=== PATIENT | female | born 1975 | race Caucasian/White ===

== ENCOUNTER 2022-11-17 09:45 | Outpatient (REF) | payer MEDICAID, SELFPAY ==
[2022-11-17 14:12] LABS: MANUAL DIFF FLAG NO
[2022-11-17 14:15] LABS: Basophils Percent Auto 0.2 % (0-2); Eosinophils Absolute Auto 0.2 X10*3/uL (0.0-0.4); Eosinophils Percent Auto 2.1 % (0-4); Hematocrit 38.8 % (37.0-47.0); Hemoglobin 12.7 g/dl (12.0-16.0); Imm Gran Abs Auto 0.03 X10*3/uL (0.00-0.03); Imm Gran Pct Auto 0.3 % (0.0-0.4); Lymphocytes Absolute Auto 2.1 X10*3/uL (1.2-4.9); Lymphocytes Percent Auto 20.6 % (20-40); Mean Corpuscular HGB Conc 32.7 g/dl (31.0-35.0); Mean Corpuscular Hemoglobin 27.9 pg (27.0-33.0); Mean Corpuscular Volume 85.3 fL (80.0-98.0); Mean Platelet Volume 12.6 fL (9.4-12.3); Monocytes Absolute Auto 0.7 X10*3/uL (0.1-1.2); Neutrophils Absolute Auto 7.1 x10*3/uL (2.0-8.3); Neutrophils Percent Auto 69.8 % (45-73); Platelet Count 171 X10*3/uL (160-400); Red Blood Count 4.55 X10*6/uL (4.20-5.50); Red Cell Distribution Width 13.4 % (11.0-16.0); White Blood Count 10.2 X10*3/uL (4.8-10.8)
[2022-11-17 14:24] LABS: Estimated Average Glucose 100 mg/dL; Hemoglobin A1c % 5.1 % (<6.0)
[2022-11-17 14:36] LABS: Alanine Aminotransferase 13 U/L (0-31); Albumin Level 3.9 g/dL (3.5-5.0); Alkaline Phosphatase 99 U/L (39-117); Anion Gap 13 (12-20); Aspartate Amino Transferase 13 U/L (5-31); Bilirubin Total 0.5 mg/dL (0.0-1.0); Blood Urea Nitrogen 11 mg/dL (9-16); Calcium 8.8 mg/dL (8.4-10.2); Carbon Dioxide 22 mmol/L (22-29); Chloride 107 mmol/L (96-108); Cholesterol 149 mg/dL (<200); Estimated Glomerular Filt Rate > 60; Glucose Fasting 84 mg/dL (60-99); HDL Cholesterol 64 mg/dL (>40); LDL Cholesterol Calculated 63 mg/dL (<100); Sodium 138 mmol/L (135-145); Total Protein 6.4 g/dL (6.5-8.0); Triglycerides 113 mg/dL (<150)
[2022-11-17 14:55] LABS: TSH reflex Free T4 1.29 uIU/mL (0.32-4.0)
== END 2022-11-17 09:46 | disposition home or self-care (01) ==
LOC: HO.CHCLDS 09:45
PROVIDERS: Visit Provider Internal Medicine
DX: I10 Essential (primary) hypertension (principal)
CPT/HCPCS: 36415; 80053; 80061; 83036; 84443; 85025

== ENCOUNTER 2022-12-16 13:24 | Outpatient (REF) | payer MEDICAID, SELFPAY ==
[2022-12-18 21:19] LABS: TS Negative Control Passed; TS Panel A 0; TS Panel B 0; TS Positive Control Passed; TSpotTB Negative (Negative)
== END 2022-12-16 13:25 | disposition home or self-care (01) ==
LOC: HO.CHCLDS 13:24
PROVIDERS: Visit Provider Internal Medicine
DX: Z11.1 Encounter for screening for respiratory tuberculosis (principal)
CPT/HCPCS: 36415; 86481

== ENCOUNTER 2024-12-19 11:12 | Outpatient (REF) | payer MEDICAID, SELFPAY ==
--- OUTSIDE RECORDS SUMMARY | 2024-12-19 10:15 | XMS_ITS | Encounter Summary ---
Author Organization [employer] Address [address] [place] [address] Care Team Providers Care Rubber Goods Cutter Finisher Name Role Phone Tutu Moore MD Primary Care Provider [phone] Reason for Referral * Consultation (Routine) - Pending Review Specialty Diagnoses / Procedures Referred By Jalen coffman Referred To Contact Gastroenterology Diagnoses Epigastric pain Tutu Moore MD [address] [place] [address] Phone: tel: fax: Referral ID Status Reason Start Date Expiration Date Visits Requested Visits Authorized [id number] Pending Review Specialty Services Required 12/19/2025 1 1 Reason for Visit * Reason Comments ER Follow-up Encounter Details Date Type Department Care Team ([facility] Contact Info) Description 12/19/2024 10:15 AM EDT Office Visit [facility] CHC MED & PEDS [address] [place] [address] Tutu Moore MD [address] [place] [address] Hyponatremia (Primary Dx); Epigastric pain; Essential hypertension [...] 12/19/2024 11:09 AM Beata Shaffer MA * Thoughts that you would be [...] agent for esophageal protection. Hold off on Wegovy for now. The letter for work was provided. This note was drafted using [employer] (AI) technology. The patient/patient's guardian has been [...] Upcoming Encounters Date Type Department Care Team ([facility] st Contact Info) Description 12/26/2024 9:00 AM EST Office Visit [facility] MED & PEDS [address] [place] [address] Tutu Moore MD [address] [place] [address] Scheduled Orders Name Type Priority Associated Diagnoses Orde r Schedule Basic Metabolic Panel Lab Routine Hyponatremia Expected: 12/19/2024 (Approximate), Expires: 12/19/2025 Scheduled Referrals Name Type Priority Associated Diagnoses Order Schedule Referral to Gastroenterology Outpatient Referral Routine Epigastric pain Expected: 12/19/2024 (Approximate), Expires: 12/19/2025 documented as of this encounter Visit Diagnoses Diagnosis Hyponatremia- Primary Hyposmolality and/or hyponatremia Epigastric pain Abdominal pain, epigastric Essential hypertension Unspecified essential hypertension documented in this encounter Additional Health Concerns Assessment Noted Time PHQ-9 Depression Total Score: 14 025 11:09 AM EDT documented as of this encounter Care Teams Rubber Goods Cutter Finisher Relationship Specialty Start Date End Date Tutu Moore MD [address] [place] [address] PCP - General Internal Medicine 02/23/18 documented as of this encounter
--- OUTSIDE RECORDS SUMMARY | 2024-12-19 14:18 | XMS_ITS | Encounter Summary ---
Author Organization [employer] Address [address] [place] [address] Care Team Providers Care Content Designer Name Role Phone Tutu Moore MD Primary Care Provider [phone] Reason for Visit * Reason Comments Med Refill Encounter Details Date Type Department Care Team (Late Contact Info) Description 11/01/2022 Refill [facility] MEDICINE [address] [place], [place] [phone] Quin Rapp MD [address] [place] [address] Hypertension, unspecified type Social History Tobacco Use Types Packs/Day Years Used Date Smoking Tobacco: Never Smokeless Tobacco: Never Alcohol Use Standard Drinks/Week Comments Never 0 (1 standard drink = 0.6 oz pur e alcohol) Depression Answer Date Recorded Patient Health Questionnaire-9 Score 0 06/06/2022 Depression Answer Date Recorded Patient Health Questionnaire-2 Score 0 06/06/2022 Comments Unknown Sex and Gender Information Value Date Recorded Sex Assigned at Female 12/23/2021 10:14 AM EDT Legal Sex Female 10:14 AM EDT Gender Identity Female 12/23/2021 10:14 AM EDT Sexual Orientation Straight 12/23/2021 10 :14 AM EDT documented as of this encounter Plan of Treatment Upcoming Encounters Date Type Department Care Team (Late Contact Info) Description 12/26/2024 9:00 AM EST Office Visit [facility] CHC MED & PEDS [address] [place], [place] [phone] Tutu Moore MD [address] [place], [place] [phone] documented as of this encounter Visit Diagnoses Diagnosis Hypertension, unspecified type documented in this encounter Additional Health Concerns Assessment Noted Time PHQ-9 Depression Total Score: 0 06/07/19 23 1:57 PM EDT documented as of this encounter Care Teams Content Designer Relationship Specialty Start Date End Date Tutu Moore MD [address] [place] [address] PCP - General Internal Medicine 02/23/18 documented as of this encounter
--- OUTSIDE RECORDS SUMMARY | 2024-12-19 14:18 | XMS_ITS | Encounter Summary ---
Author Organization [employer] Address [address] [facility] 7 [place] [address] Care Team Providers Care Aluminizer Name Role Phone Tutu Moore MD Primary Care Provider [phone] Reason for Visit * Reason Comments Med Change Request Encounter Details Date Type Department Care Team ([facility] st Contact Info) Description 04/08/2023 Refill [facility] MEDICINE [address] [place] [address] Tutu Moore MD [address] [place] [address] Stress incontinence (Primary Dx); Hypertension, unspecified type Social History Tobacco Use Types Packs/Day Years Used Date Smoking Tobacco: Never Smokeless Tobacco: Never Alcohol Use Standard Drinks/Week Comments Never 0 (1 standard drink = 0.6 oz pur e alcohol) Depression Answer Date Recorded Patient Health Questionnaire-9 Score 0 06/06/2022 Housing Stability Answer Date Recorded What is [...] Description 12/26/2024 9:00 AM EST Office Visit [facility] MED & PEDS [address] [place] [address] Tutu Moore MD [address] [place] [address] documented as of this encounter Visit Diagnoses Diagnosis Stress incontinence- Primary Female stress incontinence Hypertension, unspecified type documented in this encounter Additional Health Concerns Assessment Noted Time PHQ-9 Depression Total Score: 0 06/07/19 23 1:57 PM EDT documented as of this encounter Care Teams Aluminizer Relationship Specialty Start Date End Date Tutu Moore MD [address] [place] [address] PCP - General Internal Medicine 02/23/18 documented as of this encounter
--- OUTSIDE RECORDS SUMMARY | 2024-12-19 14:18 | XMS_ITS | Encounter Summary ---
Author Organization [employer] Address [address] [facility] [address]t [place] [address] Care Team Providers Care Malt House Loader Name Role Phone Tutu Moore MD Primary Care Provider [phone] Encounter Details Date Type Department Care Team ([facility] st Contact Info) Description 04/09/2023 Orders Only [facility] CHC MED & PEDS [address] [place], [place] [phone] Tutu Moore MD [address] [place] [address] Social History Tobacco Use Types Packs/Day Years [...] Description 12/26/2024 9:00 AM EST Office Visit [facility] MED & PEDS [address] [place] [address] Tutu Moore MD [address] [place] [address] documented as of this encounter Visit Diagnoses Not on filedocumented in this encounter Additional Health Concerns Assessment Noted Time PHQ-9 Depression Total Score: 0 06/07/19 23 1:57 PM EDT documented as of this encounter Care Teams Malt House Loader Relationship Specialty Start Date End Date Tutu Moore MD [address] [place] [address] PCP - General Internal Medicine 02/23/18 documented as of this encounter
--- OUTSIDE RECORDS SUMMARY | 2024-12-19 14:18 | XMS_ITS | Encounter Summary ---
Author Organization [employer] Address [address] [facility] 7 [place] [address] Care Team Providers Care Epic Ambulatory Analyst Name Role Phone Tutu Moore MD Primary Care Provider [phone] Reason for Visit * Reason Onset Date Comments OTHER 12/05/2022 Encounter Details Date Type Department Care Team ([facility] st Contact Info) Description 12/05/2022 Telephone [facility] MEDICINE [address] [place] [address] Tutu Moore MD [address] [place] [address] OTHER Social History Tobacco Use Types Packs/Day Years [...] AM EDT documented as of this encounter Miscellaneous Notes * Telephone Encounter - Geovanna Mann RN - 12/05/2022 4:14 PM EDT Pt requesting lab order for Tb test. Please review and advise. Thank you. * Telephone Encounter - Geovanna Mann RN - 12/05/2022 4:13 PM EDT Call to pt to schedule RN visit for tdap vaccine. No answer. Left v/m requesting return call. Please schedule RN visit (15 min) for Tdap vaccine when call is returned by pt. Thank you. * Telephone Encounter - Mikala Leigh - 12/05/2022 10:11 AM EDT Tc from patient requesting appt for TB and Tetanus shot for work. documented in this encounter Plan of Treatment Upcoming Encounters Date Type Department Care Team (Late st Contact Info) Description 12/26/2024 9:00 AM EST Office Visit [facility] MED & PEDS [address] [place] [address] Tutu Moore MD [address] [place] [address] documented as of this encounter Visit Diagnoses Not on filedocumented in this encounter Additional Health Concerns Assessment Noted Time PHQ-9 Depression Total Score: 0 06/07/19 23 1:57 PM EDT documented as of this encounter Care Teams Epic Ambulatory Analyst Relationship Specialty Start Date End Date Tutu Moore MD [address] [place] [address] PCP - General Internal Medicine 02/23/18 documented as of this encounter
--- OUTSIDE RECORDS SUMMARY | 2024-12-19 14:18 | XMS_ITS | Encounter Summary ---
Author Organization [employer] Address [address] [place] [address] Care Team Providers Care Asbestos Worker Helper Name Role Phone Tutu Moore MD Primary Care Provider [phone] Encounter Details Date Type Department Care Team (Latest Contact Info) Description 12/19/2024 Travel Social History Tobacco Use Types Packs/Day Years [...] AM EDT documented as of this encounter Functional Status * Over the [...] Author Nearly every day 12/19/2024 11:09 AM EDT Beata Parra MA * Moving or speaking so slowly [...] Ac [place] documented as of this encounter Plan of Treatment Upcoming Encounters Date Type Department Care Team (Late st Contact Info) Description 12/26/2024 9:00 AM EST Office Visit [facility] MED & PEDS [address] [place] [address] Tutu Moore MD 505 [place] [address] documented as of this encounter Visit Diagnoses Not on filedocumented in this encounter Additional Health Concerns Assessment Noted Time PHQ-9 Depression Total Score: 14 025 11:09 AM EDT documented as of this encounter Care Teams Asbestos Worker Helper Relationship Specialty Start Date End Date Tutu Moore MD [address] [place] [address] PCP - General Internal Medicine 02/23/18 documented as of this encounter
--- OUTSIDE RECORDS SUMMARY | 2024-12-19 14:18 | XMS_ITS | Encounter Summary ---
Author Organization [employer] Address [address] [place] [address] Care Team Providers Care Apricot Washer Name Role Phone Tutu Moore MD Primary Care Provider [phone] Reason for Visit * Reason Comments Med Change Request Encounter Details Date Type Department Care Team (Late Contact Info) Description 05/14/2022 Refill [facility] MED & PEDS [address] [place] [address] Quin Rapp MD [address] [place] [address] Atopic dermatitis, unspecified type Social History Tobacco Use Types Packs/Day Years Used Date Smoking Tobacco: Never Assessed Comments Unknown Sex and Gender Information Value Date Recorded Sex Assigned at Female 12/23/2021 10:14 AM EDT Legal Sex Female 10:14 AM EDT Gender Identity Female 12/23/2021 10:14 AM EDT Sexual Orientation Straight 12/23/2021 10 :14 AM EDT COVID-19 Exposure Response Date Recorded In the last 10 days, have yo u been in contact with someone who was confirmed or suspected to have Coronavirus/COVID-19? No / Unsure 05/14/2022 3:44 PM EDT documented as of this encounter Plan of Treatment Upcoming Encounters Date Type Department Care Team (Late Contact Info) Description 12/26/2024 9:00 AM EST Office Visit [facility] MED & PEDS [address] [place] [address] Tutu Moore MD 505 [place] [address] documented as of this encounter Visit Diagnoses Diagnosis Atopic dermatitis, unspecified type documented in this encounter Care Teams Apricot Washer Relationship Specialty Start Date End Date Tutu Moore MD [address] [place] [address] PCP - General Internal Medicine 02/23/18 documented as of this encounter
--- OUTSIDE RECORDS SUMMARY | 2024-12-19 14:18 | XMS_ITS | Encounter Summary ---
Author Organization [employer] [facility] [employer] Address [address] [place] [address] Care Team Providers Care Clerk General Name Role Phone Tutu Moore MD Primary Care Provider [phone] Reason for Visit * Reason Comments Med Refill Encounter Details Date Type Department Care Team (Late Contact Info) Description 11/01/2022 Refill [facility] MED & PEDS [address] [place] [address] Tutu Moore MD [address] [place] [address] Social History Tobacco Use Types Packs/Day Years [...] Description 12/26/2024 9:00 AM EST Office Visit [facility] MED & PEDS [address] [place] [address] Tutu Moore MD [address] [place] [address] documented as of this encounter Visit Diagnoses Not on filedocumented in this encounter Additional Health Concerns Assessment Noted Time PHQ-9 Depression Total Score: 0 06/07/19 23 1:57 PM EDT documented as of this encounter Care Teams Clerk General Relationship Specialty Start Date End Date Tutu Moore MD [address] [place] [address] PCP - General Internal Medicine 02/23/18 documented as of this encounter
--- OUTSIDE RECORDS SUMMARY | 2024-12-19 14:18 | XMS_ITS | Encounter Summary ---
Author Organization [employer] Address [address] [facility] 7[address] [place] [address] Care Team Providers Care Learning Support Services Director Name Role Phone Tutu Moore MD Primary Care Provider [phone] Encounter Details Date Type Department Care Team ([facility] st Contact Info) Description 12/08/2022 Orders Only [facility] MED & PEDS [address] [place], [place] [phone] Tutu Moore MD [address] [place] [address] Screening for tuberculosis (Primary Dx) Social History Tobacco Use Types Packs/Day Years [...] Description 12/26/2024 9:00 AM EST Office Visit [facility] MED & PEDS [address] [place], [place] [phone] Tutu Moore MD 505 [place] [address] documented as of this encounter Procedures Procedure Name Priority Date/Time Associated Diagnosis Comments T-SPOT(R).TB Routine 12/16/2022 1:28 PM EDT Screening for tuberculosis documented in this encounter Results * T-SPOT??.TB (12/16/2022 1:28 PM EDT) [facility] T Spot TB Negative Negative [facility] Comment:A negative test resu lt does not exclude the possibilityof exposure to or infection with Mycobacteriumtuberculosis (M. tuberculosis). Patients with recentexposure to TB infected individuals exhibiting anegative T-SPOT.TB result should be considered forretesting within 6 weeks or if other relevant clinicalsymptoms indicate. Results from T-SPOT.TB testing mustbe used in conjunction with each individual'sepidemiological history, current medical status,and results of other diagnostic evaluations.The T-SPOT.TB test is qualitative and results arereported as positive, borderline, or negative, giventhat the test controls perform as expected. In linewith the Centers for Disease Control and Prevention's2010 recommendation to report quantitative measurementsalongside the qualitative result, the laboratoryprovides spot counts for informational purposes only.The T-SPOT.TB test should not be interpreted as aquantitative test. TS PANEL A 0 [facility] TS PANEL B 0 [facility] Negative Control Passed [facility] Positive Control Passed [facility] Comment:For additional infor diana, please refer tohttp://education.Connectivity/faq/UYB025(This link is being provided for informational/educational purposes only.)THIS TEST WAS PERFORMED AT:[employer] [id number] [place] [id number] Piper ZENG MD,PHD 12/16/2022 1:28 PM EDT 12/16/2022 2:25 PM EDT us Tutu Moore MD LAB BLOOD ORDERABLES Final Result [facility] [address] [place] [address] [phone] documented in this encounter Visit Diagnoses Diagnosis Screening for tuberculosis- Primary Screening examination for pulmonary tuberculosis documented in this encounter Additional Health Concerns Assessment Noted Time PHQ-9 Depression Total Score: 0 06/07/19 23 1:57 PM EDT documented as of this encounter Care Teams Learning Support Services Director Relationship Specialty Start Date End Date Tutu Moore MD [address] [place] [address] PCP - General Internal Medicine 02/23/18 documented as of this encounter
--- OUTSIDE RECORDS SUMMARY | 2024-12-19 14:18 | XMS_ITS | Encounter Summary ---
Author Organization [employer] Address [address] [place] [address] [place], [place] [address] Care Team Providers Care Senior Manager Mmcoe Name Role Phone Tutu Moore MD Primary Care Provider [phone] Encounter Details Date Type Department Care Team ([facility] Contact Info) Description 11/21/2022 Orders Only [facility] MED & PEDS [address] [place], [place] [phone] Tutu Moore MD [address] [place] [address] Obesity (BMI 30-39.9) (Primary Dx) Social History Tobacco Use Types [...] Upcoming Encounters Date Type Department Care Team ([facility] Contact Info) Description 12/26/2024 9:00 AM EST Office Visit [facility] MED & PEDS [address] [place], [place] [phone] Tutu Moore MD [address] [place], [place] [phone] documented as of this encounter Visit Diagnoses Diagnosis Obesity (BMI 30-39.9)- Primary documented in this encounter Additional Health Concerns Assessment Noted Time PHQ-9 Depression Total Score: 0 06/07/19 23 1:57 PM EDT documented as of this encounter Care Teams Senior Manager Mmcoe Relationship Specialty Start Date End Date Tutu Moore MD [address] [place] [address] PCP - General Internal Medicine 02/23/18 documented as of this encounter
--- OUTSIDE RECORDS SUMMARY | 2024-12-19 14:19 | XMS_ITS | Encounter Summary ---
Author Organization [employer] Address [address] [facility] 7 [place] [address] Care Team Providers Care Certified Ophthalmic Technician Name Role Phone Tutu Moore MD Primary Care Provider [phone] Reason for Visit * Reason Onset Date Comments Nurse Triage 11/02/2024 Encounter Details Date Type Department Care Team ([facility] st Contact Info) Description 11/02/2024 Telephone [facility] MEDICINE [address] [place] [address] Tutu Moore MD [address] [place] [address] Nurse Triage Social History Tobacco Use Types Packs/Day Years [...] Answer Date Recorded Patient Health Questionnaire-9 Score 15 04/15/2024 Patient Health Questionnaire-9 Score 15 04/15/2024 Last PHQ-9: Questionnaire Data Not on file 0 04/15/2024 Housing Stability Answer Date Recorded What is [...] the past 12 months, has t he [employer], gas, oil or water company threatened to shut off services in your home? No 12/08/2022 Depression Answer Date Recorded Patient Health Questionnaire-2 Score 2 04/15/2024 Internet Access Answer Date Recorded Internet Access [...] Sign Reading Time Taken Comments Blood Pressure 110/63 11/02/2024 12:19 PM EDT Pulse 82 11/02/2024 12:19 PM EDT Temperature - - Respiratory Rate 18 11/02/2024 12:19 PM EDT Oxygen Saturation 99% 11/02/2024 12:19 PM EDT Inhaled Oxygen Concentration - - Weight - - Height - - Body Mass Index - - documented in this encounter Miscellaneous Notes * Telephone Encounter - Gracie Funk RN - 11/02/2024 10:52 AM EDT Triage call Pt reports dizziness for last 3 days. Symptoms occur with standing up and driving, Pt describes light headedness with a sense of unbalance and feeling drunk . Pt denies a sensation of room spinning. Pt is at work at this time and will call to pick Pt up due to concern about driving safely. Pt has not eaten today yet and has nausea at times no vomiting. Pt reports , I just want to go home, lay down and close my eyes . Pt reprots drinking adequate amount of liquids. Pt is advised no available apts in [facility] today or the next few days. [employer] can forward this information to [facility] team nurses for possible apt next week. Pt is advised may be seen by provider in [facility] today open till 8pm. Pt is given [facility] address [address] [facility] [address]. Pt will have transport thereafter work. Pt is needing an excuse to stay home from work. Pt agrees with disposition. Insurance is verified as active. Protocol Used: Dizziness (Adult) Protocol-Based Disposition: See in Office or Video Visit Today Video visit not offered Positive Triage Questions: * Moderate dizziness (e.g., interferes with normal activities) (Exception: Dizziness caused by heatexposure, sudden standing, or poor fluid intake.) * Patient wants to be seen * All higher-acuity triage questions were negative Care Advice Discussed: * Reasons To Call Back - After 2 hours of rest and fluids and you are still feeling dizzy - You pass out (faint) or are too weak to stand - You become worse * Telephone Encounter - Darren Hernandez - 11/02/2024 10:17 AM EDT Symptom: Dizziness Outcome: Schedule an urgent appointment (within 4 hours) or talk to a nurse or provider soon Reason: Started within the past 3 days The caller accepted this outcome. In additional patient describes it as pressure and feel disoriented documented in this encounter Plan of Treatment Upcoming Encounters Date Type Department Care Team (Late st Contact Info) Description 12/26/2024 9:00 AM EST Office Visit [facility] MED & PEDS [address] [place] [address] Tutu Moore MD [address] [place] [address] documented as of this encounter Visit Diagnoses Not on filedocumented in this encounter Additional Health Concerns Assessment Noted Time PHQ-9 Depression Total Score: 15 04/15/2 025 3:00 PM EST documented as of this encounter Care Teams Certified Ophthalmic Technician Relationship Specialty Start Date End Date Tutu Moore MD [address] [place] [address] PCP - General Internal Medicine 02/23/18 documented as of this encounter
--- OUTSIDE RECORDS SUMMARY | 2024-12-19 14:19 | XMS_ITS | Encounter Summary ---
Author Organization [employer] Address [address] [place] [address] Care Team Providers Care Ambulance Driver Paramedic Name Role Phone Tutu Moore MD Primary Care Provider [phone] Encounter Details Date Type Department Care Team ([facility] st Contact Info) Description 12/31/2023 Orders Only [facility] MED & PEDS [address] [place], [place] [phone] Provider, MD [place] Social History Tobacco Use Types Packs/Day Years [...] Description 12/26/2024 9:00 AM EST Office Visit [facility] MED & PEDS [address] [place] [address] Tutu Moore MD [address] [place] [address] documented as of this encounter Procedures Procedure Name Priority Date/Time Associated Diagnosis Comments MAMMOGRAPHY Routine 12/29/2023 11:01 AM EST documented in this encounter Results * Hm Mammography (12/29/2023 11:01 AM EST) Anatomical Region Laterality Modality Other Historical Provider HEALTH MAINTENANCE Final Result documented in this encounter Visit Diagnoses Not on filedocumented in this encounter Additional Health Concerns Assessment Noted Time PHQ-9 Depression Total Score: 0 06/07/19 23 1:57 PM EDT documented as of this encounter Care Teams Ambulance Driver Paramedic Relationship Specialty Start Date End Date Tutu Moore MD [address] [place] [address] PCP - General Internal Medicine 02/23/18 documented as of this encounter
--- OUTSIDE RECORDS SUMMARY | 2024-12-19 14:19 | XMS_ITS | Encounter Summary ---
Author Organization [employer] Address [address] [facility] 7[address] [place] [address] Care Team Providers Care Spray Crew Name Role Phone Tutu Moore MD Primary Care Provider [phone] Encounter Details Date Type Department Care Team ([facility] st Contact Info) Description 09/01/2023 Orders Only [facility] MED & PEDS [address] [place], [place] [phone] Tutu Moore MD [address] [place] [address] Social History Tobacco Use Types Packs/Day Years [...] 9:00 AM EST Office Visit [facility] MED & PEDS [address] [place] [address] Tutu Moore MD [address] [place] [address] documented as of this encounter Visit Diagnoses Not on filedocumented in this encounter Additional Health Concerns Assessment Noted Time PHQ-9 Depression Total Score: 0 06/07/19 23 1:57 PM EDT documented as of this encounter Care Teams Spray Crew Relationship Specialty Start Date End Date Tutu Moore MD [address] [place] [address] PCP - General Internal Medicine 02/23/18 documented as of this encounter
--- OUTSIDE RECORDS SUMMARY | 2024-12-19 14:19 | XMS_ITS | Clinical Summary ---
Author Organization [employer] Address [address] [facility] 7t [place] [address] Care Team Providers Care Encapsulator Name Role Phone Tutu Moore MD Primary Care Provider [phone] Allergies No known active allergies Medications buPROPion XL (Wellbutrin XL) 150 MG 24 hr tablet Take 150 mg by mouth in the morning. 04/03/19 23 Active clonazePAM (KlonoPIN) 1 MG tablet TAKE ONE (1) TABLET BY MOUTH TWICE A DAY FOR ANXIETY 04/28/19 23 Active cloNIDine (Catapres) 0.1 MG tablet Take 0.1 mg by mouth if needed in the morning and at bedtime. 04/28/19 23 Active Cyanocobalamin (B-12) [address] 1 tablet under the tongue in the morning. 04/22/19 23 Active OXcarbazepine (Trileptal) 600 MG tablet Take 600 mg by mouth 2 times daily. 03/13/19 23 Active QUEtiapine (SEROquel) 100 MG tablet Take 100 mg by mouth at bedtime. 04/03/19 23 Active temazepam (Restoril) 30 MG capsule TAKE ONE CAPSULE BY MOUTH AT BEDTIME NEEDED FOR SLEEP 05/11/19 23 Active clobetasol (Temovate) 0.05 % ointmentIndicat ions:Atopic dermatitis, unspecified type Apply topically 2 times daily. 90 g 05/15/19 23 Active Diclofenac Sodium 1 % gelIndications: Chronic pain of right knee APPLY 2 GRAMS TO AFFECTED AREA TWICE A DAY 100 g 2 03/02/19 24 Active diphenhydrAMINE (BENADryl) 25 MG tablet Take 1 tablet (25 mg) by mouth if needed at bedtime (cough) for up to 15 days. 15 tablet 04/21/19 24 Active albuterol 108 (90 Base) MCG/ACT inhaler USE 1-2 PUFFS EVERY 6 HOURS NEEDED FOR COUGH 18 g 11 05/14/19 24 Active solifenacin (VESIcare) 10 MG tabletIndicatio ns:Stress incontinence TAKE 1 TABLET BY MOUTH EVERY DAY IN THE MORNING 90 tablet 3 02/25/19 25 Active NIFEdipine CC (Adalat CC) 30 MG 24 hr tabletIndicatio ns:Hypertension , unspecified type TAKE 1 TABLET (30 MG) BY MOUTH BEFORE BREAKFAST. 90 tablet 3 03/30/19 25 Active propranolol (Inderal) 40 MG tablet TAKE 1 TABLET BY MOUTH TWICE DAILY. 180 tablet 1 08/23/19 25 Active omeprazole (PriLOSEC) [address] capsuleIndicati ons:Gastroesoph ageal reflux disease without esophagitis TAKE 1 CAPSULE BY MOUTH TWICE A DAY 180 capsule 1 08/23/19 25 Active meclizine (Antivert) 25 MG tablet Take 1 tablet (25 mg) by mouth if needed in the morning, at noon, in the evening, and at bedtime for dizziness or nausea. 30 tablet 1 11/03/19 25 026 Active ondansetron (Zofran) 4 MG tablet Take 1 tablet (4 mg) by mouth every 8 (eight) hours if needed for nausea or vomiting for up to 20 doses. 10 tablet 1 12/02/19 25 Active Wegovy 2.4 MG/0.75ML solution auto-injector Inject 2.4 mg under the skin every 7 (seven) days. 11/03/19 25 026 Active ibuprofen 800 MG tablet Take 1 tablet (800 mg) by mouth every 8 (eight) hours if needed for mild pain, fever, moderate pain or headaches. 45 tablet 1 12/13/19 25 Active sucralfate (Carafate) 1 g tabletIndicatio ns:Epigastric pain Take 1 tablet (1 g) by mouth before breakfast, before lunch, before evening meal, and at bedtime. 120 tablet 11 12/20/19 25 026 Active cholecalciferol (Vitamin D-3) 1.25 MG (02453 UT) capsule TAKE 1 CAPSULE BY MOUTH ONE TIME PER WEEK 04/22/19 025 Discontinued( erapy completed) ferrous sulfate 324 (65 Fe) MG EC tablet Take 324 mg by mouth 2 times daily. 04/22/19 025 Discontinued(Me d list cleanup (will not trigger notification to Pharmacy)) QUEtiapine (SEROquel) 50 MG tablet Take 50 mg by mouth if needed in the morning and at bedtime. 04/03/19 025 Discontinued(Me d list cleanup (will not trigger notification to Pharmacy)) thiamine (Vitamin B-1) 100 MG tablet Take 100 mg by mouth in the morning. 04/22/19 025 Discontinued( erapy completed) Atogepant (Qulipta) 10 MG tabletIndicatio ns:Chronic migraine with aura without status migrainosus, not intractable Take 10 mg by mouth Once per day. 30 tablet 11 06/17/19 025 Discontinued( erapy completed) Liraglutide -Weight Management (Saxenda) 18 MG/3ML solution pen-injectorInd ications:Obesit y (BMI 30-39.9) Inject 0.6 mg under the skin Once daily. 0.6 mg once daily for 1 week; increase by 0.6 mg daily at weekly intervals to a target dose of 3 mg once daily. 3 mL 11 06/25/19 025 Discontinued(Me d list cleanup (will not trigger notification to Pharmacy)) azithromycin (Zithromax) 250 MG tabletIndicatio ns:Sore throat,Other cough TAKE 2 TABLETS BY MOUTH TODAY, THEN TAKE 1 TABLET DAILY FOR 4 DAYS DIRECTED 6 tablet 09/22/19 025 Discontinued( erapy completed) insulin pen needle (B-D ULTRAFINE III SHORT PEN) 31G X 8 mm miscIndications :Obesity (BMI 30-39.9) Use daily with Saxenda 100 each 12 10/23/19 025 Discontinued(En tered in error) Ivabradine HCl 5 MG tablet TAKE 1/2 TABLET TWICE A DAY BY MOUTH 30 tablet 4 03/07/19 025 Discontinued(Me d list cleanup (will not trigger notification to Pharmacy)) ondansetron (Zofran) 4 MG tablet Take 1 tablet (4 mg) by mouth every 8 (eight) hours if needed for nausea or vomiting for up to 20 doses. 10 tablet 1 11/03/19 25 025 Discontinued(Re order (will not trigger notification to Pharmacy)) methocarbamol (Robaxin) 750 MG tabletIndicatio ns:Muscle strain TAKE 1 TABLET (750 MG) BY MOUTH 4 TIMES DAILY FOR 10 DAYS. 40 tablet 11/04/19 25 025 Discontinued(Th erapy completed) meclizine (Antivert) 25 MG tabletIndicatio ns:Vertigo Take 1 tablet (25 mg) by mouth if needed in the morning, at noon, and at bedtime for dizziness for up to 10 days. 30 tablet 12/06/19 25 025 ondansetron (Zofran) 4 MG tabletIndicatio ns:Vertigo Take 1 tablet (4 mg) by mouth every 8 (eight) hours if needed for nausea or vomiting for up to 7 days. 20 tablet 12/06/19 25 025 Active Problems Problem Noted Date Diagnosed Date Paroxysmal supraventricular tachycardia 01/19/20 24 Essential hypertension 12/21/2017 Headache 12/30/2012 Cobalamin deficiency 12/30/2012 Insomnia 12/30/2012 Stress incontinence 12/30/2012 Vitamin D deficiency 12/30/2012 Depressive disorder 10/18/2012 Anxiety 10/18/2012 Encounters Date Type Department Care Team Description 12/19/2024 10:15 AM EDT Office Visit [facility] [address], [place] [phone] Tutu Moore MD Hyponatremia (Primary Dx); Epigastric pain; Essential hypertension 12/19/2024 Travel 12/16/2024 Telephone [facility] [address], [place] [phone] Tutu Moore MD CHART PREP 12/15/2024 Telephone [facility] [address], [place] [phone] Tutu Moore MD Call Back Request 12/13/[address] [address] Tutu Moore MD triage 12/12/2024 11:30 AM EDT Office Visit [facility] [address] [place] [address] Catalina Nava MD Viral illness (Primary Dx); Chronic cluster headache, not intractable; Essential hypertension 12/12/2024 Travel 12/12/2024 Telephone [facility] [address] [place] [address] Tutu Moore MD Nurse Triage 12/05/2024 3:45 PM EDT Office Visit [facility] [address] [place] [address] Tutu Moore MD Vertigo (Primary Dx) 12/05/2024 Travel 12/01/2024 Telephone [facility] [address] [place] [address] Tutu Moore MD Care Coordination 12/01/2024 Refill [facility] [address] [place] [address] Tutu Moore MD 11/02/2024 3:40 PM EDT Office Visit [facility] [address] [place] [address] Eduard Simeon MD Vertigo (Primary Dx) 11/02/2024 Refill [facility] [address] [place] [address] Tutu Moore MD Muscle strain 11/02/2024 Travel 11/02/2024 Telephone [facility] [address] [place] [address] Tutu Moore MD Nurse Triage from Last 3 Months Immunizations Immunization Administration Dates Next Due Hep B, adult 06/04/2012,12/19/2011,11/10/2011 Influenza injectable quadriv alent IIV4 with preservative 12/18/2015,11/28/2014 Influenza injectable quadriv alent preservative free 12/16/2022 Influenza, IIV3, injectable 12/08/2007 Influenza, Split (incl. hanna fied surface antigen) 11/07/2011 MMR 12/19/2011,11/21/2011 Tdap 12/16/2022,11/10/2011,06/22/2008 Family History Medical History Relation Name Comments Brain cancer Mother's Sister Lung cancer Mother's Sister Relation Name Status Comments Mother's Sister Social History Tobacco Use Types Packs/Day Years Used Date Smoking Tobacco: Never Smokeless Tobacco: Never Tobacco Cessation:Counseling Given: No Alcohol Use Standard Drinks/Week Comments Never 0 [...] Orientation Straight 12/23/2021 10 :14 AM EDT Last Filed Vital Signs Vital Sign Reading Time Taken Comments Blood Pressure 111/63 12/19/2024 10:33 AM EDT Pulse 99 12/19/2024 10:33 AM EDT Temperature 36 C (96.8 F) 12/12/2024 11:33 AM EDT Respiratory Rate 20 12/19/2024 10:33 AM EDT Oxygen Saturation 99% 12/19/2024 10:33 AM EDT Inhaled Oxygen Concentration - - Weight 86.6 kg (191 lb) 12/19/2024 10:33 AM EDT Height 163.8 cm (5' 4.5 ) 12/19/2024 10:33 AM ED T Body Mass Index 32.28 12/19/2024 10:33 AM EDT Plan of Treatment Upcoming Encounters Date Type Department Care Team ([facility] st Contact Info) Description 12/26/2024 9:00 AM EST Office Visit [facility] [address] [place] [address] Tutu Moore MD [address] [place] [address] Health Maintenance Due Date Last Done Comments CT Colonography 1977 Colonoscopy 1977 FIT DNA/Cologuard 1977 FIT 1977 HIV Screening 1977 Sigmoidoscopy 1977 Family Planning (PISQ) 1992 Hepatitis C Screening 10/12/1995 Colorectal Cancer Screening 06/04/2024 FOBT 06/04/2024 06/05/2023 COVID-19 Vaccine ( season) 2024 12/24/2020, 04/16/2020, 03/25/2020 Influenza Vaccine (#1) 2024 , 12/18/2015, 11/28/2014, Additional history exists Alcohol/Substance Use Screening 04/15/2025 04/15/2024 SDOH Screening 04/15/2025 04/15/2024 Depression Monitoring 06/19/2025 12/19/2024, 025 Tobacco Screening 11/02/2025 11/02/2024 Disability Screening 12/19/2025 12/19/2024 Mammogram 12/28/2025 12/29/2023, 11/0 06/2023, 12/29/2023 Zoster Vaccines (1 of 2) 10/12/2027 Lipid Panel 11/18/2027 11/17/2022, 05/17/2021 Cervical Cancer Screening 06/11/2028 HPV/Cotest 06/11/2028 Pap Smear 06/11/2028 06/12/2023 DTaP/Tdap/Td Vaccines (4 - Td or Tdap) 12/16/2032 12/16/2022, 11/10/2011, 06/22/2008 RSV Patients and Patients Aged 60 years or older (1 - 1-dose 75+ series) 2052 Hepatitis B Vaccines Completed 06/04/2012, 12/19/2011, 11/10/2011 HIB Vaccines Aged Out No longer eligi ble based on patient's age to complete this topic HPV Vaccines Aged Out No longer eligi ble based on patient's age to complete this topic Hepatitis A Vaccines Aged Out No long er eligible based on patient's age to complete this topic IPV Vaccines Aged Out No longer eligi ble based on patient's age to complete this topic Meningococcal B Vaccine Aged Out No l onger eligible based on patient's age to complete this topic Meningococcal Vaccine Aged Out No sydnie veronica eligible based on patient's age to complete this topic Pneumococcal Vaccine: Pediatrics (0 to 5 Years) and At-Risk Patients (6 to 49) Years Aged Out No longer eligible based on patient's age to complete this topic RSV under 20 months Aged Out No longe r eligible based on patient's age to complete this topic Rotavirus Vaccines Aged Out No longer eligible based on patient's age to complete this topic Procedures Procedure Name Priority Date/Time Associated Diagnosis Comments POCT INFLUENZA B (ID NOW RAPID MOLECULAR) Routine 12/12/2024 2:23 PM EDT Chronic cluster headache, not intractable POCT INFLUENZA A (ID NOW RAPID MOLECULAR) Routine 12/12/2024 2:23 PM EDT Chronic cluster headache, not intractable POCT RAPID COVID ANTIGEN Routine 12/12/2024 12:22 PM EDT Chronic cluster headache, not intractable HM MAMMOGRAPHY Routine 12/29/2023 11:01 AM EST PAP SMEAR Routine 06/12/2023 IFOBT Routine 06/05/2023 9:49 AM EDT LIPID PANEL, STANDARD Routine 11/17/2022 9:54 AM EDT Essential hypertension from Last 3 Months or Most Recently Relevant to Health Maintenance Results * POCT Rapid Influenza B SOOD ID NOW (12/12/2024 2:23 PM EDT) Influenza B Negative Negative, Indeterminate [facility] QC Media Lot # [id number] [facility] Lot# Expiration Date [facility] Swab 12/12/2024 2:23 PM EDT Catalina Nava MD POINT OF CARE TEST ENTER/EDIT OR DERABLES Final Result Performing Organization Address City/[facility]/ZIP Co de Phone Number [facility] [address] [place] [phone] * POCT Rapid Influenza A SOOD ID NOW (12/12/2024 2:23 PM EDT) Influenza A Negative Negative, Indeterminate [facility] QC Media Lot # [id number] [facility] Lot# Expiration Date [facility] Swab 12/12/2024 2:23 PM EDT Catalina Nava MD POINT OF CARE TEST ENTER/EDIT OR DERABLES Final Result Performing Organization Address City/[facility]/ZIP Co de Phone Number [facility] [address] [place] [phone] * POCT Rapid Covid-19 BinaxNOW (12/12/2024 12:22 PM EDT) Rapid COVID Ag Negative QC Media Lot # [id number] Lot# Expiration Date [id number] Swab 12/12/2024 12:2 2 PM EDT Catalina Nava MD POINT OF CARE TEST ENTER/EDIT OR DERABLES Final Result * Hm Mammography (12/29/2023 11:01 AM EST) Anatomical Region Laterality Modality Other Historical Provider HEALTH MAINTENANCE Final Result * Pap Smear (06/12/2023) Pathologist [facility] Pap Smear 1. NILM 1. NILM Swab 06/12/2023 Historical Provider LAB CYTOLOGY ORDERABLES F inal Result * gFOBT (06/05/2023 9:49 AM EDT) Historical Provider POINT OF CARE TEST ENTER/ EDIT ORDERABLES Final Result * Lipid Panel, Standard (11/17/2022 9:54 AM EDT) Triglycerides 113 <150 mg/dL [facility] Comment:Desirable Triglyceri de: less than 150 mg/dLBorderline High Triglyceride 150-199 mg/dLHigh Triglyceride: 200-499 mg/dLVery High Triglyceride: greater than or equal to 5OO mg/dL Cholesterol 149 <200 mg/dL [facility] Comment:Desirable Cholestero l: less than 200 mg/dLBorderline High Cholesterol: 200-239 mg/dLHigh Cholesterol: greater than 239 mg/dL LDL Cholesterol Calculated 63 <100 mg/dL [facility] Comment:Desirable LDL: less than 100 mg/dLNear Optimal/Above Optimal LDL: 110- 129 mg/dLBorderline High LDL: 130-159 mg/dLHigh LDL: 160-189 mg/dLVery High LDL: greater than or equal to 190 mg/dL HDL Cholesterol 64 >40 mg/dL [facility] Comment:Desirable HDL: great er than 40 mg/dL Note: This HDL assay may give artificially low results in patients with liver disease. Blood Venous blood specimen / Unknown 11/17/2022 9:54 AM EDT 11/17/2022 2:06 PM EDT us Tutu Moore MD LAB BLOOD ORDERABLES Final Result [facility] [address] [place] [phone] [phone] from Last 3 Months or Most Recently Relevant to Health Maintenance Insurance [place] [address] , [address] [place] [address] [place] [id number] ARBELLA Care Teams Encapsulator Relationship Specialty Start Date End Date Tutu Moore MD [address] [place] [address] [place] [address] PCP - General Internal Medicine 02/23/18
--- OUTSIDE RECORDS SUMMARY | 2024-12-19 14:19 | XMS_ITS | Encounter Summary ---
Author Organization [email or web address] Address [address] [facility] 7 [place] [address] Care Team Providers Care Oil And Gas Drafter Name Role Phone Tutu Moore MD Primary Care Provider [phone] Encounter Details Date Type Department Care Team ([facility] st Contact Info) Description 10/21/2023 Orders Only [facility] [address] [place], [place] [phone] Tutu Moore MD [address] [place] [address] Obesity (BMI 30-39.9) Social History Tobacco Use Types Packs/Day Years [...] Description 12/26/2024 9:00 AM EST Office Visit [facility] [address] [place] [address] Tutu Moore MD [address] [place] [address] documented as of this encounter Visit Diagnoses Diagnosis Obesity (BMI 30-39.9) documented in this encounter Additional Health Concerns Assessment Noted Time PHQ-9 Depression Total Score: 0 06/07/19 23 1:57 PM EDT documented as of this encounter Care Teams Oil And Gas Drafter Relationship Specialty Start Date End Date Tutu Moore MD [address] [place] [address] PCP - General Internal Medicine 02/23/18 documented as of this encounter
--- OUTSIDE RECORDS SUMMARY | 2024-12-19 14:19 | XMS_ITS | Encounter Summary ---
Author Organization [email or web address] Address [address] [facility] [address]t [place] [address] Care Team Providers Care Licensed Master Social Worker Name Role Phone Tutu Moore MD Primary Care Provider [phone] Encounter Details Date Type Department Care Team ([facility] st Contact Info) Description 11/03/2023 Orders Only [facility] [address] [place] [address] Provider, MD Dakotah Social History Tobacco Use [...] Description 12/26/2024 9:00 AM EST Office Visit [facility] [address] [place] [address] Tutu Moore MD [address] [place] [address] documented as of this encounter Procedures Procedure Name Priority Date/Time Associated Diagnosis Comments HM IFOBT Routine 06/05/2023 9:49 AM EDT documented in this encounter Results * HM gFOBT (06/05/2023 9:49 AM EDT) Historical Provider POINT OF CARE TEST ENTER/ EDIT ORDERABLES Final Result documented in this encounter Visit Diagnoses Not on filedocumented in this encounter Additional Health Concerns Assessment Noted Time PHQ-9 Depression Total Score: 0 06/07/19 23 1:57 PM EDT documented as of this encounter Care Teams Licensed Master Social Worker Relationship Specialty Start Date End Date Tutu Moore MD [address] [place] [address] PCP - General Internal Medicine 02/23/18 documented as of this encounter
--- OUTSIDE RECORDS SUMMARY | 2024-12-19 14:19 | XMS_ITS | Encounter Summary ---
Author Organization [employer] Address [address] [place] [address] Care Team Providers Care Death Clearance Coordinator Name Role Phone Tutu Moore MD Primary Care Provider [phone] Reason for Visit * Reason Comments Med Refill Encounter Details Date Type Department Care Team ([facility] Contact Info) Description 04/27/2022 Refill [facility] [address] [place], [place] [phone] Tutu Moore MD [address] [place] [address] Chronic pain of right knee (Primary Dx); Chronic dermatitis Social History Tobacco Use Types Packs/Day Years [...] Upcoming Encounters Date Type Department Care Team ([facility] Contact Info) Description 12/26/2024 9:00 AM EST Office Visit [facility] [address] [place] [address] Tutu Moore MD [address] [place] [address] documented as of this encounter Visit Diagnoses Diagnosis Chronic pain of right knee- Primary Chronic dermatitis Contact dermatitis and other eczema, due to unspecified cause documented in this encounter Care Teams Death Clearance Coordinator Relationship Specialty Start Date End Date Tutu Moore MD [address] [place] [phone] PCP - General Internal Medicine 02/23/18 documented as of this encounter
--- OUTSIDE RECORDS SUMMARY | 2024-12-19 14:19 | XMS_ITS | Encounter Summary ---
Author Organization [employer] Address [address] [facility] 7t [place] [address] Care Team Providers Care Control Engineer Name Role Phone Tutu Moore MD Primary Care Provider [phone] Encounter Details Date Type Department Care Team ([facility] st Contact Info) Description 07/16/2023 Telephone [facility] [address] [place] [address] Tutu Moore MD [address] [place] [address] Social History Tobacco Use Types Packs/Day Years [...] Description 12/26/2024 9:00 AM EST Office Visit [facility] [address] [place] [address] Tutu Moore MD [address] [place] [address] documented as of this encounter Visit Diagnoses Not on filedocumented in this encounter Additional Health Concerns Assessment Noted Time PHQ-9 Depression Total Score: 0 06/07/19 23 1:57 PM EDT documented as of this encounter Care Teams Control Engineer Relationship Specialty Start Date End Date Tutu Moore MD [address] [place] [address] PCP - General Internal Medicine 02/23/18 documented as of this encounter
--- OUTSIDE RECORDS SUMMARY | 2024-12-19 14:19 | XMS_ITS | Clinical Summary ---
Author Organization [facility] Address [address] [place] [address] Care Team Providers Care Property Administrator Name Role Phone Unavailable Primary Care Provider Unavailabl e Source Comments PLEASE NOTE, if this patient is a minor, it may be UNLAWFUL to discuss sensitive information that is contained in these records (such as FAMILY PLANNING, MENTAL HEALTH or SUBSTANCE ABUSE) with the minor patient's parent or other person without the patient's specific authorization.[facility] Medications buPROPion XL (WELLBUTRIN XL) 150 mg 24 hr tablet Take 150 mg by mouth every morning Active Active Problems No known active problems Encounters Date Type Department Care Team Description 11/18/2024 3:00 PM EDT Office Visit [id number] [place] [phone] Mary Ferrari DDS from Last 3 Months Social History Tobacco Use Types Packs/Day Years Used Date Smoking Tobacco: Never Assessed Social Connections Answer Date Recorded Connectedness 0 11/17/2023 Financial Resource Strain Answer Date R ecorded Financial Resource Strain 0 2023 Stress Answer Date Recorded Stress 0 11/17/2023 Physical Activity Answer Date Recorded Physical Activity 0 11/17/2023 Food Insecurity Answer Date Recorded Food 0 11/20/2023 Transportation Needs Answer Date Record ed Transportation 0 11/17/2023 Housing Stability Answer Date Recorded Housing 0 11/17/2023 Safety and Environment Answer Date Amanuel rded Safety 0 11/17/2023 Utilities Answer Date Recorded Utilities 0 11/17/2023 Employment Answer Date Recorded Stress 0 11/17/2023 Comments Unknown Sex and Gender Information Value Date Recorded Sex Assigned at Not on file Legal Sex Female 11:46 AM PDT Gender Identity Not on file Sexual Orientation Not on file Last Filed Vital Signs Vital Sign Reading Time Taken Comments Blood Pressure 128/74 11/18/2024 3:09 PM EDT Pulse 87 11/18/2024 3:09 PM EDT Temperature - - Respiratory Rate - - Oxygen Saturation - - Inhaled Oxygen Concentration - - Weight - - Height - - Body Mass Index - - Plan of Treatment Upcoming Encounters Date Type Department Care Team (Late st Contact Info) Description 12/26/2024 4:20 PM EST Office Visit [facility] [address] [place] [phone] Vega johan, DDS [address] [place] [address] Health Maintenance Due Date Last Done Comments Anxiety Screening 1977 HPV Screening (self-collect) 1977 HPV Screening 1977 Hepatitis C Screening 1977 Pap + HPV 1977 Tobacco Screening 1977 HIV Screening 1992 Relationship Safety Screening/Counseling 1992 Cervical Cancer Screening [address] Colonography 2022 Colonoscopy 2022 Colorectal Cancer Screening 2022 FIT/gFOBT 2022 Fecal DNA 2022 Flexible Sigmoidoscopy 2022 Alcohol and Drug Screen 02/24/2024 Depression Annual Screen 02/24/2024 [id number] ( season) 2024 021 Imm-Influenza (#1) 2024 12/16/2022, 1 , 11/28/2014, Additional history exists Dental Perio Charting 04/07/2025 04/05/2024 Dental Prophy 04/07/2025 04/05/2024 Diabetes Screening 11/17/2025 11/17/2022, 05/17/2021 Hypertension Screening (#1) 11/18/2025 Dental BW 11/20/2025 11/18/2024, 04/05/2024 Dental Examination 11/20/2025 11/18/2024, 04/05/2024 Breast Cancer Screening (Mammogram) 12/28/2025 12/29/2023 Lipid Screening 11/18/2027 11/17/2022, 02/08/2001 Dental FMX/Pano 04/07/2029 04/05/2024 Imm-DTaP/Tdap/Td (4 - Td or Tdap) 12/16/2032 12/16/2022, 11/10/2011, 06/22/2008 Imm-Hepatitis B Completed 06/04/2012, 11/24, 11/10/2011 Cervical Ablation/Cold-Knife Conization Discontinued Cervical Cryotherapy Discontinued Colposcopy Discontinued Excision/Leep Discontinued HPV Genotyping Discontinued Vaginal Pap Discontinued Vulvoscopy Discontinued Procedures Procedure Name Priority Date/Time Associated Diagnosis Comments CASE PRESENTATION SUBS DTL & EXTENSIVE TX PLN Routine 11/18/2024 3:00 PM EDT [facility] CARIES RISK ASSESSMENT & DOC FINDING HIGH RISK Routine 11/18/2024 3:00 PM EDT [facility] NUTRITIONAL COUNSELING CONTROL OF DENTAL DISEASE Routine 11/18/2024 3:00 PM EDT [facility] ORAL HYGIENE INSTRUCTIONS Routine 11/18/2024 3:00 PM EDT [facility] BITEWINGS - FOUR RADIOGRAPHIC IMAGES Routine 11/18/2024 3:00 PM EDT Defective dental roman catholic Caries Full PERIODIC ORAL EVALUATION ESTABLISHED PATIENT Routine 11/18/2024 3:00 PM EDT [facility] INTRAORAL - COMP SERIES OF RADIOGRAPHIC IMAGES Routine 04/05/2024 3:00 PM EST Caries of enamel (incipient) Defective dental roman catholic Caries PROPHYLAXIS - ADULT Routine 04/05/2024 3 :00 PM EST Caries Defective dental roman catholic Caries of enamel (incipient) from Last 3 Months or Most Recently Relevant to Health Maintenance Insurance [place] MEDICAID DENTAL
--- OUTSIDE RECORDS SUMMARY | 2024-12-19 14:19 | XMS_ITS | Encounter Summary ---
Author Organization [employer] Address [address] [address] Care Team Providers Care Doorkeeper Name Role Phone Tutu Moore MD Primary Care Provider [phone] Reason for Visit * Reason Onset Date Comments CHART PREP 12/16/2024 Encounter Details Date Type Department Care Team ([facility] st Contact Info) Description 12/16/2024 Telephone [facility] MED & PEDS [address] [place] [address] Tutu Moore MD [address] [place] [address] CHART PREP Social History Tobacco Use Types Packs/Day Years [...] encounter Miscellaneous Notes * Telephone Encounter - Florence Snyder MA - 12/16/2024 11:06 AM EDT Chart Prep Labs: done Images: not done Referrals: appointment pending Vaccines due: Covid and Flu Screenings: colonoscopy Overdue care gaps: PHQ-9 and Disability screen documented in this encounter Plan of Treatment Upcoming Encounters Date Type Department Care Team ([facility] st Contact Info) Description 12/26/2024 9:00 AM EST Office Visit [facility] MED & PEDS [address] [place] [address] Tutu Moore MD [address] [place] [address] documented as of this encounter Visit Diagnoses Not on filedocumented in this encounter Additional Health Concerns Assessment Noted Time PHQ-9 Depression Total Score: 15 025 3:00 PM EST documented as of this encounter Care Teams Doorkeeper Relationship Specialty Start Date End Date Tutu Moore MD [address] [place] [address] PCP - General Internal Medicine 02/23/18 documented as of this encounter
--- OUTSIDE RECORDS SUMMARY | 2024-12-19 14:19 | XMS_ITS | Encounter Summary ---
Author Organization [employer] Address [address] [address] Care Team Providers Care Surgical Corsetier Name Role Phone Tutu Moore MD Primary Care Provider [phone] Reason for Visit * Reason Onset Date Comments Call Back Request 12/15/2024 Encounter Details Date Type Department Care Team ([facility] Contact Info) Description 12/15/2024 Telephone [facility] CHC MED & PEDS [address] [place] [address] Tutu Moore MD [address] [place] [address] Call Back Request Social History Tobacco Use Types Packs/Day Years [...] encounter Miscellaneous Notes * Telephone Encounter - Dulce Maria Grant RN - 12/15/2024 9:54 AM EDT TC to patient. Patient not available at this time. Will return call PRN. * Telephone Encounter - Abraham Ken - 12/15/2024 8:42 AM EDT Tc from pt reporting she was advised to call back. Contact pt at [phone] documented in this encounter Plan of Treatment Upcoming Encounters Date Type Department Care Team ([facility] st Contact Info) Description 12/26/2024 9:00 AM EST Office Visit [facility] MED [facility] PEDS [address] [place], [place] [phone] Tutu Moore MD [address] [place], [place] [phone] documented as of this encounter Visit Diagnoses Not on filedocumented in this encounter Additional Health Concerns Assessment Noted Time PHQ-9 Depression Total Score: 15 025 3:00 PM EST documented as of this encounter Care Teams Surgical Corsetier Relationship Specialty Start Date End Date Tutu Moore MD [address] [place] [id number] PCP - General Internal Medicine 02/23/18 documented as of this encounter
--- OUTSIDE RECORDS SUMMARY | 2024-12-19 14:19 | XMS_ITS | Encounter Summary ---
Author Organization [employer] Address [address] [address] [place] [address] Care Team Providers Care Sales Agent Pest Control Service Name Role Phone Tutu Moore MD Primary Care Provider [phone] Encounter Details Date Type Department Care Team (Late st Contact Info) Description 11/02/2023 Abstract [facility] MED & PEDS [address] [place], [place] [phone] Lenin [place], [place] Social History Tobacco Use Types Packs/Day Years [...] Description 12/26/2024 9:00 AM EST Office Visit [facility] CHC MED & PEDS [address] [place] [address] Tutu Moore MD [address] [place] [address] documented as of this encounter Procedures Procedure Name Priority Date/Time Associated Diagnosis Comments PAP SMEAR Routine 06/12/2023 documented in this encounter Results * Pap Smear (06/12/2023) Pap Smear 1. NILM 1. NILM Swab 06/12/2023 us Historical Provider LAB CYTOLOGY ORDERABLES F inal Result documented in this encounter Visit Diagnoses Not on filedocumented in this encounter Additional Health Concerns Assessment Noted Time PHQ-9 Depression Total Score: 0 06/07/19 23 1:57 PM EDT documented as of this encounter Care Teams Sales Agent Pest Control Service Relationship Specialty Start Date End Date Tutu Moore MD [address] [place] [address] PCP - General Internal Medicine 02/23/18 documented as of this encounter
--- OUTSIDE RECORDS SUMMARY | 2024-12-19 14:19 | XMS_ITS | Clinical Summary ---
Author Organization [address] [facility] Address [address] [place] [address] Phone Care Team Providers Care Principal Technologist Name Role Phone Tutu Moore MD Primary Care Provider [phone] Allergies No known active allergies Medications POTASSIUM CITRATE ORAL Take by mouth. 2 in the am and 2 pm Active BUPROPION HBR ORAL Take by mouth. Active LORazepam (ATIVAN) 1 mg tablet Take 1 mg by mouth every 6 hours as needed. Active oxcarbazepine (TRILEPTAL ORAL) Take by mouth. Active amLODIPine-atorv astatin (CADUET) 5-10 mg per tablet Take 1 tablet by mouth daily. Active omeprazole (PRILOSEC) 20 mg tablet,delayed release (DR/EC) Take by mouth. Active propranolol HCl (PROPRANOLOL ORAL) Take 1 Tab by mouth daily. Active cholecalciferol (VITAMIN D-3) 1,250 mcg (50,000 unit) capsule TAKE 1 CAPSULE BY MOUTH ONE TIME PER WEEK *NC BY INS* 12 capsule 1 03/25/2024 Active thiamine 100 mg tabletIndication s:Thiamine deficiency, unspecified TAKE 1 TABLET BY MOUTH EVERY DAY. 90 tablet 3 03/28/2024 Active topiramate (TOPAMAX) 50 mg tablet TAKE 1 TABLET BY MOUTH TWICE A DAY 180 tablet 1 05/04/2024 Active semaglutide (Wegovy) 2.4 mg/0.75 mL injection pen Inject 2.4 mg under the skin every 7 (seven) days. 3 mL 3 11/02/2024 05/02/19 26 Active cyanocobalamin, vitamin B-12, 1,000 mcg tablet, sublingualIndica tions:Deficiency of other specified B group vitamins PLACE 1 TABLET UNDER THE TONGUE DAILY FOR 90 DAYS. 90 tablet 2 11/16/2024 Active Active Problems Problem Noted Date Diagnosed Date Sleep apnea in adult 01/25/2024 Tachycardia 01/25/2024 Class 2 obesity due to exces s calories with body mass index (BMI) of 39.0 to 39.9 in adult 01/25/2024 Other complications of gastric band procedure Breakthrough bleeding associ ated with intrauterine device (IUD) 09/06/2018 Overview (01/25/2024): Last Assessment & Plan: Recommended we obtain an US given this bleeding pattern is new and prolonged. She would like to wait and see if it improves in the next couple weeks given her stress has now started to improve. If not, she will call and we will place an order for an US. Iron deficiency anemia 03/15/2018 Vitamin D deficiency 12/30/2012 Anxiety 10/18/2012 Vitamin B12 deficiency 09/12/2008 Depression 06/22/2008 Encounters Date Type Department Care Team Description 11/01/2024 Telephone Bariatric Surgery - [address] [place] [address] Diamond Li MD from Last 3 Months Immunizations Immunization Administration Dates Next Due Hepatitis B (Ixklghe-N-Fjaes , Recombivax HB-Adult) 19yo and older 06/04/2012,12/19/2011,11/10/2011 Influenza Quadrivalent, 0.5m l, preservative free (Fluarix; FluLaval; Fluzone) ages 6mo and older (Afluria) 3yo and older 12/16/2022 Influenza Quadrivalent, with preservative (Fluzone; Afluria) 6mo and older 12/18/2015,11/28/2014 Influenza Split 11/07/2011 Influenza trivalent, with pr eservative (Fluzone; Afluria) 6mo and older 12/08/2007 MMR, measles mumps and rubel la Live (Priorix; M-M-R II) 12mo and older 12/19/2011,11/21/2011 Tdap Tetanus diptheria acell ular pertussis (Boostrix; Adacel) 7yo and older 12/16/2022,11/10/2011,06/22/2008 Surgical History Surgery Date Site/Laterality Comments GASTRIC BYPASS 09/2004 PROCEDURE: UT GASTRIC RSTCV W/BYP W/SM INT RCNSTJ LIMIT ABSRPJ OTHER SURGICAL HISTORY 2013 PROCEDURE: UT LAPS GASTRIC RESTRICTIVE PROCEDURE PLACE DEVICE; COMMENT: lap banding over existing; lysis of adhesions SECTION PROCEDURE: HISTORICAL ; COMMENT: x2 HAND SURGERY Left PROCEDURE: HISTORICAL HAND SURGERY; COMMENT: skin graft - finger tip of #5 digit cut off TUBAL LIGATION 08/07/2021 Bilateral PROCEDURE: HISTORICAL TUBAL LIGATION Medical History Medical History Date Comments Tachycardia DX:Tachycardia LAURA (obstructive sleep apnea) DX :LAURA (obstructive sleep apnea) History of bariatric surgery 08/16/2007 DX: History of bariatric surgery; COMMENT: 07/2013Gastric banding over existing bypass Depression 06/22/2008 DX:Depression Vitamin B12 deficiency 09/12/2008 DX:Vitami n B12 deficiency Anxiety 10/13/2017 DX:Anxiety Severe obesity (BMI 35.0-39.9) 08/31/2017 D X:Severe obesity (BMI 35.0-39.9) Iron deficiency anemia 03/15/2018 DX:Iron d eficiency anemia Family History Medical History Relation Name Comments No Known Problems Daughter Diabetes Father hypertension No Known Problems Maternal Grandfather Coronary artery disease Maternal Grandmother Diabetes Mother hypertension, c olon polyps (more than 10 at age 45) Prostate cancer Mother's side uncle No Known Problems Other No Known Problems Paternal Grandfather No Known Problems Paternal Grandmother No Known Problems Sister Breast cancer Neg Hx Colon cancer Neg Hx Ovarian cancer Neg Hx Uterine cancer Neg Hx Relation Name Status Comments Daughter Father Maternal Grandfather Maternal Grandmother Mother Mother's side Other Paternal Grandfather Paternal Grandmother Sister Social History Tobacco Use Types Packs/Day Years Used Date Smoking Tobacco: Former Cigarettes Q uit: 06/07/2007 Smokeless Tobacco: Never Alcohol Use Standard Drinks/Week Comments No 0 (1 standard drink = 0.6 oz pur e alcohol) Comments Unknown Sex and Gender Information Value Date Recorded Sex Assigned at Not on file Legal Sex Female 2:16 AM EST Gender Identity Not on file Sexual Orientation Not on file Obstetrics History Para Term AB IAB SAB Ectopic Multiple Livin g Live Births 2 2 2 2 Date Outcome GA Total Labor Labor/2nd/3rd Weight Sex Type Anes PTL Katherine A1 A5 Name Clin Term Term Last Filed Vital Signs Vital Sign Reading Time Taken Comments Blood Pressure 121/75 08/02/2024 10:06 AM EDT Pulse 80 08/02/2024 10:06 AM EDT Temperature 36.6 C (97.8 F) 08/02/2024 10:06 AM EDT Respiratory Rate - - Oxygen Saturation - - Inhaled Oxygen Concentration - - Weight 90.3 kg (199 lb) 08/02/2024 10:06 AM EDT Height 165.1 cm (5' 5 ) 08/02/2024 10:06 AM EDT Body Mass Index 33.12 08/02/2024 10:06 AM EDT Plan of Treatment Upcoming Encounters Date Type Department Care Team (Late st Contact Info) Description 12/19/2024 3:30 PM EDT Appointment [facility] MRI [address] [place] [phone] 02/07/2025 9:15 AM EST Office Visit Bariatric Surgery - [place] [address] [facility] [address] [place] [phone] Diamond Li MD [address] [place] [phone] Health Maintenance Due Date Last Done Comments Colorectal Cancer Screening: Colonoscopy 1977 Hepatitis C Screening 01/26/2022 Medicare Annual Wellness Visit 01/26/2022 Social Influencers of Health Screening 01/26/2022 Depression Screening 02/24/2024 COVID-19 Vaccine ( season) 2024 12/24/2020, 04/16/2020, 03/25/2020 Influenza Vaccine (#1) 2024 , 12/18/2015, 11/28/2014, Additional history exists Hypertension/CHF/CAD Annual BMP Blood Test 12/06/2024 12/07/2023, 12/07/2023 Breast Cancer Screening 12/28/2025 12/29/19, 12/24/2022, 09/07/2019, Additional history exists Cholesterol Screening (Lipid Panel) 11/18/2027 11/17/2022, 02/08/2001 Cervical Cancer Screening: HPV 06/04/2028 06/05/2023 DTaP,Tdap,and Td Vaccines (4 - Td or Tdap) 12/16/2032 12/16/2022, 11/10/2011, 06/22/2008 RSV Immunization Adult Patients (1 - 1-dose 75+ series) 2052 HIV Screening Completed 06/09/2007 MMR Vaccines Aged Out 12/19/2011, 11/21/2011 No lo nger eligible based on patient's age to complete this topic Hepatitis B Vaccines Completed 06/04/2012, 12/19/2011, 11/10/2011 [...] patient's age to complete this topic Meningococcal ACWY Vaccine Aged Out N o longer eligible based on patient's age to complete this topic Meningococcal B Vaccine Aged Out No l onger eligible based on patient's age to complete this topic Pneumococcal Vaccine: Pediatrics (0 to 5 Years) and At-Risk Patients (6 to 49 Years) Aged Out No longer eligible based on patient's age to complete this topic RSV Immunization Patients Under 20 months Aged Out No longer eligible based on patient's age to complete this topic Varicella Vaccines Aged Out No longer eligible based on patient's age to complete this topic Procedures Procedure Name Priority Date/Time Associated Diagnosis Comments MG MAMMO DIGITAL SCREENING W ADRIÁN BILAT Routine 12/29/2023 3:43 PM EST Encounter for screening mammogram for breast cancer ANNUAL BMP BLOOD TEST Routine 12/07/2023 HPV Routine 06/05/2023 HIV SCREENING Routine 06/09/2007 LIPID PANEL Routine 02/08/2001 from Last 3 Months or Most Recently Relevant to Health Maintenance Results * MG Mammo Digital Screening w Adrián bilat (12/29/2023 3:43 PM EST) Anatomical Region Laterality Modality Breast Bilateral Mammography 12/30/2023 4:02 PM EST Impressions 12/30/2023 6:34 PM EST BILATERAL BREASTS: Negative, no evidence of malignancy. Normal interval follow- up is recommended in 12 months. BREAST DENSITY: B - There are scattered areas of fibroglandular density. BI-RADS CATEGORY: 1 - NEGATIVE RECOMMENDATION: Screening bilateral mammogram is recommended in 1 year. Mammo Location: [facility], [address] [place] [address], [address], . -------- FINAL REPORT -------- Dictated By: Jason Vizcaino Dictated Date: 12/30/2023 16:02 ET Assigned Physician: Jason Vizcaino Reviewed and Electronically Signed By: Jason Vizcaino Signed Date: 12/30/2023 18:34 ET Workstation ID: [id number] Transcribed By: Self Edit Transcribed Date: 12/30/2023 16:16 ET Narrative 12/30/2023 6:34 PM EST STUDY: Bilateral screening mammography with tomosynthesis and CAD TECHNIQUE: Bilateral full-field digital screening mammography is obtained and read in conjunction with computer-aided detection. Tomosynthesis as well as 2-D C view imaging were obtained. COMPARISON: Comparison made to multiple prior, most recent December 24, 2022, and most remote May 18, 2018. BILATERAL BREASTS: No significant masses, suspicious calcifications or other abnormalities are seen. Procedure Note Jason Vizcaino MD - 12/30/2023 STUDY: Bilateral screening mammography with tomosynthesis and CAD TECHNIQUE: Bilateral full-field digital screening mammography is obtainedand read in conjunction with computer-aided detection. Tomosynthesis aswell as 2-D C view imaging were obtained. COMPARISON: Comparison made to multiple prior, most recent November 1,2023, and most remote May 18, 2018. BILATERAL BREASTS: No significant masses, suspicious calcifications orother abnormalities are seen. IMPRESSION: BILATERAL BREASTS: Negative, no evidence of malignancy. Normal intervalfollow-up is recommended in 12 months. BREAST DENSITY: B - There are scattered areas of fibroglandular density. BI-RADS CATEGORY: 1 - NEGATIVE RECOMMENDATION: Screening bilateral mammogram is recommended in 1 year. Mammo Location: [facility], [address] [place] [address], [address], . -------- FINAL REPORT -------- Dictated By: Jason Vizcaino Dictated Date: 12/30/2023 16:02 ET Assigned Physician: Jason Vizcaino Reviewed and Electronically Signed By: Jason Vizcaino Signed Date: 12/30/2023 18:34 ET Workstation ID: [id number] Transcribed By: Self Edit Transcribed Date: 12/30/2023 16:16 ET Tutu Moore MD IMG BI PROCEDURES Final R esult * Annual BMP Blood Test (12/07/2023) [facility] Annual BMP Blood Test abstracted [facility] Provider HEALTH MAINTENANCE Final Result * Cervical Cancer Screening: HPV (06/05/2023) [facility] Cervical Cancer Screening: HPV abstracted, negative Result [facility] Provider HEALTH MAINTENANCE Final Result * HIV Screening (06/09/2007) [facility] HIV Screening abstracted Result [facility] Provider HEALTH MAINTENANCE Final Result * Lipid panel (02/08/2001) [facility] LDL/HDL Ratio 2 1 - 4 Triglycerides 131 10 - 140 mg/dL Cholesterol 165 10 - 200 mg/dL HDL 76 32 - 96 mg/dL LDL Cholesterol 63 62 - 185 mg/dL Blood Venous blood specimen / Unknown us Historical Provider LAB BLOOD ORDERABLES Dee l Result from Last 3 Months or Most Recently Relevant to Health Maintenance Insurance [facility] MEDICARE Care Teams Principal Technologist Relationship Specialty Start Date End Date Tutu Moore MD [address] [place] [address] PCP - General 09/17/10
--- OUTSIDE RECORDS SUMMARY | 2024-12-19 14:19 | XMS_ITS | Encounter Summary ---
Author Organization [employer] Address [address] [facility] 7[address] [place] [address] Care Team Providers Care Cotton Candy Maker Name Role Phone Tutu Moore MD Primary Care Provider [phone] Encounter Details Date Type Department Care Team ([facility] st Contact Info) Description 10/15/[address] [facility] [address] [place] [address] Tutu Moore MD [address] [place] [address] Obesity (BMI 30-39.9) Social History Tobacco Use [...] Description 12/26/2024 9:00 AM EST Office Visit [facility] MED & PEDS [address] [place] [address] Tutu Moore MD [address] [place] [address] documented as of this encounter Visit Diagnoses Diagnosis Obesity (BMI 30-39.9) documented in this encounter Additional Health Concerns Assessment Noted Time PHQ-9 Depression Total Score: 0 06/07/19 23 1:57 PM EDT documented as of this encounter Care Teams Cotton Candy Maker Relationship Specialty Start Date End Date Tutu Moore MD [address] [place] [address] PCP - General Internal Medicine 02/23/18 documented as of this encounter
--- OUTSIDE RECORDS SUMMARY | 2024-12-19 14:20 | XMS_ITS | Encounter Summary ---
Author Organization [employer] Address 75 [facility] 7 [place] [address] Care Team Providers Care Municipal Services Manager Name Role Phone Tutu Moore MD Primary Care Provider [phone] Reason for Visit * Reason Onset Date Comments Call Back Request 07/06/2023 Encounter Details Date Type Department Care Team ([facility] st Contact Info) Description 07/06/2023 Telephone [facility] [address] [place] [address] Tutu Moore MD [address] [place] [address] Call Back Request Social History Tobacco Use [...] encounter Miscellaneous Notes * Telephone Encounter - Bhavya Serra RN - 07/06/2023 3:58 PM EDT Returned call to pt regarding message below. Pt informed that Nifedipine is to replace amlodipine and the Vesicare is to replace the oxybutynin. Pt verbalized understanding and agrees with plan. * Telephone Encounter - Venice Lima - 07/06/2023 11:01 AM EDT Tc from pt requesting a call back stated pharmacy told her one of this 2 medications are the replacement for amlodipine but she is not sure which one... NIFEdipine CC (Adalat CC) 30 MG 24 hr tablet solifenacin (VESIcare) 10 MG table documented in this encounter Plan of Treatment Upcoming Encounters Date Type Department Care Team (Late st Contact Info) Description 12/26/2024 9:00 AM EST Office Visit [facility] [address] [place] [address] Tutu Moore MD [address] [place] [address] documented as of this encounter Visit Diagnoses Not on filedocumented in this encounter Additional Health Concerns Assessment Noted Time PHQ-9 Depression Total Score: 0 06/07/19 23 1:57 PM EDT documented as of this encounter Care Teams Municipal Services Manager Relationship Specialty Start Date End Date Tutu Moore MD [address] [place] [address] PCP - General Internal Medicine 02/23/18 documented as of this encounter
[2024-12-19 15:12] LABS: Anion Gap 11 (12-20); Blood Urea Nitrogen 11 mg/dL (9-16); Calcium 8.7 mg/dL (8.4-10.2); Carbon Dioxide 23 mmol/L (22-29); Chloride 99 mmol/L (96-108); Estimated Glomerular Filt Rate > 60; Potassium 4.3 mmol/L (3.3-5.1); Sodium 129 mmol/L (135-145)
== END 2024-12-19 11:13 | disposition home or self-care (01) ==
LOC: HO.CHCLDS 11:12
PROVIDERS: Visit Provider Internal Medicine
DX: E87.1 Hypo-osmolality and hyponatremia (principal)
CPT/HCPCS: 36415; 80048

== ENCOUNTER 2024-12-23 08:57 | Outpatient (REF) | payer MEDICAID, SELFPAY ==
--- OUTSIDE RECORDS SUMMARY | 2024-12-19 10:15 | XMS_ITS | Encounter Summary ---
Author Organization [employer] Address [address] [facility] 7t [place] [address] Care Team Providers Care Plate Fitter Name Role Phone Tutu Moore MD Primary Care Provider [phone] Reason for Referral * Consultation (Routine) - Closed Specialty Diagnoses / Procedures Referred By Contgertrudis t Referred To Contact Gastroenterology Diagnoses Epigastric pain Tutu Moore MD [address] [place] [address] Phone: tel: fax: [facility] [address] [place], [place] Phone: tel: fax: Referral ID Status Reason Start Date Expiration Date V isits Requested Visits Authorized [id number] Closed Specialty Services Required 12/19/2024 12/19/2025 1 1 Reason for Visit * Reason Comments ER Follow-up Encounter Details Date Type Department Care Team (Late st Contact Info) Description 12/19/2024 10:15 AM EDT Office Visit [facility] MED & PEDS [address] [place], [place] [phone] Tutu Moore MD [address] [place] [address] Hyponatremia (Primary Dx); Epigastric pain; Essential hypertension Social History Tobacco Use Types Packs/Day Years Used Date Smoking Tobacco: Never Smokeless Tobacco: Never Alcohol Use Standard Drinks/Week Comments Never 0 (1 standard drink = 0.6 oz pur e alcohol) Alcohol Answer Date Recorded How often do you have a drink containing alcohol ? 1 04/15/2024 How many drinks containing a lcohol do you have on a typical day when you are drinking? 0 04/15/2024 How often do you have six or more drinks on one occasion? 0 04/15/2024 Depression Answer Date Recorded Patient Health Questionnaire-9 Score 14 12/19/2024 Patient Health Questionnaire-9 Score 14 12/19/2024 Last PHQ-9: Questionnaire Data Not on file 1 Housing Stability Answer Date Recorded What is your housing situation today? I have lucy torres 12/08/[address] you li ve. Do you have problems with any of the following? None of the above 12/08/2022 Food Insecurity Answer Date Recorded Within the past 12 months, y ou worried that your food would run out before you got money to buy more: Never True 12/08/2022 Within the past 12 months,th e food you bought just didn't last and you didn't have enough money to get more: Never True Transportation Answer Date Recorded In the past 12 months, has l ack of transportation kept you from medical appts, meetings, work or from getting things needed for daily living? No 12/08/2022 Utilities Answer Date Recorded In the past 12 months, has t he electric, gas, oil or water company threatened to shut off services in your home? No 12/08/2022 Depression Answer Date Recorded Patient Health Questionnaire-2 Score 2 12/19/2024 Internet Access Answer Date Recorded Internet Access Q1 Yes 04/15/2024 Internet Access Q2 Not on file 04/15/2024 Comments Unknown Sex and Gender Information Value Date Recorded Sex Assigned at Female 12/23/2021 10:14 AM EDT Legal Sex Female 10:14 AM EDT Gender Identity Female 12/23/2021 10:14 AM EDT Sexual Orientation Straight 12/23/2021 10 :14 AM EDT documented as of this encounter Last Filed Vital Signs Vital Sign Reading Time Taken Comments Blood Pressure 111/63 12/19/2024 10:33 AM EDT Pulse 99 12/19/2024 10:33 AM EDT Temperature - - Respiratory Rate 20 12/19/2024 10:33 AM EDT Oxygen Saturation 99% 12/19/2024 10:33 AM EDT Inhaled Oxygen Concentration - - Weight 86.6 kg (191 lb) 12/19/2024 10:33 AM EDT Height 163.8 cm (5' 4.5 ) 12/19/2024 10:33 AM ED T Body Mass Index 32.28 12/19/2024 10:33 AM EDT documented in this encounter Functional Status * Over the past 2 weeks, how often have you been bothered by any of the following problems? Question Answer Date of Assessment Author Patient Health Questionnaire -2 Score 2 12/19/2024 11:09 AM EDT Edith Haynes MA * Little interest or pleasure in doing things Answer Date of Assessment Author Several days 12/19/2024 11:09 AM Beata Shaffer MA * Feeling down, depressed, or hopeless Answer Date of Assessment Author Several days 12/19/2024 11:09 AM Beata Shaffer MA * Trouble falling or staying asleep, or sleeping too much Answer Date of Assessment Author Nearly every day 12/19/2024 11:09 AM Beata Núñez MA * Feeling tired or having little energy Answer Date of Assessment Author Nearly every day 12/19/2024 11:09 AM Beata Núñez MA * Poor appetite or overeating Answer Date of Assessment Author Nearly every day 12/19/2024 11:09 AM Beata Núñez MA * Feeling bad about yourself - or that you are a failure or have let yourself or your family down Answer Date of Assessment Author Not at all 12/19/2024 11:09 AM Beata Shaffer MA * Trouble concentrating on things, such as reading the newspaper or watching television Answer Date of Assessment Author Nearly every day 12/19/2024 11:09 AM Beata Núñez MA * Moving or speaking so slowly that other people could have noticed? Or the opposite - being so fidgety or restless that you have been moving around a lot more than usual. Answer Date of Assessment Author Not at all 12/19/2024 11:09 AM EDT Beata Ac MA * Thoughts that you would be better off or hurting yourself in some way Answer Date of Assessment Author Not at all 12/19/2024 11:09 AM EDT Beata Ac MA * Patient Health Questionnaire-9 Score Answer Date of Assessment Author 14 12/19/2024 11:09 AM EDT Beata Ac MA documented as of this encounter Progress Notes * Tutu Moore MD - 12/19/2024 10:15 AM EDT SUBJECTIVE Ajit Pena is a 49 y.o. female who presents for ER Follow-up. Ajit Pena, 49-year-old female - Onset of severe headache and inability to eat prior to December 12, 2024 - ER visit on December 13, 2024 for headache and inability to eat; found to have low sodium (hyponatremia), received IV fluids, steroids, and Benadryl, with transient improvement in symptoms - Persistent headache and difficulty swallowing since ER visit; describes pain on swallowing, sensation of food or pills getting stuck, and prolonged time to eat or drink - Reports feeling very thirsty for several weeks prior to encounter, drinking excessive water - No bowel movements due to poor oral intake - Denies allergy symptoms or sensation in the back of throat - No weight loss despite poor oral intake - History of taking ibuprofen, omeprazole, bupropion, clonazepam, clonidine, Tylenol, meclizine (not currently), nifedipine, ondansetron (as needed), Wegovy (not used when sick), Lipitor, Effexor (dose increased recently, Wellbutrin dose lowered), temazepam for sleep - Family history of aunt diagnosed with lung and brain cancer ER Follow-up Associated symptoms include fatigue and nausea. Pertinent negatives include no chills, coughing, diaphoresis or fever. Problem List[1] Allergies[2] Medications Ordered Prior to Encounter[3] Review of Systems Constitutional: Positive for fatigue. Negative for appetite change, chills, diaphoresis and fever. HENT: Negative for ear pain, facial swelling and hearing loss. Eyes: Negative for photophobia, pain and redness. Respiratory: Negative for cough, choking and shortness of breath. Cardiovascular: Negative for leg swelling. Gastrointestinal: Positive for nausea. Negative for anal bleeding, blood in stool and constipation. Odynophagia Musculoskeletal: Negative for gait problem. OBJECTIVE Vitals: 12/19/24 1033 BP: 111/63 BP Location: Left arm Patient Position: Sitting BP Cuff Size: Adult Pulse: 99 Resp: 20 SpO2: 99% Weight: 191 lb (86.6 kg) Height: 5' 4.5 (1.638 m) Physical Exam Constitutional: General: She is not in acute distress. Appearance: She is ill-appearing. She is not toxic-appearing or diaphoretic. Pulmonary: Effort: Pulmonary effort is normal. Breath sounds: No stridor. Abdominal: Palpations: Abdomen is soft. Musculoskeletal: Cervical back: Normal range of motion. Neurological: General: No focal deficit present. Mental Status: She is alert. Psychiatric: Mood and Affect: Mood normal. Assessment/Plan Assessment/Plan Diagnoses and all orders for this visit: Hyponatremia - Basic Metabolic Panel; Future Epigastric pain - Referral to Gastroenterology; Future - sucralfate (Carafate) 1 g tablet; Take 1 tablet (1 g) by mouth before breakfast, before lunch, before evening meal, and at bedtime. Essential hypertension Comments: BP is at target no change Hyponatremia: - Hyponatremia identified as cause of symptoms, including headache and weakness. Possible viral syndrome considered as contributing factor. - Ordered blood test to check sodium and potassium levels before leaving. Recommended limiting fluid intake to no more than 2 liters per day. Advised to consume a spoon of sugar to add to her fluids if unable to eat. Excuse from work provided from December 19, 2024 to December 27, 2024. Follow-up appointment scheduled for next Thursday to reassess recovery. Epigastric pain and dysphagia: - Epigastric pain and dysphagia possibly due to pill-induced esophagitis or medication side effect.Inflammation of lower esophagus suspected. No evidence of mass on imaging. - Referred to gastroenterology for upper endoscopy. Advised to discontinue ibuprofen. Recommended avoiding irritants such as coffee, citrus, and carbonated beverages. Advised to swallow pills with sufficient water and avoid lying down when taking medication. Prescribed coating agent for esophageal protection. Hold off on [employer] for now. The letter for work was provided. This note was drafted using [employer] (AI) technology. The patient/patient's guardian has been informed and has consented to the use of this technology: Yes [1] Patient Active Problem List Diagnosis Essential hypertension Depressive disorder Headache Cobalamin deficiency Insomnia Stress incontinence Vitamin D deficiency Anxiety Paroxysmal supraventricular tachycardia (CMS/HCC) [2] No Known Allergies [3] Current Outpatient Medications on File Prior to Visit Medication Sig Dispense Refill albuterol 108 (90 Base) MCG/ACT inhaler USE 1-2 PUFFS EVERY 6 HOURS NEEDED FOR COUGH 18 g 11 buPROPion XL (Wellbutrin XL) 150 MG 24 hr tablet Take 150 mg by mouth in the morning. clobetasol (Temovate) 0.05 % ointment Apply topically 2 times daily. 90 g 0 clonazePAM (KlonoPIN) 1 MG tablet TAKE ONE (1) TABLET BY MOUTH TWICE A DAY FOR ANXIETY cloNIDine (Catapres) 0.1 MG tablet Take 0.1 mg by mouth if needed in the morning and at bedtime. Cyanocobalamin (B-12) [address] 1 tablet under the tongue in the morning. Diclofenac Sodium 1 % gel APPLY 2 GRAMS TO AFFECTED AREA TWICE A DAY 100 g 2 diphenhydrAMINE (BENADryl) 25 MG tablet Take 1 tablet (25 mg) by mouth if needed at bedtime (cough)for up to 15 days. 15 tablet 0 ibuprofen 800 MG tablet Take 1 tablet (800 mg) by mouth every 8 (eight) hours if needed for mild pain, fever, moderate pain or headaches. 45 tablet 1 meclizine (Antivert) 25 MG tablet Take 1 tablet (25 mg) by mouth if needed in the morning, at noon,in the evening, and at bedtime for dizziness or nausea. 30 tablet 1 [] meclizine (Antivert) 25 MG tablet Take 1 tablet (25 mg) by mouth if needed in the morning, at noon, and at bedtime for dizziness for up to 10 days. 30 tablet 0 NIFEdipine CC (Adalat CC) 30 MG 24 hr tablet TAKE 1 TABLET (30 MG) BY MOUTH BEFORE BREAKFAST. 90 tablet 3 omeprazole (PriLOSEC) [address] capsule TAKE 1 CAPSULE BY MOUTH TWICE A DAY 180 capsule 1 ondansetron (Zofran) 4 MG tablet Take 1 tablet (4 mg) by mouth every 8 (eight) hours if needed for nausea or vomiting for up to 20 doses. 10 tablet 1 [] ondansetron (Zofran) 4 MG tablet Take 1 tablet (4 mg) by mouth every 8 (eight) hours if needed for nausea or vomiting for up to 7 days. 20 tablet 0 OXcarbazepine (Trileptal) 600 MG tablet Take 600 mg by mouth 2 times daily. propranolol (Inderal) 40 MG tablet TAKE 1 TABLET BY MOUTH TWICE DAILY. 180 tablet 1 QUEtiapine (SEROquel) 100 MG tablet Take 100 mg by mouth at bedtime. solifenacin (VESIcare) 10 MG tablet TAKE 1 TABLET BY MOUTH EVERY DAY IN THE MORNING 90 tablet 3 temazepam (Restoril) 30 MG capsule TAKE ONE CAPSULE BY MOUTH AT BEDTIME NEEDED FOR SLEEP Wegovy 2.4 MG/0.75ML solution auto-injector Inject 2.4 mg under the skin every 7 (seven) days. No current facility-administered medications on file prior to visit. documented in this encounter Plan of Treatment Upcoming Encounters Date Type Department Care Team (Late st Contact Info) Description 12/26/2024 9:00 AM EST Office Visit [facility] MED & PEDS [address], [place] [phone] Tutu Moore MD [address] [place] [address] Scheduled Referrals Name Type Priority Associated Diagnoses Order Schedule Referral to Gastroenterology Outpatient Referral Routine Epigastric pain Expected: 12/19/2024 (Approximate), Expires: 12/19/2025 documented as of this encounter Procedures Procedure Name Priority Date/Time Associated Diagnosis Comments BASIC METABOLIC PANEL Routine 12/19/2024 11:15 AM EDT Hyponatremia documented in this encounter Results * (ABNORMAL) Basic Metabolic Panel (12/19/2024 11:15 AM EDT) Sodium 129(L) 135 - 145 mmol/L [facility] Potassium 4.3 3.3 - 5.1 mmol/L [facility] Chloride 99 96 - 108 mmol/L [facility] Carbon Dioxide 23 22 - 29 mmol/L [facility] Anion Gap 11(L) 12 - 20 [facility] Urea Nitrogen (BUN) 11 9 - 16 mg/dL [facility] Creatinine, Serum 0.57 0.5 - 1.4 mg/dL [facility] Estimated Glomerular Filt Rate >60 [facility] Comment:Chronic Kidney Disea se: Estimated GFR < 60 mL/min/1.51v6Tatfnw Kidney Disease: Estimated GFR < 15 mL/min/1.73m2 Glucose 87 60 - 115 mg/dL [facility] Calcium 8.7 8.4 - 10.2 mg/dL [facility] Blood Venous blood specimen / Unknown 12/19/2024 11:15 AM EDT 12/19/2024 2:00 PM EDT Tutu Moore MD LAB BLOOD ORDERABLES Final Result Performing Organization Address City/State/[facility] Co de Phone Number [facility] [address] [place] [address] [phone] documented in this encounter Visit Diagnoses Diagnosis Hyponatremia- Primary Hyposmolality and/or hyponatremia Epigastric pain Abdominal pain, epigastric Essential hypertension Unspecified essential hypertension documented in this encounter Additional Health Concerns Assessment Noted Time PHQ-9 Depression Total Score: 14 025 11:09 AM EDT documented as of this encounter Care Teams Plate Fitter Relationship Specialty Start Date End Date Tutu Moore MD [address] [place] [address] PCP - General Internal Medicine 02/23/18 documented as of this encounter
--- OUTSIDE RECORDS SUMMARY | 2024-12-23 09:33 | XMS_ITS | Encounter Summary ---
Author Organization [employer] Address 75 [facility] 7 [place] [address] Care Team Providers Care Pm Technician Name Role Phone Tutu Moore MD Primary Care Provider [phone] Encounter Details Date Type Department Care Team ([facility] st Contact Info) Description 10/21/2023 Orders Only [facility] [address] [place], [place] [phone] Tutu Moore MD [address] [place] [address] Obesity (BMI 30-39.9) Social History Tobacco Use [...] Description 12/26/2024 9:00 AM EST Office Visit [facility] [address] [place] [address] Tutu Moore MD [address] [place] [address] documented as of this encounter Visit Diagnoses Diagnosis Obesity (BMI 30-39.9) documented in this encounter Additional Health Concerns Assessment Noted Time PHQ-9 Depression Total Score: 0 06/07/19 23 1:57 PM EDT documented as of this encounter Care Teams Pm Technician Relationship Specialty Start Date End Date Tutu Moore MD [address] [place] [address] PCP - General Internal Medicine 02/23/18 documented as of this encounter
--- OUTSIDE RECORDS SUMMARY | 2024-12-23 09:33 | XMS_ITS | Encounter Summary ---
Author Organization [employer] Address 75 [facility] 7 [place] [address] Care Team Providers Care Geospatial Intelligence Analyst Name Role Phone Tutu Moore MD Primary Care Provider [phone] Encounter Details Date Type Department Care Team ([facility] st Contact Info) Description 12/19/2024 Orders Only [facility] MED & PEDS [address] [place], [place] [phone] Tutu Moore MD [address] [place] [address] Hyponatremia (Primary Dx) Social History Tobacco Use Types [...] Assessment Author Several days 12/19/2024 11:09 AM EDT Beata Ac [place] * Feeling down, depressed, or hopeless Answer Date of Assessment Author Several days 12/19/2024 11:09 AM JOHNNYT Beata Ac [place] * Trouble falling or staying asleep, or sleeping too much Answer Date of Assessment Author Nearly every day 12/19/2024 11:09 AM JOHNNYT Beata Parra [place] * Feeling tired or having little energy Answer Date of Assessment Author Nearly every day 12/19/2024 11:09 AM EDT Beata Parra [place] * Poor appetite or overeating Answer Date of Assessment Author Nearly every day 12/19/2024 11:09 AM JOHNNYT Beata Parra [place] * Feeling bad about yourself - or that you are a failure or have let yourself or your family down Answer Date of Assessment Author Not at all 12/19/2024 11:09 AM EDT Beata Ac [place] * Trouble concentrating on things, such [...] 12/19/2024 11:09 AM Beata Shaffer [place] * Patient Health Questionnaire-9 Score Answer Date of Assessment Author 14 12/19/2024 11:09 AM Beata Shaffer [place] documented as of this encounter Plan of Treatment Upcoming Encounters Date Type Department Care Team (Late st Contact Info) Description 12/26/2024 9:00 AM EST Office Visit [facility] MED & PEDS [address] [place] [address] Tutu Moore MD [address] [place] [address] Scheduled Orders Name Type Priority Associated Diagnoses Orde r Schedule Sodium Without creatinine, Random Urine Lab Routine Hyponatremia Expected: 12/19/2024, Expires: 12/19/2025 Osmolality, Serum Lab Routine Hyponatremia Expected: 12/19/2024 (Approximate), Expires: 12/19/2025 Osmolality, Urine Lab Routine Hyponatremia Expected: 12/19/2024 (Approximate), Expires: 12/19/2025 TSH W/Reflex to FT4 Lab Routine Hyponatremia Expected: 12/19/2024 (Approximate), Expires: 12/19/2025 documented as of this encounter Visit Diagnoses Diagnosis Hyponatremia- Primary Hyposmolality and/or hyponatremia documented in this encounter Additional Health Concerns Assessment Noted Time PHQ-9 Depression Total Score: 14 025 11:09 AM EDT documented as of this encounter Care Teams Geospatial Intelligence Analyst Relationship Specialty Start Date End Date Tutu Moore MD [address] [place] [id number] PCP - General Internal Medicine 02/23/18 documented as of this encounter
--- OUTSIDE RECORDS SUMMARY | 2024-12-23 09:33 | XMS_ITS | Encounter Summary ---
Author Organization [employer] Address 75 [facility] 7t [place] [address] Care Team Providers Care University Archivist Name Role Phone Tutu Moore MD Primary Care Provider [phone] Encounter Details Date Type Department Care Team ([facility] st Contact Info) Description 12/08/2022 Orders Only [facility]EDS [address] [place], [place] [phone] Tutu Moore MD [address] [place] [address] Screening for tuberculosis (Primary Dx) Social History [...] [facility] [address] [place], [place] [phone] Tutu Moore MD [address] [place] [address] documented as of this encounter Procedures Procedure Name Priority Date/Time Associated Diagnosis Comments T-SPOT(R).TB Routine 12/16/2022 1:28 PM EDT Screening for tuberculosis documented in this encounter Results * T-SPOT??.TB (12/16/2022 1:28 PM EDT) [facility] T Spot TB Negative Negative [facility] Comment:A negative test resu lt does [...] as aquantitative test. TS PANEL A 0 [facility] TS PANEL B 0 [facility] Negative Control Passed [facility] Positive Control Passed [facility] Comment:For additional infor diana, please refer tohttp://education.Treato/faq/LEU929(This link is being provided for informational/educational purposes only.)THIS TEST WAS PERFORMED AT:[employer] [id number] [place] [id number] Piper ZENG MD,PHD 12/16/2022 1:28 PM EDT 12/16/2022 2:25 PM EDT us Tutu Moore MD LAB BLOOD ORDERABLES Final Result [facility] [address] [place] [address] [phone] documented in this encounter Visit Diagnoses Diagnosis Screening for tuberculosis- Primary Screening examination for pulmonary tuberculosis documented in this encounter Additional Health Concerns Assessment Noted Time PHQ-9 Depression Total Score: 0 06/07/19 23 1:57 PM EDT documented as of this encounter Care Teams University Archivist Relationship Specialty Start Date End Date Tutu Moore MD [address] [place] [address] PCP - General Internal Medicine 02/23/18 documented as of this encounter
--- OUTSIDE RECORDS SUMMARY | 2024-12-23 09:33 | XMS_ITS | Encounter Summary ---
Author Organization [employer] Address [address] [place] [address] Care Team Providers Care Developmental Training Counselor Name Role Phone Tutu Moore MD Primary Care Provider [phone] Reason for Visit * Reason Comments Med Change Request Encounter Details Date Type Department Care Team (Late Contact Info) Description 05/14/2022 Refill [facility]EDS [address] [place] [address] Quin Rapp MD [address] [place] [address] Atopic dermatitis, unspecified type Social History Tobacco [...] Description 12/26/2024 9:00 AM EST Office Visit [facility]ED[facility] [address] [place] [address] Tutu Moore MD [address] [place] [address] documented as of this encounter Visit Diagnoses Diagnosis Atopic dermatitis, unspecified type documented in this encounter Care Teams Developmental Training Counselor Relationship Specialty Start Date End Date Tutu Moore MD [address] [place] [address] PCP - General Internal Medicine 02/23/18 documented as of this encounter
--- OUTSIDE RECORDS SUMMARY | 2024-12-23 09:33 | XMS_ITS | Encounter Summary ---
Author Organization [employer] Address [address] [place] [address] Care Team Providers Care Management Rep Name Role Phone Tutu Moore MD Primary Care Provider [phone] Reason for Visit * Reason Comments Med Refill Encounter Details Date Type Department Care Team (Late Contact Info) Description 11/01/2022 Refill [facility] [address] [place], [place] [phone] Quin Rapp MD [address] [place] [address] Hypertension, unspecified type Social History Tobacco Use [...] Description 12/26/2024 9:00 AM EST Office Visit [facility] MED [facility] PEDS [address] [place], [place] [phone] Tutu Moore MD [address] [place], [place] [phone] documented as of this encounter Visit Diagnoses Diagnosis Hypertension, unspecified type documented in this encounter Additional Health Concerns Assessment Noted Time PHQ-9 Depression Total Score: 0 06/07/19 23 1:57 PM EDT documented as of this encounter Care Teams Management Rep Relationship Specialty Start Date End Date Tutu Moore MD [address] [place] [address] PCP - General Internal Medicine 02/23/18 documented as of this encounter
--- OUTSIDE RECORDS SUMMARY | 2024-12-23 09:33 | XMS_ITS | Encounter Summary ---
Author Organization [employer] Address [address] [facility] [address] 7t [place] [address] Care Team Providers Care Sap Administrator Name Role Phone Tutu Moore MD Primary Care Provider [phone] Encounter Details Date Type Department Care Team [...] Description 12/26/2024 9:00 AM EST Office Visit [facility] MED & PEDS [address] [place] [address] Tutu Moore MD [address] [place] [address] documented as of this encounter Visit Diagnoses Not on filedocumented in this encounter Additional Health Concerns Assessment Noted Time PHQ-9 Depression Total Score: 14 025 11:09 AM EDT documented as of this encounter Care Teams Sap Administrator Relationship Specialty Start Date End Date Tutu Moore MD [address] [place] [address] PCP - General Internal Medicine 02/23/18 documented as of this encounter
--- OUTSIDE RECORDS SUMMARY | 2024-12-23 09:33 | XMS_ITS | Encounter Summary ---
Author Organization [employer] Address 75 [facility] 7t [place] [address] Care Team Providers Care Peoplesoft Analyst Name Role Phone Tutu Moore MD Primary Care Provider [phone] Encounter Details Date Type Department Care Team ([facility] st Contact Info) Description 10/15/2023 Orders Only [facility] [address] [place] [address] Tutu Moore MD [address] [place] [address] Obesity (BMI 30-39.9) Social History Tobacco Use [...] Description 12/26/2024 9:00 AM EST Office Visit [facility] MED [facility] PEDS [address] [place] [address] Ttuu Moore MD [address] [place] [address] documented as of this encounter Visit Diagnoses Diagnosis Obesity (BMI 30-39.9) documented in this encounter Additional Health Concerns Assessment Noted Time PHQ-9 Depression Total Score: 0 06/07/19 23 1:57 PM EDT documented as of this encounter Care Teams Peoplesoft Analyst Relationship Specialty Start Date End Date Tutu Moore MD [address] [place] [address] PCP - General Internal Medicine 02/23/18 documented as of this encounter
--- OUTSIDE RECORDS SUMMARY | 2024-12-23 09:33 | XMS_ITS | Encounter Summary ---
Author Organization [employer] Address 75 [facility] 7 [place] [address] Care Team Providers Care Marketing Strategy Manager Name Role Phone Tutu Moore MD Primary Care Provider [phone] Reason for Visit * Reason Comments Med Change Request Encounter Details Date Type Department Care Team ([facility] st Contact Info) Description 04/08/2023 Refill [facility] [address] [place] [address] Tutu Moore MD [address] [place] [address] Stress incontinence (Primary Dx); Hypertension, unspecified type [...] 12/26/2024 9:00 AM EST Office Visit [facility] [address] [place] [address] Tutu Moore MD [address] [place] [address] documented as of this encounter Visit Diagnoses Diagnosis Stress incontinence- Primary Female stress incontinence Hypertension, unspecified type documented in this encounter Additional Health Concerns Assessment Noted Time PHQ-9 Depression Total Score: 0 06/07/19 23 1:57 PM EDT documented as of this encounter Care Teams Marketing Strategy Manager Relationship Specialty Start Date End Date Tutu Moore MD [address] [place] [address] PCP - General Internal Medicine 02/23/18 documented as of this encounter
--- OUTSIDE RECORDS SUMMARY | 2024-12-23 09:33 | XMS_ITS | Encounter Summary ---
Author Organization [employer] Address 75 [facility] 7t [place] [address] Care Team Providers Care Outside Machinist Helper Name Role Phone Tutu Moore MD Primary Care Provider [phone] Encounter Details Date Type Department Care Team ([facility] st Contact Info) Description 11/03/2023 Orders Only [facility] [address] [place] [address] Provider, MD Dakotah Social History Tobacco Use [...] 12/26/2024 9:00 AM EST Office Visit [facility] [address] [place] [address] Tutu Moore MD [address] [place] [address] documented as of this encounter Procedures Procedure [...] documented as of this encounter Care Teams Outside Machinist Helper Relationship Specialty Start Date End Date Tutu Moore MD [address] [place] [address] PCP - General Internal Medicine 02/23/18 documented as of this encounter
--- OUTSIDE RECORDS SUMMARY | 2024-12-23 09:33 | XMS_ITS | Encounter Summary ---
Author Organization [employer] Address 75 [facility] 7t [place] [address] Care Team Providers Care Human Resources Director Name Role Phone Tutu Moore MD Primary Care Provider [phone] Reason for Visit * Reason Onset Date Comments Results 12/20/2024 Encounter Details Date Type Department Care Team ([facility] st Contact Info) Description 12/20/2024 Results Follow-Up [facility]EDS [address] [place] [address] Delores García RN Basic Metabolic Panel Social History Tobacco Use Types Packs/Day Years [...] encounter Miscellaneous Notes * Telephone Encounter - Delores García RN - 12/20/2024 11:06 AM EDT TC to pt to review results and recommendations. Pt states still has pain when swallowing. Author advised of small bites of well chewed food and to tuck chin to chest when swallowing. Advised to contact office if worsens before follow up 12/26/24. Pt verbalized understanding and agreement with plan. * Telephone Encounter - Delores García RN - 12/20/2024 11:05 AM EDT ----- Message from Tutu Moore MD sent at 12/19/2024 4:57 PM EDT ----- Please inform Ms Ajit Pena that she is still hyponatremic. She needs to continue w/ the fluid restriction: 1.5 liter of fluids w/ electrolytes. [place] salt intake. Further work up and repeat BMP Thursday recommended. (? Related to her thyroid, Adrenal insufficiency, ETC). ----- Message ----- From: Interface, Lab Results In Sent: 12/19/2024 3:12 PM EDT To: Tutu Moore MD documented in this encounter Plan of Treatment Upcoming Encounters Date Type Department Care Team ([facility] st Contact Info) Description 12/26/2024 9:00 AM EST Office Visit [facility] MED & PEDS [address] [place] [address] Tutu Moore MD [address] [place] [address] documented as of this encounter Visit Diagnoses Not on filedocumented in this encounter Additional Health Concerns Assessment Noted Time PHQ-9 Depression Total Score: 14 025 11:09 AM EDT documented as of this encounter Care Teams Human Resources Director Relationship Specialty Start Date End Date Tutu Moore MD [address] [place] [address] PCP - General Internal Medicine 02/23/18 documented as of this encounter
--- OUTSIDE RECORDS SUMMARY | 2024-12-23 09:33 | XMS_ITS | Encounter Summary ---
Author Organization [employer] Address [address] [place] [address] Care Team Providers Care Bacon De Rinder Name Role Phone Tutu Moore MD Primary Care Provider [phone] Reason for Visit * Reason Comments Med Refill Encounter Details Date Type Department Care Team (Late Contact Info) Description 11/01/2022 Refill [facility] PEDS [address] [place] [address] Tutu Moore MD [address] [place] [address] Social History Tobacco Use Types Packs/Day Years [...] Description 12/26/2024 9:00 AM EST Office Visit [facility] MED [facility] PEDS [address] [place] [address] Tutu Moore MD [address] [place] [address] documented as of this encounter Visit Diagnoses Not on filedocumented in this encounter Additional Health Concerns Assessment Noted Time PHQ-9 Depression Total Score: 0 06/07/19 23 1:57 PM EDT documented as of this encounter Care Teams Bacon De Rinder Relationship Specialty Start Date End Date Tutu Moore MD [address] [place] [address] PCP - General Internal Medicine 02/23/18 documented as of this encounter
--- OUTSIDE RECORDS SUMMARY | 2024-12-23 09:33 | XMS_ITS | Clinical Summary ---
Author Organization [employer] Address [address] [facility] 7t [place] [address] Care Team Providers Care Metal Burrer Name Role Phone Tutu Moore MD Primary Care Provider [phone] Allergies No known active allergies Medications buPROPion [...] 026 Active cholecalciferol (Vitamin D-3) 1.25 MG (69842 UT) capsule TAKE 1 CAPSULE BY MOUTH [...] Date Diagnosed Date Paroxysmal supraventricular tachycardia 01/19/20 Essential hypertension 12/21/2017 Headache 12/30/2012 Cobalamin deficiency 12/30/2012 Insomnia 12/30/2012 Stress incontinence 12/30/2012 Vitamin D deficiency 12/30/2012 Depressive disorder 10/18/2012 Anxiety 10/18/2012 Encounters Date Type Department Care Team Description 12/20/2024 Results Follow-Up [facility] [address] [place] [address] Delores García RN Basic Metabolic Panel 12/19/2024 10:15 AM EDT Office Visit [facility] [address] [place] [address] Tutu Moore MD Hyponatremia (Primary Dx); Epigastric pain; Essential hypertension 12/19/2024 Orders Only [facility] [address] [place] [address] Tutu Moore MD Hyponatremia (Primary Dx) 12/19/2024 Travel 12/16/2024 Telephone [facility] [address] [place] [address] Tutu Moore MD CHART PREP 12/15/2024 Telephone [facility] [address] [place] [address] Tutu Moore MD Call Back Request 12/13/[address] [address] Tutu Moore MD triage 12/12/2024 11:30 AM EDT Office Visit [address] [address] Catalina Nava MD Viral illness (Primary Dx); Chronic cluster headache, not intractable; Essential hypertension 12/12/2024 Travel 12/12/[address] [address] Tutu Moore MD Nurse Triage 12/05/2024 3:45 PM EDT Office Visit [facility] [address] [place] [address] Tutu Moore MD Vertigo (Primary Dx) 12/05/2024 Travel 12/01/2024 Telephone [facility] [address] [place] [address] Tutu Moore MD Care Coordination 12/01/2024 Refill [facility] [address] [place] [address] Tutu Moore MD 11/02/2024 3:40 PM EDT Office Visit [facility] [address] [place] [address] Eduard Simeon MD Vertigo (Primary Dx) 11/02/2024 Refill [facility] [address] [place] [address] Tutu Moore MD Muscle strain 11/02/2024 Travel 11/02/[address] [address] Tutu Moore MD Nurse Triage from Last [...] Upcoming Encounters Date Type Department Care Team ([facility] st Contact Info) Description 12/26/2024 9:00 AM EST Office Visit [facility] [address] [place] [address] Tutu Moore MD [address] [place] [address] Health Maintenance Due Date Last Done Comments CT Colonography 1977 Colonoscopy 1977 FIT DNA/Cologuard 1977 FIT 1977 HIV Screening 1977 Sigmoidoscopy 1977 Family Planning (PISQ) 1992 Hepatitis C Screening 10/12/1995 Colorectal Cancer Screening 06/04/2024 FOBT 06/04/2024 06/05/2023 COVID-19 Vaccine (4 - season) 2024 12/24/2020, 04/16/2020, 03/25/2020 Influenza Vaccine (#1) 2024 , 12/18/2015, 11/28/2014, Additional history exists Alcohol/Substance Use Screening 04/15/2025 04/15/2024 SDOH Screening 04/15/2025 04/15/2024 Depression Monitoring 06/19/2025 12/19/2024, 025 Tobacco Screening 11/02/2025 11/02/2024 Disability Screening 12/19/2025 12/19/2024 Mammogram 12/28/2025 12/29/2023, 1106/2023, 12/29/2023 Zoster Vaccines (1 of 2) 10/12/2027 [...] PANEL Routine 12/19/2024 11:15 AM EDT Hyponatremia MR BRAIN W AND WO CONTRAST Routine 12/19/2024 Vertigo POCT INFLUENZA B (ID NOW RAPID MOLECULAR) Routine 12/12/2024 2:23 PM EDT Chronic cluster headache, not intractable POCT INFLUENZA A (ID NOW RAPID MOLECULAR) Routine 12/12/2024 2:23 PM EDT Chronic cluster headache, not intractable POCT RAPID COVID ANTIGEN Routine 12/12/2024 12:22 PM EDT Chronic cluster headache, not intractable MAMMOGRAPHY Routine 12/29/2023 11:01 AM EST PAP SMEAR Routine 06/12/2023 IFOBT Routine 06/05/2023 9:49 AM EDT LIPID PANEL, STANDARD Routine 11/17/2022 9:54 AM EDT Essential hypertension from Last 3 Months or Most Recently Relevant to Health Maintenance Results * (ABNORMAL) Basic Metabolic Panel (12/19/2024 11:15 AM EDT) Sodium 129(L) 135 - 145 mmol/L [facility] Potassium 4.3 3.3 - 5.1 mmol/L [facility] Chloride 99 96 - 108 mmol/L [facility] Carbon Dioxide 23 22 - 29 mmol/L [facility] Anion Gap 11(L) 12 - 20 [facility] Urea Nitrogen (BUN) 11 9 - 16 mg/dL [facility] Creatinine, Serum 0.57 0.5 - 1.4 mg/dL [facility] Estimated Glomerular Filt Rate >60 [facility] Comment:Chronic Kidney Disea se: Estimated GFR < 60 mL/min/1.82k4Pzdljh Kidney Disease: Estimated GFR < 15 mL/min/1.73m2 Glucose 87 60 - 115 mg/dL [facility] Calcium 8.7 8.4 - 10.2 mg/dL [facility] Blood Venous blood specimen / Unknown 12/19/2024 11:15 AM EDT 12/19/2024 2:00 PM EDT Tutu Moore MD LAB BLOOD ORDERABLES Final Result Performing Organization Address [facility] Co de Phone Number [facility] [address] [place] [phone] * Mr Brain w/ and w/o Contrast (12/19/2024) Anatomical Region Laterality Modality Brain Magnetic Resonan ce Tutu Moore MD IMG MRI PROCEDURES Final Re sult * POCT Rapid Influenza B SOOD ID NOW (12/12/2024 2:23 PM EDT) Influenza B Negative Negative, Indeterminate [facility] QC Media Lot # [id number] [facility] Lot# Expiration Date [facility] Swab 12/12/2024 2:23 PM EDT Catalina Nava MD POINT OF CARE TEST ENTER/EDIT OR DERABLES Final Result Performing Organization Address [facility] Co de Phone Number [facility] [address] [place] [phone] * POCT Rapid Influenza A SOOD ID NOW (12/12/2024 2:23 PM EDT) Influenza A Negative Negative, Indeterminate [facility] QC Media Lot # [id number] [facility] Lot# Expiration Date [facility] Swab 12/12/2024 2:23 PM EDT Catalina Nava MD POINT OF CARE TEST ENTER/EDIT OR DERABLES Final Result [facility] [address] [place] [phone] [phone] * POCT Rapid Covid-19 BinaxNOW (12/12/2024 12:22 PM EDT) Rapid COVID Ag Negative QC Media Lot # [id number] Lot# Expiration Date [id number] Swab 12/12/2024 12:2 2 PM EDT Catalina Nava MD POINT OF CARE TEST ENTER/EDIT OR DERABLES Final Result * Mammography (12/29/2023 11:01 AM EST) Anatomical Region Laterality Modality Other Historical Provider HEALTH MAINTENANCE Final Result * Pap Smear (06/12/2023) Pap Smear 1. NILM 1. NILM Swab 06/12/2023 Historical Provider LAB CYTOLOGY ORDERABLES F inal Result * gFOBT (06/05/2023 9:49 AM EDT) Historical Provider POINT OF CARE TEST ENTER/ EDIT ORDERABLES Final Result * Lipid Panel, Standard (11/17/2022 9:54 AM EDT) Triglycerides 113 <150 mg/dL [facility] Comment:Desirable Triglyceri de: less than 150 mg/dLBorderline High Triglyceride 150-199 mg/dLHigh Triglyceride: 200-499 mg/dLVery High Triglyceride: greater than or equal to 5OO mg/dL Cholesterol 149 <200 mg/dL [facility] Comment:Desirable Cholestero l: less than 200 mg/dLBorderline High Cholesterol: 200-239 mg/dLHigh Cholesterol: greater than 239 mg/dL LDL Cholesterol Calculated 63 <100 mg/dL [facility] Comment:Desirable LDL: less than 100 mg/dLNear Optimal/Above Optimal LDL: 110- 129 mg/dLBorderline High LDL: 130-159 mg/dLHigh LDL: 160-189 mg/dLVery High LDL: greater than or equal to 190 mg/dL HDL Cholesterol 64 >40 mg/dL [facility] Comment:Desirable HDL: great er than 40 mg/dL Note: This HDL assay may give artificially low results in patients with liver disease. Blood Venous blood specimen / Unknown 11/17/2022 9:54 AM EDT 11/17/2022 2:06 PM EDT us Tutu Moore MD LAB BLOOD ORDERABLES Final Result [facility] [address] [place] [phone] [phone] from Last 3 Months or Most Recently Relevant to Health Maintenance [place] [address] [place] [address] , [address] [place] [address] [address] [place] [id number] MAR[employer]ELLELLA Care Teams Metal Burrer Relationship Specialty Start Date End Date Tutu Moore MD [address] [place] [phone] PCP - General Internal Medicine 02/23/18
--- OUTSIDE RECORDS SUMMARY | 2024-12-23 09:33 | XMS_ITS | Encounter Summary ---
Author Organization [employer] Address [address] [facility] 7 [place] [address] Care Team Providers Care Smoking Pipe Coater Name Role Phone Tutu Moore MD Primary Care Provider [phone] Reason for Visit * Reason Onset Date Comments OTHER 12/05/2022 Encounter Details Date Type Department Care Team ([facility] st Contact Info) Description 12/05/2022 Telephone [facility] [address] [place] [address] Tutu Moore MD [address] [place] [address] OTHER Social History Tobacco Use Types Packs/Day [...] 12/26/2024 9:00 AM EST Office Visit [facility] [address] [place] [address] Tutu Moore MD [address] [place] [address] documented as of this encounter Visit Diagnoses Not on filedocumented in this encounter Additional Health Concerns Assessment Noted Time PHQ-9 Depression Total Score: 0 06/07/19 23 1:57 PM EDT documented as of this encounter Care Teams Smoking Pipe Coater Relationship Specialty Start Date End Date Tutu Moore MD [address] [place] [phone] PCP - General Internal Medicine 02/23/18 documented as of this encounter
--- OUTSIDE RECORDS SUMMARY | 2024-12-23 09:33 | XMS_ITS | Encounter Summary ---
Author Organization [employer] Address [address] [place] [address] [address], [place] [address] Care Team Providers Care Steel Die Printer Name Role Phone Tutu Moore MD Primary Care Provider [phone] Encounter Details Date Type Department Care Team ([facility] Contact Info) Description 11/21/2022 Orders Only [facility] [address] [place], [place] [phone] Tutu Moore MD [address] [place] [address] Obesity (BMI 30-39.9) (Primary Dx) Social History [...] Upcoming Encounters Date Type Department Care Team ([facility] Contact Info) Description 12/26/2024 9:00 AM EST Office Visit [facility] [address] [place], [place] [phone] Tutu Moore MD [address] [place], [place] [phone] documented as of this encounter Visit Diagnoses Diagnosis Obesity (BMI 30-39.9)- Primary documented in this encounter Additional Health Concerns Assessment Noted Time PHQ-9 Depression Total Score: 0 06/07/19 23 1:57 PM EDT documented as of this encounter Care Teams Steel Die Printer Relationship Specialty Start Date End Date Tutu Moore MD [address] [place] [address] PCP - General Internal Medicine 02/23/18 documented as of this encounter
--- OUTSIDE RECORDS SUMMARY | 2024-12-23 09:33 | XMS_ITS | Encounter Summary ---
Author Organization [employer] Address 75 [facility] 7t [place] [address] Care Team Providers Care Slate Picker Name Role Phone Tutu Moore MD Primary Care Provider [phone] Encounter Details Date Type Department Care Team ([facility] st Contact Info) Description 04/09/2023 Orders Only [facility] [address] [place], [place] [phone] Tutu Moore MD [address] [place] [address] Social History Tobacco Use Types Packs/Day Years [...] Description 12/26/2024 9:00 AM EST Office Visit [facility] [address] [place] [address] Tutu Moore MD [address] [place] [address] documented as of this encounter Visit Diagnoses Not on filedocumented in this encounter Additional Health Concerns Assessment Noted Time PHQ-9 Depression Total Score: 0 06/07/19 23 1:57 PM EDT documented as of this encounter Care Teams Slate Picker Relationship Specialty Start Date End Date Tutu Moore MD [address] [place] [address] PCP - General Internal Medicine 02/23/18 documented as of this encounter
--- OUTSIDE RECORDS SUMMARY | 2024-12-23 09:34 | XMS_ITS | Encounter Summary ---
Author Organization [employer] Address [address] [facility] [address] [place] [address] Care Team Providers Care Paint Mixer Hand Name Role Phone Tutu Moore MD Primary Care Provider [phone] Encounter Details Date Type Department Care Team ([facility] st Contact Info) Description 12/31/2023 Orders Only [facility] [address] [place], [place] [phone] Provider, MD [place] Social History Tobacco Use [...] Description 12/26/2024 9:00 AM EST Office Visit [facility] [address] [place] [address] Tutu Moore MD [address] [place] [address] documented as of this encounter Procedures Procedure [...] documented as of this encounter Care Teams Paint Mixer Hand Relationship Specialty Start Date End Date Tutu Moore MD [address] [place] [address] PCP - General Internal Medicine 02/23/18 documented as of this encounter
--- OUTSIDE RECORDS SUMMARY | 2024-12-23 09:34 | XMS_ITS | Encounter Summary ---
Author Organization [employer] Address [address] [facility] [address] [place] [address] Care Team Providers Care Asp Net Developer Name Role Phone Tutu Moore MD Primary Care Provider [phone] Encounter Details Date Type Department Care Team (Late st Contact Info) Description 11/02/2023 Abstract [facility] [address] [place], [place] [phone] [place], [place] Social History Tobacco Use Types Packs/Day [...] Description 12/26/2024 9:00 AM EST Office Visit [facility] [address] [place] [address] Tutu Moore MD [address] [place] [address] documented as of this encounter Procedures Procedure [...] documented as of this encounter Care Teams Asp Net Developer Relationship Specialty Start Date End Date Tutu Moore MD [address] [place] [address] PCP - General Internal Medicine 02/23/18 documented as of this encounter
--- OUTSIDE RECORDS SUMMARY | 2024-12-23 09:34 | XMS_ITS | Encounter Summary ---
Author Organization [employer] Address [address] [facility] 7 [place] [address] Care Team Providers Care Button Puncher Name Role Phone Tutu Moore MD Primary Care Provider [phone] Reason for Visit * Reason Onset Date Comments Call Back Request 07/06/2023 Encounter Details Date Type Department Care Team ([facility] st Contact Info) Description 07/06/2023 Telephone [facility] [address] [place] [address] Tutu Moore MD [address] [place] [address] Call Back Request Social History Tobacco Use [...] Description 12/26/2024 9:00 AM EST Office Visit [facility] [address] [place] [address] Tutu Moore MD [address] [place] [address] documented as of this encounter Visit Diagnoses Not on filedocumented in this encounter Additional Health Concerns Assessment Noted Time PHQ-9 Depression Total Score: 0 06/07/19 23 1:57 PM EDT documented as of this encounter Care Teams Button Puncher Relationship Specialty Start Date End Date Tutu Moore MD [address] [place] [address] PCP - General Internal Medicine 02/23/18 documented as of this encounter
--- OUTSIDE RECORDS SUMMARY | 2024-12-23 09:34 | XMS_ITS | Encounter Summary ---
Author Organization [employer] Address [address] [facility] 7 [place] [address] Care Team Providers Care Supervisor Water Treatment Plant Name Role Phone Tutu Moore MD Primary Care Provider [phone] Reason for Visit * Reason Onset Date Comments Nurse Triage 11/02/2024 Encounter Details Date Type Department Care Team ([facility] st Contact Info) Description 11/02/2024 Telephone [facility] MED[facility]INE [address] [place] [address] Tutu Moore MD [address] [place] [address] Nurse Triage Social History Tobacco Use Types [...] the past 12 months, has t he [employer] gas, oil or water company threatened to [...] Pt is advised no available apts in [facility] today or the next few days. [employer] can forward this information to [facility] team nurses for possible apt next week. Pt is advised may be seen by provider in [facility] today open till 8pm. Pt is given [facility] address [address] [facility] [place]. Pt will have transport thereafter work. Pt [...] 9:00 AM EST Office Visit [facility] [address] [place] [address] Tutu Moore MD [address] [place] [address] documented as of this encounter Visit Diagnoses Not on filedocumented in this encounter Additional Health Concerns Assessment Noted Time PHQ-9 Depression Total Score: 15 04/15/2 025 3:00 PM EST documented as of this encounter Care Teams Supervisor Water Treatment Plant Relationship Specialty Start Date End Date Tutu Moore MD [address] [place] [address] PCP - General Internal Medicine 02/23/18 documented as of this encounter
--- OUTSIDE RECORDS SUMMARY | 2024-12-23 09:34 | XMS_ITS | Encounter Summary ---
Author Organization [employer] Address [address] [facility] 7t [place] [address] Care Team Providers Care Program Associate Name Role Phone Tutu Moore MD Primary Care Provider [phone] Encounter Details Date Type Department Care Team ([facility] st Contact Info) Description 07/16/2023 Telephone [facility] MED[facility]INE [address] [place] [address] Tutu Moore MD [address] [place] [address] Social History Tobacco Use Types Packs/Day Years [...] [facility] [address] [place] [address] Tutu Moore MD [address] [place] [address] documented as of this encounter Visit Diagnoses Not on filedocumented in this encounter Additional Health Concerns Assessment Noted Time PHQ-9 Depression Total Score: 0 06/07/19 23 1:57 PM EDT documented as of this encounter Care Teams Program Associate Relationship Specialty Start Date End Date Tutu Moore MD [address] [place] [address] PCP - General Internal Medicine 02/23/18 documented as of this encounter
--- OUTSIDE RECORDS SUMMARY | 2024-12-23 09:34 | XMS_ITS | Encounter Summary ---
Author Organization [employer] Address 75 [facility] 7t [place] [address] Care Team Providers Care Chief Privacy Officer Name Role Phone Tutu Moore MD Primary Care Provider [phone] Encounter Details Date Type Department Care Team ([facility] st Contact Info) Description 09/01/2023 Orders Only [facility] [address] [place], [place] [phone] Tutu Moore MD [address] [place] [address] Social History Tobacco Use Types Packs/Day Years [...] Description 12/26/2024 9:00 AM EST Office [facility] [address] [place] [address] Tutu Moore MD [address] [place] [address] documented as of this encounter Visit Diagnoses Not on filedocumented in this encounter Additional Health Concerns Assessment Noted Time PHQ-9 Depression Total Score: 0 06/07/19 23 1:57 PM EDT documented as of this encounter Care Teams Chief Privacy Officer Relationship Specialty Start Date End Date Tutu Moore MD [address] [place] [address] PCP - General Internal Medicine 02/23/18 documented as of this encounter
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
--- OUTSIDE RECORDS SUMMARY | 2024-12-23 09:34 | XMS_ITS | Encounter Summary ---
Author Organization [employer] Address [address] [place] [address] Care Team Providers Care Therapeutic Activities Services Worker Name Role Phone Tutu Moore MD Primary Care Provider [phone] Reason for Visit * Reason Comments Med Refill Encounter Details Date Type Department Care Team ([facility] Contact Info) Description 04/27/2022 Refill [facility] MEDICINE [address] [place], [place] [phone] Tutu Moore MD [address] [place] [address] Chronic pain of right knee (Primary Dx); [...] Upcoming Encounters Date Type Department Care Team ([facility] Contact Info) Description 12/26/2024 9:00 AM EST Office Visit [facility] MED & PEDS [address] [place] [address] Tutu Moore MD [address] [place] [address] documented as of this encounter Visit Diagnoses Diagnosis Chronic pain of right knee- Primary Chronic dermatitis Contact dermatitis and other eczema, due to unspecified cause documented in this encounter Care Teams Therapeutic Activities Services Worker Relationship Specialty Start Date End Date Tutu Moore MD [address] [place] [address] PCP - General Internal Medicine 02/23/18 documented as of this encounter
[2024-12-23 14:13] LABS: Osmolality, Serum 270 mosm/kg (281-305)
== END 2024-12-23 08:58 | disposition home or self-care (01) ==
LOC: HO.CHCLDS 08:57
PROVIDERS: Visit Provider Internal Medicine
DX: E87.1 Hypo-osmolality and hyponatremia (principal)
CPT/HCPCS: 36415; 83930; 84300; 84443

== ENCOUNTER 2024-12-26 10:01 | Outpatient (REF) | payer MEDICAID, SELFPAY ==
--- OUTSIDE RECORDS SUMMARY | 2024-12-26 09:00 | XMS_ITS | Encounter Summary ---
Author Organization [employer] Address [address] [place] [address] 7 [place] [address] Care Team Providers Care Text Transcriber Name Role Phone Tutu Moore MD Primary Care Provider [phone] Encounter Details Date Type Department Care Team ([facility] st Contact Info) Description 12/26/2024 9:00 AM EST Office Visit [facility] CHC MED & PEDS [address] [place], [place] [phone] Tutu Moore MD [address] [place] [address] Social History Tobacco Use Types Packs/Day Years [...] Sign Reading Time Taken Comments Blood Pressure 128/71 12/26/2024 9:11 AM EST Pulse 107 12/26/2024 9:11 AM EST Temperature - - Respiratory Rate 20 12/26/2024 9:11 AM EST Oxygen Saturation 98% 12/26/2024 9:11 AM EST Inhaled Oxygen Concentration - - Weight 84.8 kg (187 lb) 12/26/2024 9:11 AM EST Height 163.8 cm (5' 4.5 ) 12/26/2024 9:11 AM EST Body Mass Index 31.6 12/26/2024 9:11 AM EST documented in this encounter Plan of Treatment Upcoming Encounters Date Type Department Care Team (Late st Contact Info) Description 01/02/2025 9:00 AM EST Office Visit [facility] CHC MED & PEDS [address] [place] [address] Tutu Moore MD [address] [place] [address] documented as of this encounter Visit Diagnoses Not on filedocumented in this encounter Additional Health Concerns Assessment Noted Time PHQ-9 Depression Total Score: 14 025 11:09 AM EDT documented as of this encounter Care Teams Text Transcriber Relationship Specialty Start Date End Date Tutu Moore MD [address] [place] [id number] PCP - General Internal Medicine 02/23/18 documented as of this encounter
--- OUTSIDE RECORDS SUMMARY | 2024-12-26 11:58 | XMS_ITS | Encounter Summary ---
Author Organization [employer] Address [address] [place] [address] Care Team Providers Care Armored Service Technician Name Role Phone Tutu Moore MD Primary Care Provider [phone] Encounter Details Date Type Department Care Team ([facility] st Contact Info) Description 12/31/2023 Orders Only [facility] CHC MED & PEDS [address] [place], [place] [phone] Provider, MD Dakotah Social History Tobacco Use [...] Description 01/02/2025 9:00 AM EST Office Visit [facility] MED & PEDS [address] [place] [address] Tutu Moore MD [address] [place] [address] documented as of this encounter Procedures Procedure [...] documented as of this encounter Care Teams Armored Service Technician Relationship Specialty Start Date End Date Tutu Moore MD [address] [place] [address] PCP - General Internal Medicine 02/23/18 documented as of this encounter
--- OUTSIDE RECORDS SUMMARY | 2024-12-26 11:58 | XMS_ITS | Encounter Summary ---
Author Organization [employer] Address [address] [facility] [address] [place] [address] Care Team Providers Care Intrusion Analyst Name Role Phone Tutu Moore MD Primary Care Provider [phone] Encounter Details Date Type Department Care Team ([facility] st Contact Info) Description 04/09/2023 Orders Only [facility] CHC MED & PEDS [address] [place], [place] [phone] Tutu Moore MD [address] [place] [address] Social History Tobacco Use Types Packs/Day Years [...] Description 01/02/2025 9:00 AM EST Office Visit [facility] MED & PEDS [address] [place] [address] Tutu Moore MD [address] [place] [address] documented as of this encounter Visit Diagnoses Not on filedocumented in this encounter Additional Health Concerns Assessment Noted Time PHQ-9 Depression Total Score: 0 06/07/19 23 1:57 PM EDT documented as of this encounter Care Teams Intrusion Analyst Relationship Specialty Start Date End Date Tutu Moore MD [address] [place] [address] PCP - General Internal Medicine 02/23/18 documented as of this encounter
--- OUTSIDE RECORDS SUMMARY | 2024-12-26 11:58 | XMS_ITS | Encounter Summary ---
Author Organization [employer] Address [address] [place] [address] [place], [place] [address] Care Team Providers Care Marine Electronics Technician Name Role Phone Tutu Moore MD Primary Care Provider [phone] Encounter Details Date Type Department Care Team ([facility] Contact Info) Description 11/21/2022 Orders Only [facility] MED & PEDS [address] [place], [place] [phone] Tutu Moore MD [address] [place] [address] Obesity (BMI 30-39.9) (Primary Dx) Social History [...] Upcoming Encounters Date Type Department Care Team ([facility] Contact Info) Description 01/02/2025 9:00 AM EST Office Visit [facility] MED & PEDS [address] [place], [place] [phone] Tutu Moore MD [address] [place], [place] [phone] documented as of this encounter Visit Diagnoses Diagnosis Obesity (BMI 30-39.9)- Primary documented in this encounter Additional Health Concerns Assessment Noted Time PHQ-9 Depression Total Score: 0 06/07/19 23 1:57 PM EDT documented as of this encounter Care Teams Marine Electronics Technician Relationship Specialty Start Date End Date Tutu Moore MD [address] [place] [id number] PCP - General Internal Medicine 02/23/18 documented as of this encounter
--- OUTSIDE RECORDS SUMMARY | 2024-12-26 11:58 | XMS_ITS | Encounter Summary ---
Author Organization [employer] Address [address] [place] [address] Care Team Providers Care Emergency Spill Response Technician Name Role Phone Tutu Moore MD Primary Care Provider [phone] Reason for Visit * Reason Comments Med Refill Encounter Details Date Type Department Care Team ([facility] Contact Info) Description 04/27/2022 Refill [facility] MEDICINE [address] [place], [place] [phone] Tutu Moore MD [address] [place] [address] Chronic pain of right knee (Primary Dx); [...] Encounters Date Type Department Care Team ([facility] Contact Info) Description 01/02/2025 9:00 AM EST Office Visit [facility] CHC MED & PEDS [address] [place] [address] Tutu Moore MD [address] [place] [address] documented as of this encounter Visit Diagnoses Diagnosis Chronic pain of right knee- Primary Chronic dermatitis Contact dermatitis and other eczema, due to unspecified cause documented in this encounter Care Teams Emergency Spill Response Technician Relationship Specialty Start Date End Date Tutu Moore MD [address] [place] [address] PCP - General Internal Medicine 02/23/18 documented as of this encounter
--- OUTSIDE RECORDS SUMMARY | 2024-12-26 11:58 | XMS_ITS | Encounter Summary ---
Author Organization [employer] Address [address] [place] [address] Care Team Providers Care Gluten Settling Tender Name Role Phone Tutu Moore MD Primary Care Provider [phone] Encounter Details Date Type Department Care Team (Late st Contact Info) Description 11/02/2023 Abstract [facility] MED & PEDS [address] [place], [place] [phone] [place], [place] Social History Tobacco Use Types Packs/Day [...] Description 01/02/2025 9:00 AM EST Office Visit [facility] CHC MED & PEDS [address] [place] [address] Tutu Moore MD [address] [place] [address] documented as of this encounter Procedures Procedure [...] documented as of this encounter Care Teams Gluten Settling Tender Relationship Specialty Start Date End Date Tutu Moore MD [address] [place] [address] PCP - General Internal Medicine 02/23/18 documented as of this encounter
--- OUTSIDE RECORDS SUMMARY | 2024-12-26 11:58 | XMS_ITS | Encounter Summary ---
Author Organization [employer] Address [address] [facility] 7 [place] [address] Care Team Providers Care Sql Consultant Name Role Phone Tutu Moore MD Primary Care Provider [phone] Encounter Details Date Type Department Care Team ([facility] st Contact Info) Description 10/21/2023 Orders Only [facility] CHC MED & PEDS [address] [place], [place] [phone] Tutu Moore MD [address] [place] [address] Obesity (BMI 30-39.9) Social History Tobacco Use [...] Description 01/02/2025 9:00 AM EST Office Visit [facility] MED & PEDS [address] [place] [address] Tutu Moore MD [address] [place] [address] documented as of this encounter Visit Diagnoses Diagnosis Obesity (BMI 30-39.9) documented in this encounter Additional Health Concerns Assessment Noted Time PHQ-9 Depression Total Score: 0 06/07/19 23 1:57 PM EDT documented as of this encounter Care Teams Sql Consultant Relationship Specialty Start Date End Date Tutu Moore MD [address] [place] [address] PCP - General Internal Medicine 02/23/18 documented as of this encounter
--- OUTSIDE RECORDS SUMMARY | 2024-12-26 11:58 | XMS_ITS | Encounter Summary ---
Author Organization [employer] Address 75 [facility] 7t [place] [address] Care Team Providers Care Flight Radio Officer Name Role Phone Tutu Moore MD Primary Care Provider [phone] Encounter Details Date Type Department Care Team ([facility] st Contact Info) Description 12/08/2022 Orders Only [facility] CHC MED & PEDS [address] [place], [place] [phone] Tutu Moore MD [address] [place] [address] Screening for tuberculosis (Primary Dx) Social History [...] Upcoming Encounters Date Type Department Care Team ([facility] st Contact Info) Description 01/02/2025 9:00 AM EST Office Visit [facility] CHC MED & PEDS [address] [place], [place] [phone] Tutu Moore MD [address] [place] [address] documented as of this encounter Procedures Procedure Name Priority Date/Time Associated Diagnosis Comments T-SPOT(R).TB Routine 12/16/2022 1:28 PM EDT Screening for tuberculosis documented in this encounter Results * T-SPOT??.TB (12/16/2022 1:28 PM EDT) [facility] T Spot TB Negative Negative [facility] Comment:A negative test resu lt does [...] as aquantitative test. TS PANEL A 0 [facility] TS PANEL B 0 [facility] Negative Control Passed [facility] Positive Control Passed [facility] Comment:For additional infor diana, please refer tohttp://education.AddressReport/faq/WZY117(This link is being provided for informational/educational purposes only.)THIS TEST WAS PERFORMED AT:[employer] [id number] [place] [id number] Piper ZENG MD,PHD 12/16/2022 1:28 PM EDT 12/16/2022 2:25 PM EDT us Tutu Moore MD LAB BLOOD ORDERABLES Final Result [facility] [address] [place] [address] [phone] documented in this encounter Visit Diagnoses Diagnosis Screening for tuberculosis- Primary Screening examination for pulmonary tuberculosis documented in this encounter Additional Health Concerns Assessment Noted Time PHQ-9 Depression Total Score: 0 06/07/19 23 1:57 PM EDT documented as of this encounter Care Teams Flight Radio Officer Relationship Specialty Start Date End Date Tutu Moore MD [address] [place] [id number] PCP - General Internal Medicine 02/23/18 documented as of this encounter
--- OUTSIDE RECORDS SUMMARY | 2024-12-26 11:58 | XMS_ITS | Clinical Summary ---
Author Organization [address] [facility] Address [address] [place] [address] Phone Care Team Providers Care Continuous Improvement Director Name Role Phone Tutu Moore MD Primary Care Provider [phone] Allergies No known active allergies Medications POTASSIUM [...] Date Type Department Care Team Description 12/19/2024 3:23 PM EDT - 12/19/2024 11:59 PM EDT Hospital Encounter MRI [address] [place] [address] Dizziness and giddiness Discharge Disposition: Home or Self Care 11/01/2024 Telephone Bariatric Surgery - [place] [address] [facility] [address] [place] [phone] Diamond Li MD from Last 3 Months Immunizations Immunization Administration Dates Next Due Hepatitis B (Wfaxtcg-W-Xnpug , Recombivax HB-Adult) 19yo and older 06/04/2012,12/19/2011,11/10/2011 [...] Date Site/Laterality Comments GASTRIC BYPASS 09/2004 PROCEDURE: CA GASTRIC RSTCV W/BYP W/SM INT RCNSTJ LIMIT ABSRPJ OTHER SURGICAL HISTORY 2013 PROCEDURE: CA LAPS GASTRIC RESTRICTIVE PROCEDURE PLACE DEVICE; COMMENT: [...] Care Team (Late st Contact Info) Description 02/07/2025 9:15 AM EST Office Visit Bariatric Surgery - [address] [place] [address] Diamond Li MD [address] [place] [phone] Health Maintenance Due Date Last Done Comments Colorectal Cancer Screening: Colonoscopy 1977 Hepatitis C Screening 01/26/2022 Medicare Annual Wellness Visit 01/26/2022 Social Influencers of Health Screening 01/26/2022 Depression Screening 02/24/2024 COVID-19 Vaccine ( season) 2024 12/24/2020, 04/16/2020, 03/25/2020 Influenza Vaccine (#1) 2024 , 12/18/2015, 11/28/2014, Additional history exists Hypertension/CHF/CAD Annual BMP Blood Test 12/19/2025 12/19/2024, 12/07/2023, 12/07/2023 Breast Cancer Screening 12/28/2025 12/29/19, [...] Procedure Name Priority Date/Time Associated Diagnosis Comments MR BRAIN WO AND W CONTRAST Routine 12/19/2024 4:23 PM EDT Dizziness and giddiness MG MAMMO DIGITAL SCREENING W ADRIÁN BILAT Routine 12/29/2023 3:43 PM EST Encounter for screening mammogram for breast cancer ANNUAL BMP BLOOD TEST Routine 12/07/2023 HPV Routine 06/05/2023 HIV SCREENING Routine 06/09/2007 LIPID PANEL Routine 02/08/2001 from Last 3 Months or Most Recently Relevant to Health Maintenance Results * MR Brain wo and w Contrast (12/19/2024 4:23 PM EDT) Anatomical Region Laterality Modality Head and Neck Magnetic Resonan ce 12/23/2024 8:00 AM EDT Impressions 12/23/2024 8:20 AM EDT Normal MRI appearance of the brain. -------- FINAL REPORT -------- Dictated By: Wesley Singh Dictated Date: 12/23/2024 08:00 ET Assigned Physician: Wesley Singh Reviewed and Electronically Signed By: Wesley Singh Signed Date: 12/23/2024 08:20 ET Workstation ID: [id number] Transcribed By: Self Edit Transcribed Date: 12/23/2024 08:00 ET Narrative 12/23/2024 8:20 AM EDT PROCEDURE: Contrast-enhanced MRI of the brain. HISTORY: dizziness, described as a sensation of room spinning. TECHNIQUE: Multiplanar multisequence MRI of the brain with and without intravenous contrast. IV CONTRAST DOSE: 20 mL intravenous Dotarem from a 20 mL vial with 0 mL discarded. COMPARISON: None. FINDINGS: This study is mildly limited by patient motion. BRAIN: No diffusion abnormality. No mass or extra-axial fluid collection. No hydrocephalus. The major intracranial flow voids are preserved. Age commensurate ventricles and sulci. No abnormal enhancement. ORBITS: Normal. SINUSES/MASTOIDS: Minimal mucosal thickening in the inferior maxillary antra. CALVARIUM: Normal. OTHER: The visualized skull base soft tissues are normal. Procedure Note Wesley Singh MD - 12/23/2024 PROCEDURE: Contrast-enhanced MRI of the brain. HISTORY: dizziness, described as a sensation of room spinning. TECHNIQUE: Multiplanar multisequence MRI of the brain with and withoutintravenous contrast. IV CONTRAST DOSE: 20 mL intravenous Dotarem from a 20 mL vial with 0 mLdiscarded. COMPARISON: None. FINDINGS: This study is mildly limited by patient motion. BRAIN: No diffusion abnormality. No mass or extra-axial fluid collection.No hydrocephalus. The major intracranial flow voids are preserved. Agecommensurate ventricles and sulci. No abnormal enhancement. ORBITS: Normal. SINUSES/MASTOIDS: Minimal mucosal thickening in the inferior maxillaryantra. CALVARIUM: Normal. OTHER: The visualized skull base soft tissues are normal. IMPRESSION: Normal MRI appearance of the brain. -------- FINAL REPORT -------- Dictated By: Wesley Singh Dictated Date: 12/23/2024 08:00 ET Assigned Physician: Wesley Singh Reviewed and Electronically Signed By: Wesley Singh Signed Date: 12/23/2024 08:20 ET Workstation ID: [id number] Transcribed By: Self Edit Transcribed Date: 12/23/2024 08:00 ET Tutu Moore MD IM MRI PROCEDURES Final Result * MG Mammo Digital Screening w Adrián [...] is recommended in 1 year. Mammo Location: [facility], [address] [place] [address], [id number], . -------- FINAL REPORT -------- Dictated By: Jason Vizcaino Dictated Date: 12/30/2023 16:02 ET Assigned Physician: Jason Vizcaino Reviewed and Electronically Signed By: Jason Vizcaino Signed Date: 12/30/2023 18:34 ET Workstation ID: [id number] Transcribed By: Self Edit Transcribed Date: 12/30/2023 [...] Comparison made to multiple prior, most recent December, and most remote May 18, 2018. BILATERAL BREASTS: No significant masses, suspicious calcifications orother abnormalities are seen. IMPRESSION: BILATERAL BREASTS: Negative, no evidence of malignancy. Normal intervalfollow-up is recommended in 12 months. BREAST DENSITY: B - There are scattered areas of fibroglandular density. BI-RADS CATEGORY: 1 - NEGATIVE RECOMMENDATION: Screening bilateral mammogram is recommended in 1 year. Mammo Location: [facility], [address] [place] [address], [id number], . -------- FINAL REPORT -------- Dictated By: Jason Vizcaino Dictated Date: 12/30/2023 16:02 ET Assigned Physician: Jason Vizcaino Reviewed and Electronically Signed By: Jason Vizcaino Signed Date: 12/30/2023 18:34 ET Workstation ID: [id number] Transcribed By: Self Edit Transcribed Date: 12/30/2023 16:16 ET Tutu Moore MD IMG BI PROCEDURES Final R esult * Annual BMP Blood Test (12/07/2023) Pathologist [facility] Annual BMP Blood Test abstracted Historical Provider HEALTH MAINTENANCE Final Result * Cervical Cancer Screening: HPV (06/05/2023) Pathologist [facility] Cervical Cancer Screening: HPV abstracted, negative Historical Provider HEALTH MAINTENANCE Final Result * HIV Screening (06/09/2007) Pathologist [facility] HIV Screening abstracted Result [facility] Historical Provider HEALTH MAINTENANCE Final Result * Lipid panel (02/08/2001) [facility] LDL/HDL Ratio 2 1 - 4 Triglycerides 131 10 - 140 mg/dL Cholesterol 165 10 - 200 mg/dL HDL 76 32 - 96 mg/dL LDL Cholesterol 63 62 - 185 mg/dL Blood Venous blood specimen / Unknown Result [facility] Historical Provider LAB BLOOD ORDERABLES Dee l Result from Last 3 Months or Most Recently Relevant to Health Maintenance Insurance [facility] MEDICARE Care Teams Continuous Improvement Director Relationship Specialty Start Date End Date Tutu Moore MD [address] [place] [address] PCP - General 09/17/10
--- OUTSIDE RECORDS SUMMARY | 2024-12-26 11:58 | XMS_ITS | Encounter Summary ---
Author Organization [employer] Address [address] [place] [address] Care Team Providers Care Masonry Inspector Name Role Phone Tutu Moore MD Primary Care Provider [phone] Reason for Visit * Reason Comments Med Change Request Encounter Details Date Type Department Care Team (Late Contact Info) Description 05/14/2022 Refill [facility] CHC MED & PEDS [address] [place] [address] Quin Rapp MD [address] [place] [address] Atopic dermatitis, unspecified type Social History Tobacco [...] Department Care Team (Late Contact Info) Description 01/02/2025 9:00 AM EST Office Visit [facility] CHC MED & PEDS [address] [place] [address] Tutu Moore MD [address] [place] [address] documented as of this encounter Visit Diagnoses Diagnosis Atopic dermatitis, unspecified type documented in this encounter Care Teams Masonry Inspector Relationship Specialty Start Date End Date Tutu Moore MD [address] [place] [address] PCP - General Internal Medicine 02/23/18 documented as of this encounter
--- OUTSIDE RECORDS SUMMARY | 2024-12-26 11:58 | XMS_ITS | Encounter Summary ---
Author Organization [employer] Address [address] [facility] [address] [place] [address] Care Team Providers Care Preschool Aide Name Role Phone Tutu Moore MD Primary Care Provider [phone] Encounter Details Date Type Department Care Team (Latest Contact Info) Description 12/26/2024 Travel Social History Tobacco Use Types Packs/Day [...] Upcoming Encounters Date Type Department Care Team ([facility] st Contact Info) Description 01/02/2025 9:00 AM EST Office Visit [facility] MED & PEDS [address] [place] [address] Tutu Moore MD [address] [place] [address] documented as of this encounter Visit Diagnoses Not on filedocumented in this encounter Additional Health Concerns Assessment Noted Time PHQ-9 Depression Total Score: 14 025 11:09 AM EDT documented as of this encounter Care Teams Preschool Aide Relationship Specialty Start Date End Date Tutu Moore MD [address] [place] [address] PCP - General Internal Medicine 02/23/18 documented as of this encounter
--- OUTSIDE RECORDS SUMMARY | 2024-12-26 11:58 | XMS_ITS | Encounter Summary ---
Author Organization [employer] Address [address] [place] [address] Care Team Providers Care Home Companion Name Role Phone Tutu Moore MD Primary Care Provider [phone] Reason for Visit * Reason Comments Med Refill Encounter Details Date Type Department Care Team (Late Contact Info) Description 11/01/2022 Refill [facility] MEDICINE [address] [place], [place] [phone] Quin Rapp MD [address] [place], [place] [phone] Hypertension, unspecified type Social History Tobacco Use [...] Description 01/02/2025 9:00 AM EST Office Visit [facility] CHC MED & PEDS [address] [place], [place] [phone] Tutu Moore MD [address] [place], [place] [phone] documented as of this encounter Visit Diagnoses Diagnosis Hypertension, unspecified type documented in this encounter Additional Health Concerns Assessment Noted Time PHQ-9 Depression Total Score: 0 06/07/19 23 1:57 PM EDT documented as of this encounter Care Teams Home Companion Relationship Specialty Start Date End Date Tutu Moore MD [address] [place] [id number] PCP - General Internal Medicine 02/23/18 documented as of this encounter
--- OUTSIDE RECORDS SUMMARY | 2024-12-26 11:58 | XMS_ITS | Encounter Summary ---
Author Organization [employer] Address [address] [facility] 7t [place] [address] Care Team Providers Care General Intern Name Role Phone Tutu Moore MD Primary Care Provider [phone] Encounter Details Date Type Department Care Team ([facility] st Contact Info) Description 11/03/2023 Orders Only [facility] [address] [place] [address] Provider, MD Dakotah Social History Tobacco Use [...] Description 01/02/2025 9:00 AM EST Office Visit [facility] CHC MED & PEDS [address] [place] [address] Tutu Moore MD 505 [place] [address] documented as of this encounter Procedures Procedure [...] documented as of this encounter Care Teams General Intern Relationship Specialty Start Date End Date Tutu Moore MD [address] [place] [address] PCP - General Internal Medicine 02/23/18 documented as of this encounter
--- OUTSIDE RECORDS SUMMARY | 2024-12-26 11:58 | XMS_ITS | Clinical Summary ---
Author Organization [employer] Address [address] [facility] 7t [place] [address] Care Team Providers Care Drawer In Dobby Loom Name Role Phone Ttuu Moore MD Primary Care Provider [phone] Allergies No known active allergies Medications buPROPion [...] 026 Active cholecalciferol (Vitamin D-3) 1.25 MG (78632 UT) capsule TAKE 1 CAPSULE BY MOUTH [...] Encounters Date Type Department Care Team Description 12/26/2024 9:00 AM EST Office Visit [facility] [address] [facility] [place] [address] Tutu Moore MD 12/26/2024 Travel 12/23/2024 Orders Only [facility] [address] [facility] [place] [address] Tutu Moore MD Viral illness (Primary Dx); Hyponatremia 12/20/2024 Results Follow-Up [facility] [address] [facility] [place] [address] Delores García RN Basic Metabolic Panel 12/19/2024 10:15 AM EDT Office Visit [facility] [address] [place], [place] [phone] Tutu Moore MD Hyponatremia (Primary Dx); Epigastric pain; Essential hypertension 12/19/2024 Orders Only [facility] [address] [place], [place] [phone] Tutu Moore MD Hyponatremia (Primary Dx) 12/19/2024 Travel 12/16/2024 Telephone [facility] [address] [place], [place] [phone] Tutu Moore MD CHART PREP 12/15/2024 Telephone [facility] [address] [place], [place] [phone] Tutu Moore MD Call Back Request 12/13/2024 Telephone [facility] [address] [place] [address] Tutu Moore MD triage 12/12/2024 11:30 AM EDT Office Visit [facility] [address] [place] [address] Catalina Nava MD Viral illness (Primary Dx); Chronic cluster headache, not intractable; Essential hypertension 12/12/2024 Travel 12/12/[address] [address] Tutu Moore MD Nurse Triage 12/05/2024 3:45 PM EDT Office Visit [facility] [address] [place], [place] [phone] Tutu Moore MD Vertigo (Primary Dx) 12/05/2024 Travel 12/01/2024 Telephone [facility] [address] [place], [place] [phone] Tutu Moore MD Care Coordination 12/01/2024 Refill [facility] [address] [place], [place] [phone] Tutu Moore MD 11/02/2024 3:40 PM EDT Office Visit [facility] [address] [place] [address] Eduard Simeon MD Vertigo (Primary Dx) 11/02/2024 Refill [facility] [address] [place] [address] Tutu Moore MD Muscle strain 11/02/2024 Travel 11/02/2024 Telephone [facility] [address] [place] [address] uTtu Moore MD Nurse Triage from Last 3 [...] Pulse 107 12/26/2024 9:11 AM EST Temperature 36 C (96.8 F) 12/12/2024 11:33 AM EDT Respiratory Rate 20 12/26/2024 9:11 AM EST Oxygen Saturation 98% 12/26/2024 9:11 AM EST Inhaled Oxygen Concentration - - Weight 84.8 kg (187 lb) 12/26/2024 9:11 AM EST Height 163.8 cm (5' 4.5 ) 12/26/2024 9:11 AM EST Body Mass Index 31.6 12/26/2024 9:11 AM EST Plan of Treatment Upcoming Encounters Date Type Department Care Team (Late st Contact Info) Description 01/02/2025 9:00 AM EST Office Visit [facility] [address] [place], [place] [phone] Tutu Moore MD [address] [place], [place] [phone] Health Maintenance Due Date Last Done Comments [...] Procedure Name Priority Date/Time Associated Diagnosis Comments SODIUM W/O CREATININE, RANDOM URINE Routine 12/23/2024 9:00 AM EDT Hyponatremia TSH W/REFLEX TO FT4 Routine 12/23/2024 8 :59 AM EDT Hyponatremia OSMOLALITY (SERUM) Routine 12/23/2024 8: 59 AM EDT Hyponatremia BASIC METABOLIC PANEL Routine 12/19/2024 11:15 AM [...] Recently Relevant to Health Maintenance Results * Sodium Without creatinine, Random Urine (12/23/2024 9:00 AM EDT) Sodium Urine Random 69.0 mmol/L [facility] Urine Urine specimen obtained by clean catch procedure / Unknown 12/23/2024 9:00 AM EDT 12/23/2024 2:00 PM EDT us Tutu Moore MD LAB BLOOD ORDERABLES Final Result Performing Organization Address [facility] Co de Phone Number [facility] [address] [place] [phone] * TSH W/Reflex to FT4 (12/23/2024 8:59 AM EDT) Pathologist [facility] TSH reflex Free T4 0.81 0.32 - 4.0 uIU/mL [facility] Blood Venous blood specimen / Unknown 12/23/2024 8:59 AM EDT 12/23/2024 2:00 PM EDT us Tutu Moore MD LAB BLOOD ORDERABLES Final Result Performing Organization Address [facility] Phone Number [facility] [address] [place] [phone] * (ABNORMAL) Osmolality, Serum (12/23/2024 8:59 AM EDT) Pathologist [facility] Osmolality (Serum) 270(L) 281 - 305 mosm/kg [facility] Blood Venous blood specimen / Unknown 12/23/2024 8:59 AM EDT 12/23/2024 2:00 PM EDT us Tutu Moore MD LAB BLOOD ORDERABLES Final Result Performing Organization Address [facility] de Phone Number [facility] [address] [place] [phone] * (ABNORMAL) Basic Metabolic Panel (12/19/2024 11:15 AM EDT) Sodium 129(L) 135 - 145 mmol/L [facility] Potassium 4.3 3.3 - 5.1 mmol/L [facility] Chloride 99 96 - 108 mmol/L [facility] Carbon Dioxide 23 22 - 29 mmol/L [facility] Anion Gap 11(L) 12 - 20 [facility] Urea Nitrogen (BUN) 11 9 - 16 mg/dL [facility] Creatinine, Serum 0.57 0.5 - 1.4 mg/dL [facility] Estimated Glomerular Filt Rate >60 [facility] Comment:Chronic Kidney Disea se: Estimated GFR < 60 mL/min/[id number] Kidney Disease: Estimated GFR < 15 mL/min/1.73m2 Glucose 87 60 - 115 mg/dL [facility] Calcium 8.7 8.4 - 10.2 mg/dL [facility] Blood Venous blood specimen / Unknown 12/19/2024 11:15 AM EDT 12/19/2024 2:00 PM EDT us Tutu Moore MD LAB BLOOD ORDERABLES Final Result [facility] [address] [place] [phone] * Mr Brain w/ and w/o Contrast (12/19/2024) Anatomical Region Laterality Modality Brain Magnetic Resonan ce Tutu Moore MD IMG MRI PROCEDURES Final Re sult * POCT Rapid Influenza B SOOD ID NOW (12/12/2024 2:23 PM EDT) Influenza B Negative Negative, Indeterminate [facility] QC Media Lot # [id number] [facility] Lot# Expiration Date , [facility] Swab 12/12/2024 2:23 PM EDT Catalina Nava MD POINT OF CARE TEST ENTER/EDIT OR DERABLES Final Result Performing Organization Address [facility]/ZIP Co de Phone Number [facility] [address] [place] [phone] * POCT Rapid Influenza A SOOD ID NOW (12/12/2024 2:23 PM EDT) Influenza A Negative Negative, Indeterminate [facility] QC Media Lot # [id number] [facility] Lot# Expiration Date [facility] Swab 12/12/2024 2:23 PM EDT Catalina Nava MD POINT OF CARE TEST ENTER/EDIT OR DERABLES Final Result Performing Organization Address [facility] Co de Phone Number [facility] [address] [place] [phone] * POCT Rapid Covid-19 [employer] (12/12/2024 12:22 PM EDT) Rapid COVID Ag Negative QC Media Lot # [id number] Lot# Expiration Date Swab 12/12/2024 12:2 2 PM EDT Catalina [...] 9:54 AM EDT) Triglycerides 113 <150 mg/dL [facility] Comment:Desirable Triglyceri de: less than 150 mg/dLBorderline High Triglyceride 150-199 mg/dLHigh Triglyceride: 200-499 mg/dLVery High Triglyceride: greater than or equal to 5OO mg/dL Cholesterol 149 <200 mg/dL [facility] Comment:Desirable Cholestero l: less than 200 mg/dLBorderline High Cholesterol: 200-239 mg/dLHigh Cholesterol: greater than 239 mg/dL LDL Cholesterol Calculated 63 <100 mg/dL [facility] Comment:Desirable LDL: less than 100 mg/dLNear Optimal/Above Optimal LDL: 110- 129 mg/dLBorderline High LDL: 130-159 mg/dLHigh LDL: 160-189 mg/dLVery High LDL: greater than or equal to 190 mg/dL HDL Cholesterol 64 >40 mg/dL [facility] Comment:Desirable HDL: great er than 40 mg/dL Note: This HDL assay may give artificially low results in patients with liver disease. Blood Venous blood specimen / Unknown 11/17/2022 9:54 AM EDT 11/17/2022 2:06 PM EDT us Tutu Moore MD LAB BLOOD ORDERABLES Final Result [facility] [address] [place] [phone] from Last 3 Months or Most Recently Relevant to Health Maintenance Insurance , [address] [place] [address] [phone] ARBELLA Care Teams Drawer In Dobby Loom Relationship Specialty Start Date End Date Tutu Moore MD [address] [place] [phone] PCP - General Internal Medicine 02/23/18
--- OUTSIDE RECORDS SUMMARY | 2024-12-26 11:58 | XMS_ITS | Encounter Summary ---
Author Organization [employer] Address 75 [facility] 7 [place] [address] Care Team Providers Care Shafting Cleaner Name Role Phone Tutu Moore MD Primary Care Provider [phone] Reason for Visit * Reason Onset Date Comments OTHER 12/05/2022 Encounter Details Date Type Department Care Team ([facility] st Contact Info) Description 12/05/2022 Telephone [facility] [address] [place] [address] Tutu Moore MD [address] [place] [address] OTHER Social History Tobacco Use Types Packs/Day [...] Description 01/02/2025 9:00 AM EST Office Visit [facility] [address] [place] [address] Tutu Mooer MD [address] [place] [address] documented as of this encounter Visit Diagnoses Not on filedocumented in this encounter Additional Health Concerns Assessment Noted Time PHQ-9 Depression Total Score: 0 06/07/19 23 1:57 PM EDT documented as of this encounter Care Teams Shafting Cleaner Relationship Specialty Start Date End Date Tutu Moore MD [address] [place] [phone] PCP - General Internal Medicine 02/23/18 documented as of this encounter
--- OUTSIDE RECORDS SUMMARY | 2024-12-26 11:58 | XMS_ITS | Encounter Summary ---
Author Organization [employer] Address [address] [facility] 7t [place] [address] Care Team Providers Care Amusement Park Ride Mechanic Name Role Phone Tutu Moore MD Primary Care Provider [phone] Encounter Details Date Type Department Care Team ([facility] st Contact Info) Description 10/15/2023 Orders Only [facility] [address] [place] [address] Tutu Moore MD [address] [place] [address] Obesity (BMI 30-39.9) Social History Tobacco Use [...] Description 01/02/2025 9:00 AM EST Office Visit [facility] [address] [place] [address] Tutu Moore MD [address] [place] [address] documented as of this encounter Visit Diagnoses Diagnosis Obesity (BMI 30-39.9) documented in this encounter Additional Health Concerns Assessment Noted Time PHQ-9 Depression Total Score: 0 06/07/19 23 1:57 PM EDT documented as of this encounter Care Teams Amusement Park Ride Mechanic Relationship Specialty Start Date End Date Tutu Moore MD [address] [place] [address] PCP - General Internal Medicine 02/23/18 documented as of this encounter
--- OUTSIDE RECORDS SUMMARY | 2024-12-26 11:58 | XMS_ITS | Encounter Summary ---
Author Organization [employer] Address 75 [facility] 7 [place] [address] Care Team Providers Care Director Industrial Name Role Phone Tutu Moore MD Primary Care Provider [phone] Encounter Details Date Type Department Care Team ([facility] st Contact Info) Description 12/23/2024 Orders Only [facility] [address] [place], [place] [phone] Tutu Moore MD [address] [place] [address] Viral illness (Primary Dx); Hyponatremia Social History Tobacco Use Types Packs/Day Years [...] Description 01/02/2025 9:00 AM EST Office Visit [facility] [address] [place] [address] Tutu Moore MD [address] [place] [address] Scheduled Orders Name Type Priority Associated Diagnoses Orde r Schedule Basic Metabolic Panel Lab Routine Viral illness Expected: 12/23/2024 (Approximate), Expires: 12/23/2025 documented as of this encounter Visit Diagnoses Diagnosis Viral illness- Primary Unspecified viral infection, in conditions classified elsewhere and of unspecified site Hyponatremia Hyposmolality and/or hyponatremia documented in this encounter Additional Health Concerns Assessment Noted Time PHQ-9 Depression Total Score: 14 025 11:09 AM EDT documented as of this encounter Care Teams Director Industrial Relationship Specialty Start Date End Date Tutu Moore MD [address] [place] [address] PCP - General Internal Medicine 02/23/18 documented as of this encounter
--- OUTSIDE RECORDS SUMMARY | 2024-12-26 11:58 | XMS_ITS | Encounter Summary ---
Author Organization [employer] Address 75 [facility] 7 [place] [address] Care Team Providers Care Jewel Waxer Name Role Phone Tutu Moore MD Primary Care Provider [phone] Reason for Visit * Reason Comments Med Change Request Encounter Details Date Type Department Care Team ([facility] st Contact Info) Description 04/08/2023 Refill [facility] [address] [place] [address] Tutu Moore MD [address] [place] [address] Stress incontinence (Primary Dx); Hypertension, unspecified type [...] 01/02/2025 9:00 AM EST Office Visit [facility] [address] [place] [address] Tutu Moore MD [address] [place] [address] documented as of this encounter Visit Diagnoses Diagnosis Stress incontinence- Primary Female stress incontinence Hypertension, unspecified type documented in this encounter Additional Health Concerns Assessment Noted Time PHQ-9 Depression Total Score: 0 06/07/19 23 1:57 PM EDT documented as of this encounter Care Teams Jewel Waxer Relationship Specialty Start Date End Date Tutu Moore MD [address] [place] [address] PCP - General Internal Medicine 02/23/18 documented as of this encounter
--- OUTSIDE RECORDS SUMMARY | 2024-12-26 11:58 | XMS_ITS | Encounter Summary ---
Author Organization [employer] Address [address] [place] [address] Care Team Providers Care Auto Top Mechanic Name Role Phone Tutu Moore MD Primary Care Provider [phone] Reason for Visit * Reason Comments Med Refill Encounter Details Date Type Department Care Team (Late Contact Info) Description 11/01/2022 Refill [facility] [address] [place] [address] Tutu Moore MD [address] [place] [address] Social History Tobacco Use Types Packs/Day Years [...] Description 01/02/2025 9:00 AM EST Office Visit [facility] [address] [place] [address] Tutu Moore MD [address] [place] [address] documented as of this encounter Visit Diagnoses Not on filedocumented in this encounter Additional Health Concerns Assessment Noted Time PHQ-9 Depression Total Score: 0 06/07/19 23 1:57 PM EDT documented as of this encounter Care Teams Auto Top Mechanic Relationship Specialty Start Date End Date Tutu Moore MD [address] [place] [phone] PCP - General Internal Medicine 02/23/18 documented as of this encounter
--- OUTSIDE RECORDS SUMMARY | 2024-12-26 11:59 | XMS_ITS | Encounter Summary ---
Author Organization [employer] Address 75 [facility] 7 [place] [address] Care Team Providers Care Construction Person Name Role Phone Tutu Moore MD Primary Care Provider [phone] Reason for Visit * Reason Onset Date Comments Nurse Triage 11/02/2024 Encounter Details Date Type Department Care Team ([facility] st Contact Info) Description 11/02/2024 Telephone [facility] [address] [place] [address] Tutu Moore MD [address] [place] [address] Nurse Triage Social History Tobacco Use Types [...] the past 12 months, has t he [employer], gas, oil or water company threatened [...] Pt is advised no available apts in [facility] today or the next few days. Street Light Servicer Helper can forward this information to [facility] team nurses for possible apt next week. Pt is advised may be seen by provider in [facility] today open till 8pm. Pt is given [facility] address [address] [facility] [place]. Pt will have transport thereafter work. Pt [...] 9:00 AM EST Office Visit [facility] [address] [place] [address] Tutu Moore MD [address] [place] [address] documented as of this encounter Visit Diagnoses Not on filedocumented in this encounter Additional Health Concerns Assessment Noted Time PHQ-9 Depression Total Score: 15 04/15/2 025 3:00 PM EST documented as of this encounter Care Teams Construction Person Relationship Specialty Start Date End Date Tutu Moore MD [address] [place] [phone] PCP - General Internal Medicine 02/23/18 documented as of this encounter
--- OUTSIDE RECORDS SUMMARY | 2024-12-26 11:59 | XMS_ITS | Data Portability ---
Author Organization [facility] [place], [employer] Address [address] [place] [address] [place] [address] Care Team Providers Care Sewer Pipe Layer Name Role Phone STEPHAN CHAVEZ Referring Provider Unavailabl e Unavailable Referring Provider [facility] Primary Care Provider [phone] Assessment Encounter Date Assessment Date Assessment LastModified by Organization Details LastModified Time 09/07/2023 09/07/2023 IMPRESSION: Daily headaches. 2013 headaches, ~3 times per week, refractory to topiramate; B otox benefit, adjunct to topiramate, through summer 2016; Headache morbidity resolution, ~2471-6735, for unknown reasons; Return of headaches causing [...] By Organization Details Last Modified Time 09/07/2023 40602 PREVIOUS DISCUSS IONS >>>>>>>>>>>>>BOTOX PROCEDURE 11/28/2016 300 [...] minutes [email or web address] Not available 09/07/2023 09:57:13 02/29/2024 [id number] PREVIOUS DISCUSS IONS >>>>>>>>>>>>>BOTOX PROCEDURE 11/28/2016 300 [...] 5 botulinum injection completed Manuel John MD [address] [place] [address] [place], [address], [facility] 11/24/2024 14:35:45 5 botulinum injection completed Manuel John MD [address] [place] [address] [place], [address], [facility] 06/29/2024 14:23:36 5 botulinum injection completed Manuel John MD [address] [place] [address] [place], [address], [facility] 03/30/2024 14:55:31 5 DATA REVIEW completed Manuel John MD [address] [place] [address] [place], [address], [facility] 02/29/2024 14:32:34 Imaging Results None recorded. [...] Updated DateTime 09/07/2023 165.1 cm 35.8 kg/m2 92329.36 g 12 /min [facility] 09/07/2023 09:38:25 Social History Question Answer Notes LastModified by Organizat ion Details LastModified Time Tobacco Smoking Status Never Smoker [facility] 09/07/2023 09:38:49 What Is Your Level Of Caffeine Consumption? Occasional Information not available 09/07/2023 What Is The Highest Grade Or Level Of School You Have Completed Or The Highest Degree You Have Received? [id number] Information not available 09/07/2023 Which Of Your [...] Not available 10:05:44 Medical History Condition Response High Blood Pressure or Hypertension Y Vitamin D Deficiency Y Vitamin B12 deficiency Y Headaches Y Asthma Y Gynecological HistoryNo gynecological history recorded. Obstetrics History GPAL:G 0 P 0 0 0 0 Past Encounters Encounter ID Performer Location Encounter Start Date Encounter Closed Date Diagnosis/Indication Diagnosis SNOMED-CT Code Diagnosis ICD10 Code Diagnosis IMO Codes Diagnosis Note [id number] Manuel John MD [facility] [address] [place] [address] [place] [address] 09/07/2023 09:04:05 09/07/2023 10:39:10 Migraine without aura 42737648 G43.009 [id number] Manuel John MD [facility] [address] [place] [address] [place] [address] 02/29/2024 13:54:07 02/29/2024 16:36:50 Migraine without aura [id number] G43.009 [id number] Manuel John MD [facility] [address] [place] [address] [place] [address] 03/30/2024 13:38:53 03/30/2024 15:53:29 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 74 454261 G24.3 Facial spasm 19096400 G5 1.33 [id number] Manuel John MD [facility] [address] [place] [address] SHAMIR RUIZ ANA [address] 4 06/29/2024 12:08:43 06/29/2024 15:08:16 Primary torsion dystonia 45798208 G24.1 Spasmodic torticollis 74 423568 G24.3 Facial spasm 93781644 G5 1.33 [id number] Manuel John MD [facility] [address] [place] [address] SHAMIR RUIZANA [id number] 4 11/24/2024 12:53:41 11/30/2024 12:49:14 Primary torsion dystonia 02793304 G24.1 Spasmodic torticollis 74 839316 G24.3 Facial spasm 95267809 G5 1.33 Health Concerns Section Related Observation LastModified by Organization Detai ls LastModified Time None Recorded Concern Status LastModified by Organization Details LastModified Time None Recorded Advance Directives Directive None Recorded Payers Insurance Date Sequence Insurance Name Policy Number Policy Carrillo Covered Member ID Carrillo Member ID Guarantor Name 11/30/[address] [place] [address] [id number] Pema Pena [id number] Pema Pena 09/07/2023 2 [place] [facility] Pema Pena [id number] Pema Pena 11/23/2024 2 [place] [facility] Pema Pena [id number] Pema Pena Notes Date Note Type Note [...] 28, 2016 most recent neurology encounter with dc (for Botox injections), 6 years and 9 months ago, she could not follow-up because her father and she needed to go to [place] where she stayed for 9 months. She supposes that the Botox worked ideally as it had previously but she does not remember. In any case, she does not remember headaches bothering her particularly in [place] maybe it was the adrenaline. However, she [...] switched jobs. 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 She was working in going to [employer] through ~mid 2022. 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 She is on the computer much of [...] her headaches. 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 She likes the idea philosophically I d never put my mother in a penitentiary. She continues on Topamax which she restarted [...] Baclofen also cause tiredness. Manuel John MD [address] [place] [address] [place], [phone], [facility] 09/07/2023 09:57:27 02/29/2024 text/html Neurology follow-up [...] father and she needed to go to [place] where she stayed for 9 months. She supposes that the Botox worked ideally as it had previously but she does not remember. In any case, she does not remember headaches bothering her particularly in [place] maybe it was the adrenaline. However, she [...] switched jobs. 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 She was working in going to [employer] through ~mid 2022. 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 She is on the computer much of [...] her headaches. 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 She likes the idea philosophically I d never put my mother in a penitentiary. She continues on Topamax which she restarted [...] Baclofen also cause tiredness. Manuel John MD [address] [place] [address] [place], [address], [facility] 02/29/2024 14:38:35 03/30/2024 text/html Follow-up for Botox injections for muscle spasm triggering shoulder pain, neck pain and headache.-She is accompanied by her . >>>>>>>>>>>> BOTOX #1 (since November 28, 2016)We follow the amount and locations from chart note on Botox procedure November 28, 2016.Except: omitted SCM and lower trap edge -- no referral. Manuel John MD [address] [place] [address] [place], [address], [facility] 03/30/2024 15:46:16 06/29/2024 text/html Follow-up for [...] edge -- no referral. Manuel John MD [address] [place] [address] [place], [address], [facility] 06/29/2024 14:24:11 11/24/2024 text/html Follow-up for [...] edge -- no referral. Manuel John MD [address] [place] [address] [place], [phone], [facility] 11/24/2024 14:37:58 OBGyn Episode No OBEpisode recorded.
--- OUTSIDE RECORDS SUMMARY | 2024-12-26 11:59 | XMS_ITS | Clinical Summary ---
Author Organization [facility] Address [address] [place] [address] Care Team Providers Care Offset Proof Press Operator Name Role Phone Unavailable Primary Care Provider [...] Description 11/18/2024 3:00 PM EDT Office Visit [facility] [id number] [place] [address] Mary Ferrari DDS from Last 3 Months [...] Description 12/26/2024 4:20 PM EST Office Visit [facility] [address] [place] [phone] Vega johan, DDS [address] [place] [address] Health Maintenance Due Date Last Done Comments [...] Drug Screen 02/24/2024 Depression Annual Screen 02/24/2024 [id number] ( season) 2024 021 Imm-Influenza (#1) 2024 [...] Routine 11/18/2024 3:00 PM EDT Defective dental druze Caries Full PERIODIC ORAL EVALUATION ESTABLISHED PATIENT Routine 11/18/2024 3:00 PM EDT [facility] INTRAORAL - COMP SERIES OF RADIOGRAPHIC IMAGES Routine 04/05/2024 3:00 PM EST Caries of enamel (incipient) Defective dental druze Caries PROPHYLAXIS - ADULT Routine 04/05/2024 3 :00 PM EST [facility]ies Defective dental druze Caries of enamel (incipient) from Last 3 Months or Most Recently Relevant to Health Maintenance Insurance [place] MED[place]
--- OUTSIDE RECORDS SUMMARY | 2024-12-26 11:59 | XMS_ITS | Encounter Summary ---
Author Organization [employer] Address [address] [facility] 7t [place] [address] Care Team Providers Care Business Planner Name Role Phone Tutu Moore MD Primary Care Provider [phone] Encounter Details Date Type Department Care Team ([facility] st Contact Info) Description 09/01/2023 Orders Only [facility] MED & PEDS [address] [place], [place] [phone] Tutu Moore MD [address] [place] [address] Social History Tobacco Use Types Packs/Day Years [...] 01/02/2025 9:00 AM EST Office Visit [facility] MED [facility] PED[facility] [address] [place] [address] Tutu Moore MD [address] [place] [address] documented as of this encounter Visit Diagnoses Not on filedocumented in this encounter Additional Health Concerns Assessment Noted Time PHQ-9 Depression Total Score: 0 06/07/19 23 1:57 PM EDT documented as of this encounter Care Teams Business Planner Relationship Specialty Start Date End Date Tutu Moore MD [address] [place] [address] PCP - General Internal Medicine 02/23/18 documented as of this encounter
--- OUTSIDE RECORDS SUMMARY | 2024-12-26 11:59 | XMS_ITS | Encounter Summary ---
Author Organization [employer] Address [address] [facility] 7 [place] [address] Care Team Providers Care Health Worker Name Role Phone Tutu Moore MD Primary Care Provider [phone] Reason for Visit * Reason Onset Date Comments Call Back Request 07/06/2023 Encounter Details Date Type Department Care Team ([facility] st Contact Info) Description 07/06/2023 Telephone [facility]IC[facility] [address] [place] [address] Tutu Moore MD [address] [place] [address] Call Back Request Social History Tobacco Use [...] Description 01/02/2025 9:00 AM EST Office Visit [facility] MED & PEDS [address] [place] [address] Tutu Moore MD [address] [place] [address] documented as of this encounter Visit Diagnoses Not on filedocumented in this encounter Additional Health Concerns Assessment Noted Time PHQ-9 Depression Total Score: 0 06/07/19 23 1:57 PM EDT documented as of this encounter Care Teams Health Worker Relationship Specialty Start Date End Date Tutu Moore MD [address] [place] [address] PCP - General Internal Medicine 02/23/18 documented as of this encounter
--- OUTSIDE RECORDS SUMMARY | 2024-12-26 11:59 | XMS_ITS | Encounter Summary ---
Author Organization [employer] Address [address] [facility] 7t [place] [address] Care Team Providers Care Manufacturing Quality Engineer Name Role Phone Tutu Moore MD Primary Care Provider [phone] Encounter Details Date Type Department Care Team ([facility] st Contact Info) Description 07/16/2023 Telephone [facility] [address] [place] [address] Tutu Moore MD [address] [place] [address] Social History Tobacco Use Types Packs/Day Years [...] Description 01/02/2025 9:00 AM EST Office Visit [facility] MED & PEDS [address] [place] [address] Tutu Moore MD [address] [place] [address] documented as of this encounter Visit Diagnoses Not on filedocumented in this encounter Additional Health Concerns Assessment Noted Time PHQ-9 Depression Total Score: 0 06/07/19 23 1:57 PM EDT documented as of this encounter Care Teams Manufacturing Quality Engineer Relationship Specialty Start Date End Date Tutu Moore MD [address] [place] [address] PCP - General Internal Medicine 02/23/18 documented as of this encounter
[2024-12-26 14:34] LABS: Anion Gap 10 (12-20); Blood Urea Nitrogen 8 mg/dL (9-16); Calcium 9.0 mg/dL (8.4-10.2); Carbon Dioxide 23 mmol/L (22-29); Chloride 99 mmol/L (96-108); Estimated Glomerular Filt Rate > 60; Potassium 4.1 mmol/L (3.3-5.1); Sodium 128 mmol/L (135-145)
== END 2024-12-26 10:02 | disposition home or self-care (01) ==
LOC: HO.CHCLDS 10:01
PROVIDERS: Visit Provider Internal Medicine
DX: E87.1 Hypo-osmolality and hyponatremia (principal); B34.9 Viral infection, unspecified
CPT/HCPCS: 36415; 80048; 83935

== ENCOUNTER 2025-01-02 09:53 | Outpatient (REF) | payer OTHER, MEDICARE, MEDICAID, SELFPAY ==
--- OUTSIDE RECORDS SUMMARY | 2025-01-02 09:00 | XMS_ITS | Encounter Summary ---
Author Organization [employer] Address [address] [place] [address] 7 [place] [address] Care Team Providers Care Production Mechanic Tin Cans Name Role Phone Tutu Moore MD Primary Care Provider [phone] Encounter Details Date Type Department Care Team ([facility] st Contact Info) Description 01/02/2025 9:00 AM EST Office Visit [facility] MED & PEDS [address] [place], [place] [phone] Tutu Moore MD [address] [place] [address] Hyponatremia (Primary Dx); Chronic migraine with aura without status migrainosus, not intractable Social History Tobacco Use Types Packs/Day Years [...] Sign Reading Time Taken Comments Blood Pressure 106/61 01/02/2025 9:15 AM EST Pulse 91 01/02/2025 9:15 AM EST Temperature - - Respiratory Rate 20 01/02/2025 9:15 AM EST Oxygen Saturation 99% 01/02/2025 9:15 AM EST Inhaled Oxygen Concentration - - Weight 85.7 kg (189 lb) 01/02/2025 9:15 AM EST Height 163.8 cm (5' 4.5 ) 01/02/2025 9:15 AM EST Body Mass Index 31.94 01/02/2025 9:15 AM EST documented in this encounter Plan of Treatment Scheduled Orders Name Type Priority Associated Diagnoses Orde r Schedule Basic Metabolic Panel Lab Routine Hyponatremia Expected: 01/02/2025 (Approximate), Expires: 01/02/2026 documented as of this encounter Visit Diagnoses Diagnosis Hyponatremia- Primary Hyposmolality and/or hyponatremia Chronic migraine with aura without status migrainosus, not intractable documented in this encounter Additional Health Concerns Assessment Noted Time PHQ-9 Depression Total Score: 14 025 11:09 AM EDT documented as of this encounter Care Teams Production Mechanic Tin Cans Relationship Specialty Start Date End Date Tutu Moore MD [address] [place] [address] PCP - General Internal Medicine 02/23/18 documented as of this encounter
--- OUTSIDE RECORDS SUMMARY | 2025-01-02 11:16 | XMS_ITS | Encounter Summary ---
Author Organization [employer] Address [address] [facility] 7 [place] [address] Care Team Providers Care Driver Guide Name Role Phone Tutu Moore MD Primary Care Provider [phone] Reason for Visit * Reason Onset Date Comments OTHER 12/05/2022 Encounter Details Date Type Department Care Team ([facility] st Contact Info) Description 12/05/2022 Telephone [facility] MEDICINE [address] [place] [address] Tutu Moore MD [address] [place] [address] OTHER Social History Tobacco Use Types Packs/Day [...] documented in this encounter Plan of Treatment Not on file documented as of this encounter Visit Diagnoses Not on filedocumented in this encounter Additional Health Concerns Assessment Noted Time PHQ-9 Depression Total Score: 0 06/07/19 23 1:57 PM EDT documented as of this encounter Care Teams Driver Guide Relationship Specialty Start Date End Date Tutu Moore MD [address] [place] [address] PCP - General Internal Medicine 02/23/18 documented as of this encounter
--- OUTSIDE RECORDS SUMMARY | 2025-01-02 11:16 | XMS_ITS | Encounter Summary ---
Author Organization [employer] Address [address] [facility] [address] [place] [address] Care Team Providers Care Sewing Machine Operator Zipper Name Role Phone Tutu Moore MD Primary Care Provider [phone] Encounter Details Date Type Department Care Team ([facility] st Contact Info) Description 04/09/2023 Orders Only [facility] MED & PEDS [address] [place], [place] [phone] Tutu Moore MD [address] [place] [address] Social History Tobacco Use Types Packs/Day Years [...] as of this encounter Plan of Treatment Not on file documented as of this encounter Visit Diagnoses Not on filedocumented in this encounter Additional Health Concerns Assessment Noted Time PHQ-9 Depression Total Score: 0 06/07/19 23 1:57 PM EDT documented as of this encounter Care Teams Sewing Machine Operator Zipper Relationship Specialty Start Date End Date Tutu Moore MD [address] [place] [address] PCP - General Internal Medicine 02/23/18 documented as of this encounter
--- OUTSIDE RECORDS SUMMARY | 2025-01-02 11:16 | XMS_ITS | Encounter Summary ---
Author Organization [employer] Address [address] [facility] 7 [place] [address] Care Team Providers Care Cook Frozen Dessert Name Role Phone Tutu Moore MD Primary Care Provider [phone] Reason for Visit * Reason Comments Med Change Request Encounter Details Date Type Department Care Team ([facility] st Contact Info) Description 04/08/2023 Refill [facility] [address] [place] [address] Tutu Moore MD [address] [place] [address] Stress incontinence (Primary Dx); Hypertension, unspecified type [...] documented as of this encounter Care Teams Cook Frozen Dessert Relationship Specialty Start Date End Date Tutu Moore MD [address] [place] [address] PCP - General Internal Medicine 02/23/18 documented as of this encounter
--- OUTSIDE RECORDS SUMMARY | 2025-01-02 11:16 | XMS_ITS | Continuity of Care Document ---
Author Organization [facility]ly [facility] Address [address] [place] [address] Care Team Providers Care Glass Mechanic Name Role Phone STEPHAN CHAVEZ Referring Provider Unavailabl e Unavailable Referring Provider [phone] [facility] Primary Care Provider Assessment Encounter Date Assessment Date Assessment LastModified by Organization Details LastModified Time 12/28/2024 12/28/2024 IMPRESSION: Daily headaches. 2013 headaches, ~3 times [...] not enough benefit, still with daily headaches. b rain MRI with and without contrast December 19, 2024: No diffusion or mass or extra-axial fluid or hydrocephalus abnormality. No abnormal enhancement. No further comment is reported on brain parenchyma. Mildly limited by patient motion noted p er radiology dictation.. --December 28, 2024 Botox initiation March 2024: Daily headaches/dizzin ess => weekly mild headaches, Botox injections missed September 2024 => resumption of daily headaches/dizzin ess, Botox resumption November 24, 2024 => persisting headaches/dizzin ess + additional nausea/emesis & shift headache pain -> frontal regions + hyponatremia, which, per patient, persists along with headache/dizzine ss (nausea/emesis helped by Zofran). >>>>>>>>>>>>Wilfredo barone 2024 She has hyponatremia with diagnosis of SIADH. Hyponatremia, what ever the cause, may involve headache as a symptom. There are neurological causes of SIADH. Among them are sinus venous thrombosis which may separately cause continuous headache. Normal neurological exam with flat disc margins makes chronic sinus venous thrombosis, already a rare phenomenon, even less likely. We discussed that brain MRI a lthough limited per radiology by patient motion h ad ruled out serious but rare issues that might relate to her situation. Additional imaging studies could be pursued to look for serious but even more rare situation, that I cannot exclude but have become unlikely with her normal neurological exam. She is scared. I told her that I could do such as study and though it likely would be normal, it would reduce her current fear level (i.e., magnetic resonance venography M RV). If she wanted to wait until she sees nephrology, we could hold off. If nephrology does not obtain definitive diagnosis and resolution of her symptoms, we would then reconsider this additional imaging. She understood. She declined (MRV) imaging today. >>>>>>>>>>>>Handy alves 2024 We discussed another CGRP [...] to do Qulipta and Botox at once. >>>>>>>>>>>> September 07, 2023 Primary care has suggested Qulipta, one of [...] try to get preauthorization . >>>>>>>>>>>>> Pema Jean December 28, 2024 Call if you decide to do the additional imaging (MRV) and I will order it and then have you follow-up afterwards. Otherwise: Follow-up for Botox, 300 units, for multifocal muscle spasm in shoulders, neck and facial muscles, and associated migraines, 91 days after previous injections. [email or web address] Not available 12/28/2024 18:54:58 Plan of Treatment Reminders Order Date Submit [...] Modified By Organization Details Last Modified Time 12/28/2024 [id number] PREVIOUS DISCUSS IONS >>>>>>>>>>>>>BOTOX PROCEDURE 11/28/2016 300 [...] greater than 40 minutes [email or web address] Not available 12/28/2024 17:29:00 Reason for Referral None Reported. Procedures Surgical History Date Name Laterality Status Provider Name and Address Organization Details Recorded Time DATA REVIEW completed Manuel John MD [address] [place], [place] [address], [phone], [facility] 12/28/2024 17:28:59 botulinum injection completed Manuel John MD [address] [place] [address], [place], [address], [facility] 11/24/2024 14:35:45 5 botulinum injection completed Manuel John MD [address] [place] [address] [place], [address], [facility] 06/29/2024 14:23:36 5 botulinum injection completed Manuel John MD [address] [place] [address] [place], [address], [facility] [employer] [facility] 03/30/2024 14:55:31 5 DATA REVIEW completed Manuel John MD [address] [place] [address] [place], [address], [facility] 02/29/2024 14:32:34 Imaging Results None recorded. Procedure [...] Not Available Not Available No t Available ibuprofen 800 mg tablet TAKE 1 TABLET BY MOUTH EVERY 8 HOURS IF NEEDED FOR MILD PAIN, FEVER, MODERATE PAIN OR HEADACHES. active Not Available Not Available N ot Available benzonatate 200 mg capsule PLEASE SEE ATTACHED FOR DETAILED DIRECTIONS active Not Available Not Available N ot Available sucralfate 1 gram tablet TAKE 1 TABLET (1 G) BY MOUTH BEFORE BREAKFAST, BEFORE LUNCH, BEFORE EVENING MEAL, AND AT BEDTIME. active Not Available Not Available Not Available ondansetron HCl 4 mg tablet TAKE 1 TABLET BY MOUTH EVERY 8 HOURS NEEDED FOR NAUSEA OR FOR VOMITING FOR UP TO 7 DAYS active Not Available Not Available No t Available clonazepam 1 mg tablet TAKE 1 [...] t Available quetiapine 50 mg tablet TAKE 1-2 TABLETS BY MOUTH AT BEDTIME, NEEDED active [...] Available Not Available No t Available Vitals None Recorded Social History Question Answer Notes LastModified by Organizat ion Details LastModified Time Tobacco Smoking Status Never Smoker [facility] 09/07/2023 09:38:49 What Is Your Level Of Caffeine Consumption? Occasional Information not available 09/07/2023 What Is The Highest Grade Or Level Of School You Have Completed Or The Highest Degree You Have Received? [id number] Information not available 09/07/2023 Which Of Your [...] ICD10 Code Diagnosis IMO Codes Diagnosis Note [id number] Manuel John MD [facility] [address] [place] [address] [place] [address] 12/28/2024 15:00:53 12/28/2024 18:12:36 Migraine without aura [id number] G43.009 Health Concerns Section Related Observation LastModified by Organization Detai ls LastModified Time None Recorded Concern Status LastModified by Organization Details LastModified Time None Recorded Payers Encounter Date Sequence Insurance Name Policy Number Policy Carrillo Covered Member ID Carrillo Member ID Guarantor Name 12/28/2024 1 [employer] [facility] Shipzi [id number] Pema Pena [id number] Pema Pena 12/28/2024 2 [place] [facility] Pema Pena [id number] Pema Pena Notes Date Note Type Note Provider Name and Address Organization Details Recorded Time 12/28/2024 text/html Neurology follow-up for headaches. --Past history [...] --She is accompanied by her , Andrey Ogden. >>>>>>>>>>>>December 28, 2024Since November 24, 2024 Botox injections Neurology follow-up encounter, her daily headache has continued daily and has worsened. She has had primary care and December 13, 2024 emergency room visit. There is hyponatremia, unresolved, with nephrology consultation pending with diagnosis of SIADH. We reviewed:Her daily headache started 1 to 2 months before November 24. She reiterates that, at November 24, 2024 Botox injection encounter, the headache was similar to her normal migraines, with pain prominently at the back of the head, light sensitivity and dizziness. She is consistent today with her opinion she had at the time, November 24, that the daily headache related to being 1-2 months late for Botox injections.However, the headache intensified and transformed. The pain moved to the front of her head. Dizziness intensified. Nausea and emesis evolved and she does not normally have nausea/emesis with her headache/dizziness migraine syndrome.She presented to primary care December 02. Zofran was given for nausea/emesis and meclizine was given for dizziness. This was not sufficient. She presented to [facility] ER December 13, 2024 where hyponatremia was found. They gave her IV medication but this was not helpful for her symptoms.Her symptoms continued today, essentially unchanged from those at the emergency room December 13. She reports that hyponatremia has not resolved h er osmolality, she has been told, is still quite high.We review her medications: Clonazepam, clonidine, nifedipine, Lipitor, Effexor, temazepam for sleep. She is also on Wellbutrin and bupropion from psychiatry. The Wellbutrin dose was lowered recently and is the only change of daily medication.She is also on as needed medications: Ibuprofen, Tylenol and recently added ondansetron and meclizine.She has stopped the Wegovy since emergency room visit at the advice of healthcare providers there.I am prescribing no oral medications. I prescribed Qulipta 60 mg daily in 2023. She stopped it February 2024 when we move toward Botox to treat tight muscles and associated migraine headaches. >>>>>>>>>>>> 2024 BOTOX #3For the first 3 [...] SCM and lower trap edge -- no referral.>>>>>>>>>>>> February 29, 2024Since September 07, 2023 neurology reconsultation, she [...] father and she needed to go to [place] where she stayed for 9 months. She supposes that the Botox worked ideally as it had previously but she does not remember. In any case, she does not remember headaches bothering her particularly in [place] maybe it was the adrenaline. However, she [...] switched jobs. 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 She was working in going to [employer] through ~mid 2022. Since then, she has obtained a job working from home, still as a oncology social worker. She is on the computer much of [...] her headaches. 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 She likes the idea philosophically I d never put my mother in a longterm. She continues on Topamax which she restarted [...] Baclofen also cause tiredness. Manuel John MD [address] [place] [address] [place], [address], [facility] 12/28/2024 18:55:02 OBGyn Episode No OBEpisode recorded.
--- OUTSIDE RECORDS SUMMARY | 2025-01-02 11:16 | XMS_ITS | Encounter Summary ---
Author Organization [employer] Address [address] [place] [address] [address] [place] [address] Care Team Providers Care Nutrition Educator Name Role Phone Tutu Moore MD Primary Care Provider [phone] Reason for Referral * Consultation (Urgent) - Authorized Specialty Diagnoses / Procedures Referred By Contgertrudis coffman Referred To Contact Nephrology Diagnoses Hyponatremia Tutu Moore MD [address] [place] [address] Phone: tel: fax: [facility] [address], [address] [place] [address] Phone: tel: fax: Referral ID Status Reason Start Date Expiration Date Visits Requested Visits Authorized [id number] Authorized Specialty Services Required 12/26/2024 12/26/2025 1 1 Encounter Details Date Type Department Care Team (Late st Contact Info) Description 12/23/2024 Orders Only [facility] P[facility]S [address] [place] [address] Tutu Moore MD [address] [place] [address] Viral illness (Primary Dx); Hyponatremia Social History [...] as of this encounter Plan of Treatment Scheduled Referrals Name Type Priority Associated Diagnoses Order Schedule Referral to Nephrology Outpatient Referral Urgent Hyponatremia Expected: 12/26/2024 (Approximate), Expires: 12/26/2025 documented as of this encounter Procedures Procedure Name Priority Date/Time Associated Diagnosis Comments BASIC METABOLIC PANEL Routine 12/26/2024 10:05 AM EST Viral illness documented in this encounter Results * (ABNORMAL) Basic Metabolic Panel (12/26/2024 10:05 AM EST) Sodium 128(L) 135 - 145 mmol/L [facility] Potassium 4.1 3.3 - 5.1 mmol/L [facility] Chloride 99 96 - 108 mmol/L [facility] Carbon Dioxide 23 22 - 29 mmol/L [facility] Anion Gap 10(L) 12 - 20 [facility] Urea Nitrogen (BUN) 8(L) 9 - 16 mg/dL [facility] Creatinine, Serum 0.59 0.5 - 1.4 mg/dL [facility] Estimated Glomerular Filt Rate >60 [facility] Comment:Chronic Kidney Disea se: Estimated GFR < 60 mL/min/1.34c7Moolyz Kidney Disease: Estimated GFR < 15 mL/min/1.73m2 Glucose 84 60 - 115 mg/dL [facility] Calcium 9.0 8.4 - 10.2 mg/dL [facility] Blood Venous blood specimen / Unknown 12/26/2024 10:05 AM EST 12/26/2024 2:06 PM EST us Tutu Moore MD LAB BLOOD ORDERABLES Final Result [facility] [address] [place] [address] [phone] documented in this encounter Visit Diagnoses Diagnosis Viral illness- Primary Unspecified viral infection, in conditions classified elsewhere and of unspecified site Hyponatremia Hyposmolality and/or hyponatremia documented in this encounter Additional Health Concerns Assessment Noted Time PHQ-9 Depression Total Score: 14 025 11:09 AM EDT documented as of this encounter Care Teams Nutrition Educator Relationship Specialty Start Date End Date Tutu Moore MD [address] [place] [address] PCP - General Internal Medicine 02/23/18 documented as of this encounter
--- OUTSIDE RECORDS SUMMARY | 2025-01-02 11:16 | XMS_ITS | Encounter Summary ---
Author Organization [employer] Address [address] [facility] 7t [place] [address] Care Team Providers Care Saturator Name Role Phone Tutu Moore MD Primary Care Provider [phone] Encounter Details Date Type Department Care Team ([facility] st Contact Info) Description 12/08/2022 Orders Only [facility] CHC MED & PEDS [address] [place], [place] [phone] Tutu Moore MD [address] [place] [address] Screening for tuberculosis (Primary Dx) Social History [...] on file documented as of this encounter Procedures Procedure Name Priority Date/Time Associated Diagnosis Comments T-SPOT(R).TB Routine 12/16/2022 1:28 PM EDT Screening for tuberculosis documented in this encounter Results * T-SPOT??.TB (12/16/2022 1:28 PM EDT) T Spot TB Negative Negative [facility] Comment:A negative test resu lt [...] as aquantitative test. TS PANEL A 0 [facility] TS PANEL B 0 [facility] Negative Control Passed [facility] Positive Control Passed [facility] Comment:For additional infor diana, please refer tohttp://education.[employer]/faq/MPE288(This link is being provided for informational/educational purposes only.)THIS TEST WAS PERFORMED AT:[employer] [id number] [place] [address]GYFIERCLEISA ZENG MD,PHD 12/16/2022 1:28 PM EDT 12/16/2022 2:25 PM EDT Tutu Moore MD LAB BLOOD ORDERABLES Final Result [facility] [address] [place] [address] [phone] documented in this encounter Visit Diagnoses Diagnosis Screening for tuberculosis- Primary Screening examination for pulmonary tuberculosis documented in this encounter Additional Health Concerns Assessment Noted Time PHQ-9 Depression Total Score: 0 06/07/19 23 1:57 PM EDT documented as of this encounter Care Teams Saturator Relationship Specialty Start Date End Date Tutu Moore MD [address] [place] [address] PCP - General Internal Medicine 02/23/18 documented as of this encounter
--- OUTSIDE RECORDS SUMMARY | 2025-01-02 11:16 | XMS_ITS | Encounter Summary ---
Author Organization [employer] Address [address] [place] [address] Care Team Providers Care Tutor Coordinator Name Role Phone Tutu Moore MD Primary Care Provider [phone] Reason for Visit * Reason Comments Med Change Request Encounter Details Date Type Department Care Team ([facility] Contact Info) Description 05/14/2022 Refill C [facility] MED [facility] PEDS [address] [place], [place] [phone] Quin Rapp MD [address] [place] [address] Atopic dermatitis, unspecified type Social History Tobacco [...] type documented in this encounter Care Teams Tutor Coordinator Relationship Specialty Start Date End Date Tutu Moore MD [address] [place], [place] [phone] PCP - General Internal Medicine 1/1/19 documented as of this encounter
--- OUTSIDE RECORDS SUMMARY | 2025-01-02 11:16 | XMS_ITS | Encounter Summary ---
Author Organization [employer] Address [address] [facility] [address] [facility] [place] [address] Care Team Providers Care Cell Liner Name Role Phone Tutu Moore MD Primary Care Provider [phone] Encounter Details Date Type Department Care Team (Latest Contact Info) Description 01/02/2025 Travel Social History Tobacco Use Types Packs/Day [...] documented as of this encounter Care Teams Cell Liner Relationship Specialty Start Date End Date Tutu Moore MD [address] [place] [address] PCP - General Internal Medicine 02/23/18 documented as of this encounter
--- OUTSIDE RECORDS SUMMARY | 2025-01-02 11:16 | XMS_ITS | Clinical Summary ---
Author Organization [facility] Address [address] [place] [address] Phone Care Team Providers Care Mid Level Clinician Name Role Phone Tutu Moore MD Primary Care Provider [phone] Allergies No known active allergies Medications POTASSIUM [...] - 12/19/2024 11:59 PM EDT Hospital Encounter [facility] MRI [address] [place] [address] Dizziness and giddiness Discharge Disposition: Home or Self Care 11/01/2024 Telephone Bariatric Surgery - [place] [address] [facility] [address] [place] [phone] Diamond Li MD from Last 3 Months Immunizations Immunization Administration Dates Next Due Hepatitis B (Zmndijr-P-Tfdwv , Recombivax HB-Adult) 19yo and older 06/04/2012,12/19/2011,11/10/2011 [...] Date Site/Laterality Comments GASTRIC BYPASS 09/2004 PROCEDURE: [facility] GASTRIC RSTCV W/BYP W/SM INT RCNSTJ LIMIT ABSRPJ OTHER SURGICAL HISTORY 2013 PROCEDURE: [facility] LAPS GASTRIC RESTRICTIVE PROCEDURE PLACE DEVICE; COMMENT: [...] Years Used Date Smoking Tobacco: Former Cigarettes 0 Q uit: 06/07/2007 Smokeless Tobacco: Never Alcohol [...] AM EST Office Visit Bariatric Surgery - [address] [place] [address] Diamond Li MD [address] [place] [phone] Health Maintenance Due Date Last Done [...] Encounter for screening mammogram for breast cancer [facility] ANNUAL BMP BLOOD TEST Routine 12/07/2023 HPV [...] Signed Date: 12/23/2024 08:20 ET Workstation ID: [id number] Transcribed By: Self Edit Transcribed Date: 12/23/2024 [...] Date: 12/23/2024 08:00 ET Assigned Physician: Wesley Signh Reviewed and Electronically Signed By: Wesley Singh Signed Date: 12/23/2024 08:20 ET Workstation ID: [id number] Transcribed By: Self Edit Transcribed Date: 12/23/2024 [...] is recommended in 1 year. Mammo Location: [facility], [address] [place] [address], [address], . -------- FINAL REPORT -------- Dictated By: Jason Vizcaino Dictated Date: 12/30/2023 16:02 ET Assigned Physician: Jason Vizcaino Reviewed and Electronically Signed By: Jason Vizcaino Signed Date: 12/30/2023 18:34 ET Workstation ID: [id number] Transcribed By: Self Edit Transcribed Date: 12/30/2023 [...] is recommended in 1 year. Mammo Location: [facility], [address] [place] [address], [address], . -------- FINAL REPORT -------- Dictated By: Jason Vizcaino Dictated Date: 12/30/2023 16:02 ET Assigned Physician: Jason Vizcaino Reviewed and Electronically Signed By: Jason Vizcaino Signed Date: 12/30/2023 18:34 ET Workstation ID: [id number] Transcribed By: Self Edit Transcribed Date: 12/30/2023 16:16 ET Tutu Moore MD IMG BI PROCEDURES Final R esult * Annual BMP Blood Test (12/07/2023) Pathologist [facility] Annual BMP Blood Test abstracted Historical Provider HEALTH MAINTENANCE Final Result * Cervical Cancer Screening: HPV (06/05/2023) [facility] Cervical Cancer Screening: HPV abstracted, negative Historical Provider HEALTH MAINTENANCE Final Result * HIV Screening (06/09/2007) [facility] HIV Screening abstracted Result [facility] Historical Provider HEALTH MAINTENANCE Final Result * Lipid panel (02/08/2001) [facility] LDL/HDL Ratio 2 1 - 4 Triglycerides 131 10 - 140 mg/dL Cholesterol 165 10 - 200 mg/dL HDL 76 32 - 96 mg/dL LDL Cholesterol 63 62 - 185 mg/dL Blood Venous blood specimen / Unknown Result [facility] Historical Provider LAB BLOOD ORDERABLES Dee l Result from Last 3 Months or Most Recently Relevant to Health Maintenance Insurance [facility] MEDIC[facility] Care Teams Mid Level Clinician Relationship Specialty Start Date End Date Tutu Moore MD [address] [place] [address] PCP - General 09/17/10
--- OUTSIDE RECORDS SUMMARY | 2025-01-02 11:17 | XMS_ITS | Encounter Summary ---
Author Organization [employer] Address [address] [facility] 7t [place] [address] Care Team Providers Care Radio Time Salesperson Name Role Phone Tutu Moore MD Primary Care Provider [phone] Encounter Details Date Type Department Care Team ([facility] st Contact Info) Description 10/15/2023 Orders Only [facility] [address] [place] [address] Tutu Moore MD [address] [place] [address] Obesity (BMI 30-39.9) Social History Tobacco Use [...] documented as of this encounter Care Teams Radio Time Salesperson Relationship Specialty Start Date End Date Tutu Moore MD [address] [place] [address] PCP - General Internal Medicine 02/23/18 documented as of this encounter
--- OUTSIDE RECORDS SUMMARY | 2025-01-02 11:17 | XMS_ITS | Encounter Summary ---
Author Organization [employer] Address [address] [facility] 7 [place] [address] Care Team Providers Care Lamination Inspector Name Role Phone Tutu Moore MD Primary Care Provider [phone] Encounter Details Date Type Department Care Team ([facility] st Contact Info) Description 10/21/2023 Orders Only [facility] CHC MED & PEDS [address] [place], [place] [phone] Tutu Moore MD [address] [place] [address] Obesity (BMI 30-39.9) Social History Tobacco Use [...] documented as of this encounter Care Teams Lamination Inspector Relationship Specialty Start Date End Date Tutu Moore MD [address] [place] [address] PCP - General Internal Medicine 02/23/18 documented as of this encounter
--- OUTSIDE RECORDS SUMMARY | 2025-01-02 11:17 | XMS_ITS | Encounter Summary ---
Author Organization [employer] Address [address] [facility] 7 [place] [address] Care Team Providers Care Digital Marketing Strategist Name Role Phone Tutu Moore MD Primary Care Provider [phone] Reason for Visit * Reason Comments Med Refill Encounter Details Date Type Department Care Team ([facility] Contact Info) Description 12/29/2024 Refill [facility] CHC MED & PEDS [address] [place], [place] [phone] Ttuu Moore MD [address] [place] [address] Dizziness and giddiness Social History Tobacco Use Types Packs/Day Years [...] as of this encounter Visit Diagnoses Diagnosis Dizziness and giddiness documented in this encounter Additional Health Concerns Assessment Noted Time PHQ-9 Depression Total Score: 14 025 11:09 AM EDT documented as of this encounter Care Teams Digital Marketing Strategist Relationship Specialty Start Date End Date Tutu Moore MD [address] [place] [address] PCP - General Internal Medicine 02/23/18 documented as of this encounter
--- OUTSIDE RECORDS SUMMARY | 2025-01-02 11:17 | XMS_ITS | Clinical Summary ---
Author Organization [facility] Address [address] [place] [address] Care Team Providers Care Licensed Esthetician Name Role Phone Unavailable Primary Care Provider [...] Encounters Date Type Department Care Team Description 12/27/2024 2:00 PM EST Office Visit [address] [phone] Mary Ferrari DDS 12/26/2024 4:20 PM EST Office Visit [address] [phone] Mary Ferrari DDS 11/18/2024 3:00 PM EDT Office Visit [address] [phone] Mary Ferrari DDS from Last 3 Months [...] Sign Reading Time Taken Comments Blood Pressure 118/74 12/27/2024 1:57 PM EST Pulse 87 12/27/2024 1:57 PM EST Temperature - - Respiratory Rate - - Oxygen Saturation - - Inhaled Oxygen Concentration - - Weight - - Height - - Body Mass Index - - Plan of Treatment Upcoming Encounters Date Type Department Care Team (Late st Contact Info) Description 01/05/2025 1:00 PM EST Office Visit [facility] [address] [place] [phone] Mary Ferrari DDS [address] [place] [address] Health Maintenance Due Date Last Done Comments Anxiety Screening 1977 HPV Screening (self-collect) 1977 HPV Screening 1977 Hepatitis C Screening 1977 Pap + HPV 1977 Tobacco Screening 1977 HIV Screening 1992 Relationship Safety Screening/Counseling 1992 CT Colonography 2022 Colonoscopy 2022 Colorectal Cancer Screening 2022 FIT/gFOBT 2022 Fecal DNA 2022 Flexible Sigmoidoscopy 2022 Alcohol and Drug Screen 02/24/2024 Depression Annual Screen 02/24/2024 [id number] ( season) 2024 021 Imm-Influenza (#1) 2024 12/16/2022, 1 , 11/28/2014, Additional history exists Dental Perio Charting 04/07/2025 04/05/2024 Dental Prophy 04/07/2025 04/05/2024 Dental BW 11/20/2025 11/18/2024, 04/05/2024 Dental Examination 11/20/2025 11/18/2024, 04/05/2024 Hypertension Screening (#1) 12/27/2025 Breast Cancer Screening (Mammogram) 12/28/2025 12/29/2023 Cervical Cancer Screening 06/11/2026 Pap Smear 06/11/2026 06/12/2023 Lipid Screening 11/18/2027 11/17/2022, 02/08/2001 Diabetes Screening 12/27/2027 12/26/2024, 1 , 11/17/2022, Additional history exists Dental FMX/Pano 04/07/2029 04/05/2024 Imm-DTaP/Tdap/Td (4 - Td or Tdap) 12/16/2032 12/16/2022, 11/10/2011, 06/22/2008 Imm-Hepatitis B Completed 06/04/2012, 11/24, 11/10/2011 Cervical Ablation/Cold-Knife Conization Discontinued Cervical Cryotherapy Discontinued Colposcopy Discontinued Excision/Leep Discontinued HPV Genotyping Discontinued Vaginal Pap Discontinued Vulvoscopy Discontinued Procedures Procedure Name Priority Date/Time Associated Diagnosis Comments CASE PRESENTATION SUBS DTL & EXTENSIVE TX PLN Routine 12/27/2024 2:00 PM EST Defective dental pentecostalism 5 (V) RESIN-BASED COMPOSITE - THREE SURFACES POSTERIOR Routine 12/27/2024 2:00 PM EST Defective dental pentecostalism 6 F(V) RESIN-BASED COMPOSITE ONE SURFACE ANTERIOR Routine 12/27/2024 2:00 PM EST Defective dental pentecostalism CASE PRESENTATION SUBS DTL & EXTENSIVE TX PLN Routine 12/26/2024 4:20 PM EST Caries 29 O RESIN-BASED COMPOSITE - ONE SURFACE POSTERIOR Routine 12/26/2024 4:20 PM EST Caries CASE PRESENTATION SUBS DTL & EXTENSIVE TX PLN Routine 11/18/2024 3:00 PM EDT Caries CARIES RISK ASSESSMENT & DOC FINDING HIGH RISK Routine 11/18/2024 3:00 PM EDT [facility]ies NUTRITIONAL COUNSELING CONTROL OF DENTAL DISEASE Routine 11/18/2024 3:00 PM EDT Caries ORAL HYGIENE INSTRUCTIONS Routine 11/18/2024 3:00 PM EDT Caries BITEWINGS - FOUR RADIOGRAPHIC IMAGES Routine 11/18/2024 3:00 PM EDT Defective dental pentecostalism Caries Full PERIODIC ORAL EVALUATION ESTABLISHED PATIENT Routine 11/18/2024 3:00 PM EDT [facility] INTRAORAL - COMP SERIES OF RADIOGRAPHIC IMAGES Routine 04/05/2024 3:00 PM EST Caries of enamel (incipient) Defective dental pentecostalism Caries PROPHYLAXIS - ADULT Routine 04/05/2024 3 :00 PM EST Caries Defective dental pentecostalism Caries of enamel (incipient) from Last 3 Months or Most Recently Relevant to Health Maintenance Insurance [place]
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
--- OUTSIDE RECORDS SUMMARY | 2025-01-02 11:17 | XMS_ITS | Encounter Summary ---
Author Organization [employer] Address [address] [facility] 7 [place] [address] Care Team Providers Care Commercial Fishing Vessel Operator Name Role Phone Tutu Moore MD Primary Care Provider [phone] Encounter Details Date Type Department Care Team ([facility] st Contact Info) Description 12/27/2024 Telephone [facility] [address] [place], [place] [phone] Tutu Moore MD [address] [place] [address] Social History Tobacco Use Types Packs/Day Years [...] encounter Miscellaneous Notes * Telephone Encounter - Tutu Moore MD - 12/27/2024 8:50 AM EST Pt was called. The results of the blood work were discussed. An urgent referral to Nephrology was placed. All questions answered. ED precautions ( Palpitations, SOB, Fever etc ) discussed. documented in this encounter Plan of Treatment Not on file documented as of this encounter Visit Diagnoses Not on filedocumented in this encounter Additional Health Concerns Assessment Noted Time PHQ-9 Depression Total Score: 14 025 11:09 AM EDT documented as of this encounter Care Teams Commercial Fishing Vessel Operator Relationship Specialty Start Date End Date Tutu Moore MD [address] [place] [address] PCP - General Internal Medicine 02/23/18 documented as of this encounter
--- OUTSIDE RECORDS SUMMARY | 2025-01-02 11:17 | XMS_ITS | Clinical Summary ---
Author Organization [employer] Address [address] [facility] 7t [place] [address] Care Team Providers Care Live In Housekeeper Nanny Name Role Phone Tutu Moore MD Primary Care Provider [phone] Allergies No known active allergies Medications buPROPion [...] 30 tablet 1 11/03/19 25 026 Active Wegovy 2.4 MG/0.75ML solution auto-injector Inject [...] 120 tablet 11 12/20/19 25 026 Active ondansetron (Zofran) 4 MG tabletIndicatio ns:Dizziness and giddiness TAKE 1 TABLET BY MOUTH EVERY 8 HOURS NEEDED FOR NAUSEA OR FOR VOMITING FOR UP TO 7 DAYS 18 tablet 1 12/30/19 25 Active cholecalciferol (Vitamin D-3) 1.25 MG (88440 UT) capsule TAKE 1 CAPSULE BY MOUTH [...] cleanup (will not trigger notification to Pharmacy)) methocarbamol (Robaxin) 750 MG tabletIndicatio ns:Muscle strain TAKE 1 TABLET (750 MG) BY MOUTH 4 TIMES DAILY FOR 10 DAYS. 40 tablet 11/04/19 25 025 Discontinued(Th erapy completed) ondansetron (Zofran) 4 MG tablet Take 1 tablet (4 mg) by mouth every 8 (eight) hours if needed for nausea or vomiting for up to 20 doses. 10 tablet 1 12/02/19 25 025 Discontinued meclizine (Antivert) 25 MG tabletIndicatio ns:Vertigo Take [...] Encounters Date Type Department Care Team Description 01/02/2025 9:00 AM EST Office Visit [facility] [address] [place] [address] Tutu Moore MD Hyponatremia (Primary Dx); Chronic migraine with aura without status migrainosus, not intractable 01/02/2025 Travel 12/30/2024 Telephone [facility] [address] [place] [address] Tutu Moore MD chart prep 12/29/2024 Refill [facility] [address] [place] [address] Tutu Moore MD Dizziness and giddiness 12/27/2024 Telephone [facility] [address] [place] [address] Tutu Moore MD 12/26/2024 9:00 AM EST Office Visit [facility] [address] [place] [address] Tutu Moore MD Hyponatremia (Primary Dx); Epigastric pain 12/26/2024 Orders Only [facility] [address] [place] [address] Tutu Moore MD 12/26/2024 Travel 12/23/2024 Orders Only [facility] [address] [place] [address] Tutu Moore MD Viral illness (Primary Dx); Hyponatremia 12/20/2024 Results Follow-Up [facility] [address] [place] [phone] Delores García RN Basic Metabolic Panel 12/19/2024 10:15 AM EDT Office Visit [facility] [address] [place] [address] Tutu Moore MD Hyponatremia (Primary Dx); Epigastric pain; Essential hypertension 12/19/2024 Orders Only [facility] [address] [place] [address] Tutu Moore MD Hyponatremia (Primary Dx) 12/19/2024 Travel 12/16/2024 Telephone [facility] [address] [place] [address] Tutu Moore MD CHART PREP 12/15/2024 Telephone [facility] [address] [place] [address] Tutu Moore MD Call Back Request 12/13/2024 Telephone [facility] [address] [place] [address] Tutu Moore MD triage 12/12/2024 11:30 AM EDT Office Visit [facility] [address] [place] [address] Catalina Nava MD Viral illness (Primary Dx); Chronic cluster headache, not intractable; Essential hypertension 12/12/2024 Travel 12/12/2024 Telephone [facility] [address] [place] [address] Tutu Moore MD Nurse Triage 12/05/2024 3:45 PM EDT Office Visit [facility] [address] [place] [address] Tutu Moore MD Vertigo (Primary Dx) 12/05/2024 Travel 12/01/2024 Telephone [facility] PEDS [address] [place] [address] Tutu Moore MD Care Coordination 12/01/2024 Refill [facility] [address] [place] [address] Tutu Moore MD 11/02/2024 3:40 PM EDT Office Visit [facility] [address] [place] [address] Eduard Simeon MD Vertigo (Primary Dx) 11/02/2024 Refill [facility] [address] [place] [address] Tutu Moore MD Muscle strain 11/02/2024 Travel 11/02/2024 Telephone [facility] [address] [place] [address] Tutu Moore MD Nurse Triage from Last [...] Pulse 91 01/02/2025 9:15 AM EST Temperature 36 C (96.8 F) 12/12/2024 11:33 AM EDT Respiratory Rate 20 01/02/2025 9:15 AM EST Oxygen Saturation 99% 01/02/2025 9:15 AM EST Inhaled Oxygen Concentration - - Weight 85.7 kg (189 lb) 01/02/2025 9:15 AM EST Height 163.8 cm (5' 4.5 ) 01/02/2025 9:15 AM EST Body Mass Index 31.94 01/02/2025 9:15 AM EST Plan of Treatment Health Maintenance Due Date Last Done Comments [...] 04/15/2025 04/15/2024 Depression Monitoring 06/19/2025 12/19/2024, 025 Disability Screening 12/19/2025 12/19/2024 Mammogram 12/28/2025 12/29/2023, 11/06/2023, 12/29/2023 Tobacco Screening 01/02/2026 01/02/2025 Zoster Vaccines (1 of 2) 10/12/2027 Lipid [...] Procedure Name Priority Date/Time Associated Diagnosis Comments OSMOLALITY (U) Routine 12/26/2024 10:08 AM EST BASIC METABOLIC PANEL Routine 12/26/2024 10:05 AM EST Viral illness SODIUM W/O CREATININE, RANDOM URINE Routine 12/23/2024 [...] Recently Relevant to Health Maintenance Results * Osmolality, Urine (12/26/2024 10:08 AM EST) OSMOLALITY URINE 452 373 - 1,093 mosm/kg [facility] 12/26/2024 10:0 8 AM EST 12/26/2024 1:59 PM EST us Tutu Moore MD LAB URINE ORDERABLES Final Result [facility] [address] [place] [address] [phone] * (ABNORMAL) Basic Metabolic Panel (12/26/2024 10:05 AM EST) Only the most recent of2 resultswithin the time period is included. Sodium 128(L) 135 - 145 mmol/L [facility] Potassium 4.1 3.3 - 5.1 mmol/L [facility] Chloride 99 96 - 108 mmol/L [facility] Carbon Dioxide 23 22 - 29 mmol/L [facility] Anion Gap 10(L) 12 - 20 [facility] Urea Nitrogen (BUN) 8(L) 9 - 16 mg/dL [facility] Creatinine, Serum 0.59 0.5 - 1.4 mg/dL [facility] Estimated Glomerular Filt Rate >60 [facility] Comment:Chronic Kidney Disea se: Estimated GFR < 60 mL/min/1.25d3Bxezlh Kidney Disease: Estimated GFR < 15 mL/min/1.73m2 Glucose 84 60 - 115 mg/dL [facility] Calcium 9.0 8.4 - 10.2 mg/dL [facility] Blood Venous blood specimen / Unknown 12/26/2024 10:05 AM EST 12/26/2024 2:06 PM EST us Tutu Moore MD LAB BLOOD ORDERABLES Final Result Performing Organization Address [facility] Co de Phone Number [facility] [address] [place] [phone] * Sodium Without creatinine, Random Urine (12/23/2024 9:00 AM EDT) Sodium Urine Random 69.0 mmol/L [facility] Urine Urine specimen obtained by clean catch procedure / Unknown 12/23/2024 9:00 AM EDT 12/23/2024 2:00 PM EDT us Tutu Moore MD LAB BLOOD ORDERABLES Final Result Performing Organization Address [facility] Co de Phone Number [facility] [address] [place] [phone] * TSH W/Reflex to FT4 (12/23/2024 8:59 AM EDT) TSH reflex Free T4 0.81 0.32 - 4.0 uIU/mL [facility] Blood Venous blood specimen / Unknown 12/23/2024 8:59 AM EDT 12/23/2024 2:00 PM EDT us Tutu Moore MD LAB BLOOD ORDERABLES Final Result Performing Organization Address [facility] Co de Phone Number [facility] [address] [place] [phone] * (ABNORMAL) Osmolality, Serum (12/23/2024 8:59 AM EDT) [facility] Osmolality (Serum) 270(L) 281 - 305 mosm/kg [facility] Blood Venous blood specimen / Unknown 12/23/2024 8:59 AM EDT 12/23/2024 2:00 PM EDT us Tutu Moore MD LAB BLOOD ORDERABLES Final Result Performing Organization Address [facility] de Phone Number [facility] [address] [place] [phone] * Mr Brain w/ and w/o Contrast (12/19/2024) Anatomical Region Laterality Modality Brain Magnetic Resonan ce us Tutu Moore MD IMG MRI PROCEDURES Final Re sult * POCT Rapid Influenza B SOOD ID NOW (12/12/2024 2:23 PM EDT) [facility] Influenza B Negative Negative, Indeterminate [facility] QC Media Lot # [id number] [facility] Lot# Expiration Date [facility] Swab 12/12/2024 2:23 PM EDT us Catalina Nava MD POINT OF CARE TEST ENTER/EDIT OR DERABLES Final Result Performing Organization Address [facility] Co de Phone Number [facility] [address] [place] [phone] * POCT Rapid Influenza A SOOD ID NOW (12/12/2024 2:23 PM EDT) [facility] Influenza A Negative Negative, Indeterminate [facility] QC Media Lot # [id number] [facility] Lot# Expiration Date [facility] Swab 12/12/2024 2:23 PM EDT Catalina Nava MD POINT OF CARE TEST ENTER/EDIT OR DERABLES Final Result [facility] [address] [place] [phone] [phone] * POCT Rapid Covid-19 BinaxNOW (12/12/2024 12:22 PM EDT) Rapid COVID Ag Negative QC Media Lot # [id number] Lot# Expiration Date Swab 12/12/2024 12:2 2 PM EDT Catalina Nava MD POINT OF CARE TEST ENTER/EDIT OR DERABLES Final Result * Mammography (12/29/2023 11:01 AM EST) Anatomical Region Laterality Modality Other Historical Provider HEALTH MAINTENANCE Final Result * Pap Smear (06/12/2023) Pap Smear 1. NILM 1. NILM Swab 06/12/2023 [facility] Provider LAB CYTOLOGY ORDERABLES F inal Result * gFOBT (06/05/2023 9:49 AM EDT) Historical Provider POINT OF CARE TEST ENTER/ EDIT ORDERABLES Final Result * Lipid Panel, Standard (11/17/2022 9:54 AM EDT) Triglycerides 113 <150 mg/dL [facility] Comment:Desirable Triglyceri de: less than 150 mg/dLBorderline High Triglyceride 150-199 mg/dLHigh Triglyceride: 200-499 mg/dLVery High Triglyceride: greater than or equal to 5OO mg/dL Cholesterol 149 <200 mg/dL [facility] Comment:Desirable Cholestero l: less than 200 mg/dLBorderline High Cholesterol: 200-239 mg/dLHigh Cholesterol: greater than 239 mg/dL LDL Cholesterol Calculated 63 <100 mg/dL [facility] Comment:Desirable LDL: less than 100 mg/dLNear Optimal/Above Optimal LDL: 110- 129 mg/dLBorderline High LDL: 130-159 mg/dLHigh LDL: 160-189 mg/dLVery High LDL: greater than or equal to 190 mg/dL HDL Cholesterol 64 >40 mg/dL [facility] Comment:Desirable HDL: great er than 40 mg/dL Note: This HDL assay may give artificially low results in patients with liver disease. Blood Venous blood specimen / Unknown 11/17/2022 9:54 AM EDT 11/17/2022 2:06 PM EDT Tutu Moore MD LAB BLOOD ORDERABLES Final Result [facility] [address] [place] [phone] from Last 3 Months or Most Recently Relevant to Health Maintenance [place] [place] [address] , [address] [id number] MEDICARE [employer] Care Teams Live In Housekeeper Nanny Relationship Specialty Start Date End Date Tutu Moore MD [address] [place] [phone] PCP - General Internal Medicine 02/23/18
--- OUTSIDE RECORDS SUMMARY | 2025-01-02 11:17 | XMS_ITS | Encounter Summary ---
Author Organization [employer] Address [address] [facility] [address] 7[address] [place] [address] Care Team Providers Care Medical Education Manager Name Role Phone Tutu Moore MD Primary Care Provider [phone] Encounter Details Date Type Department Care Team ([facility] st Contact Info) Description 12/31/2023 Orders Only [facility] & PEDS [address] [place], [place] [phone] Provider, MD [place]otah Social History Tobacco Use [...] documented as of this encounter Care Teams Medical Education Manager Relationship Specialty Start Date End Date Tutu Moore MD [address] [place] [phone] PCP - General Internal Medicine 02/23/18 documented as of this encounter
--- OUTSIDE RECORDS SUMMARY | 2025-01-02 11:17 | XMS_ITS | Encounter Summary ---
Author Organization [employer] Address [address] [place] [phone] Care Team Providers Care Band Ripsaw Operator Name Role Phone Tutu Moore MD Primary Care Provider [phone] Reason for Visit * Reason Comments Med Refill Encounter Details Date Type Department Care Team ([facility] st Contact Info) Description 04/27/2022 Refill [facility] [address] [place], [place] [phone] Tutu Moore MD [address] [place] [address] Chronic pain of right knee (Primary Dx); [...] cause documented in this encounter Care Teams Band Ripsaw Operator Relationship Specialty Start Date End Date Tutu Moore MD [address] [place] [address] PCP - General Internal Medicine 02/23/18 documented as of this encounter
--- OUTSIDE RECORDS SUMMARY | 2025-01-02 11:17 | XMS_ITS | Encounter Summary ---
Author Organization [employer] Address [address] [facility] 7 [place] [address] Care Team Providers Care Business Intelligence Etl Developer Name Role Phone Tutu Moore MD Primary Care Provider [phone] Reason for Visit * Reason Comments Med Refill Encounter Details Date Type Department Care Team ([facility] st Contact Info) Description 11/01/2022 Refill [facility] [address] [place] [address] Quin Rapp MD [address] [place] [address] Hypertension, unspecified type Social History Tobacco Use [...] as of this encounter Care Teams Business Intelligence Etl Developer Relationship Specialty Start Date End Date Tutu Moore MD [address] [place] [address] PCP - General Internal Medicine 02/23/18 documented as of this encounter
--- OUTSIDE RECORDS SUMMARY | 2025-01-02 11:17 | XMS_ITS | Encounter Summary ---
Author Organization [employer] Address [address] [place] [address] Care Team Providers Care Production Planning Supervisor Name Role Phone Tutu Moore MD Primary Care Provider [phone] Reason for Visit * Reason Comments Med Refill Encounter Details Date Type Department Care Team ([facility] st Contact Info) Description 11/01/2022 Refill [facility] PEDS [address] [place], [place] [phone] Tutu Moore MD [address] [place] [address] Social History Tobacco Use Types Packs/Day Years [...] as of this encounter Care Teams Production Planning Supervisor Relationship Specialty Start Date End Date Tutu Moore MD [address] [place] [address] PCP - General Internal Medicine 02/23/18 documented as of this encounter
--- OUTSIDE RECORDS SUMMARY | 2025-01-02 11:17 | XMS_ITS | Encounter Summary ---
Author Organization [employer] Address [address] [place] [address] Care Team Providers Care Campaign Advisor Name Role Phone Tutu Moore MD Primary Care Provider [phone] Encounter Details Date Type Department Care Team (Late st Contact Info) Description 11/02/2023 Abstract [facility]S [address] [place], [place] [phone] Lenin [place], [place] Social History Tobacco Use Types Packs/Day [...] documented as of this encounter Care Teams Campaign Advisor Relationship Specialty Start Date End Date Tutu Moore MD [address] [place] [address] PCP - General Internal Medicine 02/23/18 documented as of this encounter
--- OUTSIDE RECORDS SUMMARY | 2025-01-02 11:17 | XMS_ITS | Encounter Summary ---
Author Organization [employer] Address [address] [facility] 7t [place] [address] Care Team Providers Care Kitchen And Counter Worker Name Role Phone Tutu Moore MD Primary Care Provider [phone] Encounter Details Date Type Department Care Team ([facility] st Contact Info) Description 11/03/2023 Orders Only [facility] [address] [place] [address] Provider, MD Dakotah Social History Tobacco Use [...] documented as of this encounter Care Teams Kitchen And Counter Worker Relationship Specialty Start Date End Date Tutu Moore MD [address] [place] [address] PCP - General Internal Medicine 02/23/18 documented as of this encounter
--- OUTSIDE RECORDS SUMMARY | 2025-01-02 11:17 | XMS_ITS | Encounter Summary ---
Author Organization [employer] Address [address] [facility] 7t [place] [address] Care Team Providers Care Research Technician Name Role Phone Tutu Moore MD Primary Care Provider [phone] Encounter Details Date Type Department Care Team ([facility] st Contact Info) Description 09/01/2023 Orders Only [facility] MED & PEDS [address] [place], [place] [phone] Tutu Moore MD [address] [place] [address] Social History Tobacco Use Types Packs/Day Years [...] documented as of this encounter Care Teams Research Technician Relationship Specialty Start Date End Date Tutu Moore MD [address] [place] [address] PCP - General Internal Medicine 02/23/18 documented as of this encounter
--- OUTSIDE RECORDS SUMMARY | 2025-01-02 11:17 | XMS_ITS | Encounter Summary ---
Author Organization [employer] Address [address] [address] Care Team Providers Care Card Cutter Name Role Phone Tutu Moore MD Primary Care Provider [phone] Reason for Visit * Reason Onset Date Comments chart prep 12/30/2024 Encounter Details Date Type Department Care Team ([facility] st Contact Info) Description 12/30/2024 Telephone [facility] MED & PEDS [address] [place] [address] Tutu Moore MD [address] [place] [address] chart prep Social History Tobacco Use Types Packs/Day Years [...] documented as of this encounter Care Teams Card Cutter Relationship Specialty Start Date End Date Tutu Moore MD [address] [place] [address] PCP - General Internal Medicine 02/23/18 documented as of this encounter
--- OUTSIDE RECORDS SUMMARY | 2025-01-02 11:17 | XMS_ITS | Encounter Summary ---
Author Organization [employer] Address [address] [place] [address] [address] [place] [address] Care Team Providers Care Surface Lay Out Technician Name Role Phone Tutu Moore MD Primary Care Provider [phone] Encounter Details Date Type Department Care Team ([facility] st Contact Info) Description 11/21/2022 Orders Only [facility] MED [facility] PEDS [address] [place], [place] [phone] Tutu Moore MD [address] [place] [address] Obesity (BMI 30-39.9) (Primary Dx) Social History [...] documented as of this encounter Care Teams Surface Lay Out Technician Relationship Specialty Start Date End Date Tutu Moore MD [address] [place] [phone] PCP - General Internal Medicine 02/23/18 documented as of this encounter
--- OUTSIDE RECORDS SUMMARY | 2025-01-02 11:18 | XMS_ITS | Encounter Summary ---
Author Organization [employer] Address [address] [facility] 7t [place] [address] Care Team Providers Care Supervisor Inspection And Testing Name Role Phone Tutu Moore MD Primary Care Provider [phone] Encounter Details Date Type Department Care Team ([facility] st Contact Info) Description 07/16/2023 Telephone [facility] MED[facility] [address] [place] [address] Tutu Moore MD [address] [place] [address] Social History Tobacco Use Types Packs/Day Years [...] as of this encounter Care Teams Supervisor Inspection And Testing Relationship Specialty Start Date End Date Tutu Moore MD [address] [place] [address] PCP - General Internal Medicine 02/23/18 documented as of this encounter
--- OUTSIDE RECORDS SUMMARY | 2025-01-02 11:18 | XMS_ITS | Encounter Summary ---
Author Organization [employer] Address [address] [facility] 7 [place] [address] Care Team Providers Care Auto Locator Name Role Phone Tutu Moore MD Primary Care Provider [phone] Reason for Visit * Reason Onset Date Comments Call Back Request 07/06/2023 Encounter Details Date Type Department Care Team ([facility] st Contact Info) Description 07/06/2023 Telephone [facility] MEDICINE [address] [place] [address] Tutu Moore MD [address] [place] [address] Call Back Request Social History Tobacco Use [...] as of this encounter Care Teams Auto Locator Relationship Specialty Start Date End Date Tutu Moore MD [address] [place] [address] PCP - General Internal Medicine 02/23/18 documented as of this encounter
[2025-01-02 14:58] LABS: Anion Gap 10 (12-20); Blood Urea Nitrogen 11 mg/dL (9-16); Calcium 9.0 mg/dL (8.4-10.2); Carbon Dioxide 24 mmol/L (22-29); Chloride 102 mmol/L (96-108); Estimated Glomerular Filt Rate > 60; Potassium 4.2 mmol/L (3.3-5.1); Sodium 132 mmol/L (135-145)
== END 2025-01-02 09:54 | disposition home or self-care (01) ==
LOC: HO.CHCLDS 09:53
PROVIDERS: Visit Provider Internal Medicine
DX: E87.1 Hypo-osmolality and hyponatremia (principal)
CPT/HCPCS: 36415; 80048

== ENCOUNTER 2025-01-06 15:34 | Outpatient (AMB) | payer OTHER, MEDICARE, MEDICAID, SELFPAY ==
[2025-01-06 15:33] VITALS: BP 92/62; PULSE 86; O2SAT 98; BMI 31.3
--- NOTE | 2025-01-06 15:33 | HO.NEPHOV ---
Vital Signs 01/06/25 15:33 Height 5 ft 5 in Weight 188 lb BMI 31.3 BP 92/62 Blood Pressure Location Rt brachial Position Sitting Pulse 86 Pulse Source Pulse Oximeter Pulse Oximetry (%) 98 Oxygen Delivery Method Room Air Intake Visit Reasons: ENP Hyponatremia,Elevate U. Osmolality Human Resources Operations Manager Required: No Accompanied by: Spouse Allergies No Known Allergies (No Known Allergies*) Allergy (Verified 01/06/25 15:36) Medication List - Last Reconciled 01/06/25 by Rory Larson MD acetaminophen ER (Tylenol 8 Hour) 650 mg PO Q8H bupropion HCl XL 300 mg PO QAM clonazepam 1 mg PO DAILY PRN clonidine HCl 0.1 mg PO BID mecobalamin (vitamin B12) 1,000 mcg sublingual DAILY nifedipine ER 30 mg PO QAM omeprazole 20 mg PO BID PRN oxcarbazepine 300 mg PO BID propranolol 20 mg PO BID quetiapine 100 mg PO BEDTIME solifenacin 10 mg PO QAM sucralfate 1 g PO QID temazepam 30 mg PO BEDTIME HPI Comments Details: The patient is a 49-year-old female presenting with hyponatremia. The low sodium levels were first noticed on June 02, and the patient has experienced dizziness, confusion, and difficulty reading since then. The sodium level improved from 128 to 132 mEq/L after medication adjustments, but the patient continues to experience nausea and diarrhea. The patient reports a history of low blood pressure, which was recorded at 110/60 mmHg during the visit. She has experienced tachycardia with a heart rate of 147 bpm at rest, particularly worsening at night. The patient has a history of kidney stones, which required stent placement approximately a year and a half ago. She was treated with antibiotics for a high fever and infection related to the stones. The patient is currently taking clonidine and propranolol for anxiety, which may contribute to her low blood pressure. She also reports premenopausal symptoms, including hot flashes, for which she was prescribed clonidine and Effexor. Review of Systems Const Denies fever(s) and Denies weight loss Card Denies chest pain Resp Denies cough and Denies hemoptysis GI Denies abdominal pain, Denies diarrhea and Denies nausea Musc Denies back pain Neuro Denies focal weakness Physical Exam Vital Signs: Last Vital Signs Pulse 86 01/06/25 15:33 BP 92/62 01/06/25 15:33 Pulse Ox 98 01/06/25 15:33 Oxygen Delivery Method Room Air 01/06/25 15:33 BMI result Body Mass Index 31.3 Comfortable Neck supple no JVD. Lungs entry equal no rales. Heart S1-S2 heard no gallop or rub. Abdomen soft nontender. Neuro alert awake oriented. No asterixis. Extremities no edema. Results Reviewed Nephrology Results: Hgb, (12.0-16.0) 12.7 g/dl 11/17/22 WBC, (4.8-10.8) 10.2 X10*3/uL 11/17/22 Plt Count, (160-400) 171 X10*3/uL 11/17/22 Sodium, (135-145) 132 mmol/L L 01/02/25 Potassium, (3.3-5.1) 4.2 mmol/L 01/02/25 Chloride, (96-108) 102 mmol/L 01/02/25 Carbon Dioxide, (22-29) 24 mmol/L 01/02/25 BUN, (9-16) 11 mg/dL 01/02/25 Creatinine, (0.5-1.4) 0.59 mg/dL 01/02/25 Calcium, (8.4-10.2) 9.0 mg/dL 01/02/25 Assessment & Plan Assessment & Plan (1) Hyponatremia: Code(s): E87.1 - Hypo-osmolality and hyponatremia Category: Medical Plan 1. Hyponatremia Due to Non osmotic ADH release. Medications could be contributing as well - Continue monitoring sodium levels and adjust medications as needed. - workup initiated Check cortisol and thyroid function to rule out other causes of hyponatremia. - Encourage electrolyte-rich fluids like Pedialyte instead of water. 2. Low Blood Pressure - Monitor blood pressure regularly and adjust antihypertensive medications accordingly. - Consider reducing or discontinuing nifedipine if blood pressure remains low. 3. Tachycardia - Monitor heart rate and evaluate the need for medication adjustments. 4. Kidney Stones - Follow up on kidney function and consider imaging if symptoms recur. 5. Anxiety - Continue current medications and evaluate their impact on blood pressure. Orders: Orders Basic Metabolic Panel 1 Week E87.1 - Hypo-osmolality and hyponatremia TSH reflex Free T4 1 Week E87.1 - Hypo-osmolality and hyponatremia Cortisol, Free 1 Week E87.1 - Hypo-osmolality and hyponatremia Medications: New ondansetron 4 mg PO Q8H PRN 30 tabs 0RF nausea and vomiting Coding Level of Care Code New Pt Level 4 (08494) Diagnoses Hyponatremia E87.1
--- OUTSIDE RECORDS SUMMARY | 2025-01-07 00:41 | XMS_ITS | Continuity of Care Document ---
Author Organization [facility] Address [address] [place] [address] Care Team Providers Care Tour Production Supervisor Name Role Phone STEPHAN CHAVEZ Referring Provider Unavailabl e Unavailable Referring Provider [phone] [facility] Primary Care Provider Assessment No assessment recorded. Plan of Treatment Reminders Order Date Submit Date Provider Last Modified By Organization Details Last Modified Time Details Appointments BOTOX 026 01:00PM Manuel John MD PhD Not available Not available Not available Lab None recorde d. Referral None recorde d. Procedures None recorde d. Surgeries None recorde d. Imaging None recorde d. Medication Orders None recorde d. Patient TargetsNo targets recorded. Patient InstructionsNo instructions recorded. Reason for Referral None Reported. Procedures Surgical History Date Name Laterality Status Provider Name and Address Organization Details Recorded Time 5 DATA REVIEW completed Manuel John MD [address] [place], [place] [address], [address], [facility] 12/28/2024 17:28:59 5 botulinum injection completed Manuel John MD [address] [place], [place] [address], [address], [facility] 11/24/2024 14:35:45 5 botulinum injection completed Manuel John MD [address] [place], [place] [address], [address], [facility] 06/29/2024 14:23:36 5 botulinum injection completed Manuel John MD [address] [place] [address] [place], [address], [facility] [employer] 03/30/2024 14:55:31 DATA REVIEW completed Manuel John MD [address] [place] [address] [place], [address], [facility] 02/29/2024 14:32:34 Imaging Results None recorded. [...] Time Tobacco Smoking Status Never Smoker Flor farr MA [facility]rology [facility] 09/07/2023 09:38:49 What Is Your Level Of Caffeine Consumption? Occasional Information not available 09/07/2023 What Is The Highest Grade Or Level Of School You Have Completed Or The Highest Degree You Have Received? [id number] Information not available 09/07/2023 Which Of Your [...] History Condition Response Vitamin D Deficiency Y High Blood Pressure or Hypertension Y Vitamin B12 deficiency Y Headaches Y Asthma Y Gynecological HistoryNo gynecological history recorded. 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 74 497311 G24.3 Facial spasm 13470642 G5 1.33 Health Concerns Section Related Observation LastModified by Organization Detai ls LastModified Time None Recorded Concern Status LastModified by Organization Details LastModified Time None Recorded Payers Encounter Date Sequence Insurance Name Policy Number Policy Carrillo Covered Member ID Carrillo Member ID Guarantor Name 11/24/2024 1 [facility] [id number] 1 Pema Hightowertiz [id number] Pema Pena 11/24/2024 2 [place] [facility] Pema Pena [id number] Pema Pena Notes Date Note Type Note Provider Name and Address Organization Details Recorded Time 11/24/2024 text/html Follow-up for Botox injections for [...] help. I made the anterior injections more symmetric.>>>>>>>> >>>> June 29, 2024 BOTOX #2worked well for headaches: Using ibuprofen just once per week for headache versus daily headache before the resumption of Botox.Back and upper shoulder pain better two. There is some residual right-sided tightness.Yet, she decides she wants the same injections.Same injections were done with these two changes:RIGHT medial scapular border: Omitted as there was no referral.Temporali s bilateral additional (inadvertent) 5 unit injection and so on left 10 unit medial anterior temporalis injection was omitted.>>>>>>>>>> >> March 30, 2024 BOTOX #1 (since November 28, 2016)We follow the amount and locations from chart note on Botox procedure November 28, 2016.Except: omitted SCM and lower trap edge -- no referral. Manuel John MD [address] [place] [address] [place], [address], [facility] 11/24/2024 14:37:58 OBGyn Episode No OBEpisode recorded.
--- OUTSIDE RECORDS SUMMARY | 2025-01-07 00:41 | XMS_ITS | Data Portability ---
Author Organization [facility] [employer] [employer] Address [address] [place] [address] [place] [address] Care Team Providers Care Safety Attendant Name Role Phone STEPHAN CHAVEZ Referring Provider Unavailabl e Unavailable Referring Provider [facility] Primary Care Provider [phone] Assessment Encounter Date Assessment Date Assessment LastModified [...] topiramate, through summer 2016; Headache morbidity resolution, ~5328-9527, for unknown reasons; Return of headaches causing [...] By Organization Details Last Modified Time 02/29/2024 [id number] PREVIOUS DISCUSS IONS >>>>>>>>>>>>>BOTOX PROCEDURE 11/28/2016 300 [...] minutes mrossen Not available 02/29/2024 14:38:06 12/28/2024 [id number] PREVIOUS DISCUSS IONS >>>>>>>>>>>>>BOTOX PROCEDURE 11/28/2016 300 [...] Time DATA REVIEW completed Manuel John MD [address] [place] [address] [place], [address], [facility] 12/28/2024 17:28:59 5 botulinum injection completed Manuel John MD [address] [place] [address] [place], [address], [facility] 11/24/2024 14:35:45 5 botulinum injection completed Manuel John MD [address] [place] [address] [place], [address], [facility] 06/29/2024 14:23:36 5 botulinum injection completed Manuel John MD [address] [place] [address] [place], [address], [facility] 03/30/2024 14:55:31 5 DATA REVIEW completed Manuel John MD [address] [place] [address] [place], [address], [facility] 02/29/2024 14:32:34 Imaging Results None recorded. [...] Never Smoker [facility] 09/07/2023 09:38:49 What Is Your Level Of Caffeine Consumption? Occasional Information not available 09/07/2023 What Is The Highest Grade Or Level Of School You Have Completed Or The Highest Degree You Have Received? [id number] Information not available 09/07/2023 Which Of Your [...] Response High Blood Pressure or Hypertension Y Asthma Y Vitamin D Deficiency Y Vitamin B12 deficiency Y Headaches Y Gynecological HistoryNo gynecological history recorded. Obstetrics History GPAL:G 0 P 0 0 0 0 Past Encounters Encounter ID Performer Location Encounter Start Date Encounter Closed Date Diagnosis/Indication Diagnosis SNOMED-CT Code Diagnosis ICD10 Code Diagnosis IMO Codes Diagnosis Note [id number] Manuel John MD [facility] [address] [place] [address] [place] [address] 09/07/2023 09:04:05 09/07/2023 10:39:10 Migraine without aura 47053824 G43.009 [id number] Manuel John MD [facility] [address] [place] [address] [place] [address] 02/29/2024 13:54:07 02/29/2024 16:36:50 Migraine without aura 73656603 G43.009 [id number] Manuel John MD [facility] [address] [place] [address] [place] [address] 03/30/2024 13:38:53 03/30/2024 15:53:29 Primary torsion dystonia 34130057 G24.1 Spasmodic torticollis 74 160786 G24.3 Facial spasm 25952500 G5 1.33 [id number] Manuel John MD [facility] [address] [place] [address] [place] [address] 06/29/2024 12:08:43 06/29/2024 15:08:16 Primary torsion dystonia 50717464 G24.1 Spasmodic torticollis 74 810980 G24.3 Facial spasm 04754037 G5 1.33 [id number] Manuel John MD [facility] [address] [place] [address] [place] [address] 11/24/2024 12:53:41 11/30/2024 12:49:14 Primary torsion dystonia 76141566 G24.1 Spasmodic torticollis 74 029557 G24.3 Facial spasm 49618395 G5 1.33 [id number] Manuel John MD [facility] [address] [place] [address] [place] [address] 12/28/2024 15:00:53 01/03/2025 16:17:57 Migraine without aura 12500231 G43.009 Health Concerns Section Related Observation LastModified by Organization Detai ls LastModified Time None Recorded Concern Status LastModified by Organization Details LastModified Time None Recorded Advance Directives Directive None Recorded Payers Insurance Date Sequence Insurance Name Policy Number Policy Carrillo Covered Member ID Carrillo Member ID Guarantor Name 01/03/2025 1 [facility] [id number] 1 Pema Pena [id number] Pema Pena 09/07/2023 2 [place] [facility] Pema Pena [id number] Pema Pena 12/27/2024 2 [place] [facility] Pema Pena [id number] Pema Pena Notes Date Note Type Note [...] jobs. 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 She was working in going to [employer] through ~mid 2022. 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 She is on the computer much [...] her headaches. 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 She likes the idea philosophically I d never put my mother in a custodial. She continues on Topamax which she restarted [...] Baclofen also cause tiredness. Manuel John MD [address] [place] [address] [place], [address], [facility] 02/29/2024 14:38:35 03/30/2024 text/html Follow-up for Botox injections for muscle spasm triggering shoulder pain, neck pain and headache.-She is accompanied by her . >>>>>>>>>>>> BOTOX #1 (since November 28, 2016)We follow the amount and locations from chart note on Botox procedure November 28, 2016.Except: omitted SCM and lower trap edge -- no referral. Manuel John MD [address] [place] [address] [place], [address], [facility] 03/30/2024 15:46:16 06/29/2024 text/html Follow-up for [...] edge -- no referral. Manuel John MD [address] [place] [address] [place], [address], [facility] [employer] 06/29/2024 14:24:11 11/24/2024 text/html Follow-up for Botox [...] edge -- no referral. Manuel John MD [address] [place] [address] [place], [address], [facility] 11/24/2024 14:37:58 12/28/2024 text/html Neurology follow-up for [...] not sufficient. She presented to [facility] ER December 13, 2024 where hyponatremia [...] jobs. 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 She was working in going to [employer] through ~mid 2022. 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 She is on the computer much [...] her headaches. 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 She likes the idea philosophically I d never put my mother in a custodial. She continues on Topamax which she restarted [...] Baclofen also cause tiredness. Manuel John MD [address] [place] [address], [place], [address], [facility] 12/28/2024 18:55:02 OBGyn Episode No OBEpisode recorded.
--- OUTSIDE RECORDS SUMMARY | 2025-01-07 00:41 | XMS_ITS | Continuity of Care Document ---
Author Organization [facility] Address [address] [place] [address] Care Team Providers Care Handling Tech Name Role Phone STEPHAN CHAVEZ Referring Provider Unavailabl e Unavailable Referring Provider [phone] [facility] Primary Care Provider Assessment Encounter Date [...] By Organization Details Last Modified Time 12/28/2024 [id number] PREVIOUS DISCUSS IONS >>>>>>>>>>>>>BOTOX PROCEDURE 11/28/2016 300 [...] Time DATA REVIEW completed Manuel John MD [address] [place], [place] [address], [address], [facility] 12/28/2024 17:28:59 botulinum injection completed Manuel John MD [address] [place] [address], [place], [address], [facility] 11/24/2024 14:35:45 5 botulinum injection completed Manuel John MD [address] [place] [address] [place], [address], [facility] 06/29/2024 14:23:36 5 botulinum injection completed Manuel John MD [address] [place] [address] [place], [address], [facility] 03/30/2024 14:55:31 5 DATA REVIEW completed Manuel John MD [address] [place] [address] [place], [address], [facility] 02/29/2024 14:32:34 Imaging Results None recorded. [...] LastModified Time Tobacco Smoking Status Never Smoker [facility] 09/07/2023 09:38:49 What Is Your Level Of Caffeine Consumption? Occasional Information not available 09/07/2023 What Is The Highest Grade Or Level Of School You Have Completed Or The Highest Degree You Have Received? [id number] Information not available 09/07/2023 Which Of Your [...] ICD10 Code Diagnosis IMO Codes Diagnosis Note [id number] Manuel John MD [facility] [address] [place] [address] [place] [address] 12/28/2024 15:00:53 01/03/2025 16:17:57 Migraine without aura 29520296 G43.009 Health Concerns Section Related Observation LastModified by Organization Detai ls LastModified Time None Recorded Concern Status LastModified by Organization Details LastModified Time None Recorded Payers Encounter Date Sequence Insurance Name Policy Number Policy Carrillo Covered Member ID Carrillo Member ID Guarantor Name 12/28/2024 1 [employer] [facility] [employer] [id number] 1 Pema Pena [id number] Pema Pena 12/28/2024 2 [place] [facility] Pema Pena [id number] Pema Pena Notes Date Note Type Note [...] This was not sufficient. She presented to [facility] ER December 13, 2024 where hyponatremia was [...] father and she needed to go to [place] where she stayed for 9 months. She supposes that the Botox worked ideally as it had previously but she does not remember. In any case, she does not remember headaches bothering her particularly in [place] maybe it was the adrenaline. 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 She is on the computer much of [...] her headaches. 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 She likes the idea philosophically I d never put my mother in a halfway. She continues on Topamax which she restarted [...] Baclofen also cause tiredness. Manuel John MD [address] [place] [address] [place], [address], [facility] 12/28/2024 18:55:02 OBGyn Episode No OBEpisode recorded.
--- OUTSIDE RECORDS SUMMARY | 2025-01-07 00:41 | XMS_ITS | Clinical Summary ---
Author Organization [facility] Address [address] [place] [address] Phone Care Team Providers Care Safety Coordinator Name Role Phone Tutu Moore MD Primary Care Provider [phone] Allergies No known active allergies Medications POTASSIUM [...] - 12/19/2024 11:59 PM EDT Hospital Encounter [facility] MRI [address] [place] [address] Dizziness and giddiness Discharge Disposition: Home or Self Care 11/01/2024 Telephone Bariatric Surgery - [place] [address] [facility] [address] [facility] [place] [phone] Diamond Li MD from Last 3 Months Immunizations Immunization Administration Dates Next Due Hepatitis B (Rmlalbv-O-Vfvku , Recombivax HB-Adult) 19yo and older 06/04/2012,12/19/2011,11/10/2011 [...] Date Site/Laterality Comments GASTRIC BYPASS 09/2004 PROCEDURE: [place] GASTRIC RSTCV W/BYP W/SM INT RCNSTJ LIMIT ABSRPJ OTHER SURGICAL HISTORY 2013 PROCEDURE: [place] LAPS GASTRIC RESTRICTIVE PROCEDURE PLACE DEVICE; COMMENT: [...] AM EST Office Visit Bariatric Surgery - [address] [place] [address] Diamond Li MD [address] [place] [address] Health Maintenance Due Date Last Done [...] Signed Date: 12/23/2024 08:20 ET Workstation ID: [id number] Transcribed By: Self Edit Transcribed Date: 12/23/2024 [...] Signed Date: 12/23/2024 08:20 ET Workstation ID: [id number] Transcribed By: Self Edit Transcribed Date: 12/23/2024 [...] is recommended in 1 year. Mammo Location: [facility], [address] [place] [address], [address], . -------- FINAL REPORT -------- Dictated By: Jason Vizcaino Dictated Date: 12/30/2023 16:02 ET Assigned Physician: Jason Vizcaino Reviewed and Electronically Signed By: Jason Vizcaino Signed Date: 12/30/2023 18:34 ET Workstation ID: [id number] Transcribed By: Self Edit Transcribed Date: 12/30/2023 [...] is recommended in 1 year. Mammo Location: [facility], [address] [place] [address], [address], . -------- FINAL REPORT -------- Dictated By: Jason Vizcaino Dictated Date: 12/30/2023 16:02 ET Assigned Physician: Jason Vizcaino Reviewed and Electronically Signed By: Jason Vizcaino Signed Date: 12/30/2023 18:34 ET Workstation ID: [id number] Transcribed By: Self Edit Transcribed Date: 12/30/2023 16:16 ET Tutu Moore MD IMG BI PROCEDURES Final R esult * Annual BMP Blood Test (12/07/2023) Pathologist [facility] Annual BMP Blood Test abstracted Historical Provider HEALTH MAINTENANCE Final Result * Cervical Cancer Screening: HPV (06/05/2023) [facility] Cervical Cancer Screening: HPV abstracted, negative Historical Provider HEALTH MAINTENANCE Final Result * HIV Screening (06/09/2007) [facility] HIV Screening abstracted Result [facility] Historical Provider HEALTH MAINTENANCE Final Result * Lipid panel (02/08/2001) [facility] LDL/HDL Ratio 2 1 - 4 Triglycerides 131 10 - 140 mg/dL Cholesterol 165 10 - 200 mg/dL HDL 76 32 - 96 mg/dL LDL Cholesterol 63 62 - 185 mg/dL Blood Venous blood specimen / Unknown Result [facility] Historical Provider LAB BLOOD ORDERABLES Dee l Result from Last 3 Months or Most Recently Relevant to Health Maintenance Insurance [facility] MEDICARE Care Teams Safety Coordinator Relationship Specialty Start Date End Date Tutu Moore MD [address] [place] [address] PCP - General 09/17/10
== END 2025-01-06 16:02 | disposition home or self-care (01) ==
LOC: HO.HKA 15:34
PROVIDERS: PCP Internal Medicine; Visit Provider Internal Medicine Hypertension Specialist
DX: E87.1 Hypo-osmolality and hyponatremia (principal)
CPT/HCPCS: 99204

== ENCOUNTER 2025-01-13 13:47 | Outpatient (REF) | payer OTHER, MEDICARE, MEDICAID, SELFPAY ==
--- OUTSIDE RECORDS SUMMARY | 2025-01-12 13:44 | XMS_ITS | Encounter Summary ---
Author Organization [facility] Address [address] [place] [address] Care Team Providers Care Cello Teacher Name Role Phone Tutu Moore MD Primary Care Provider [phone] Reason for Referral * Imaging (Routine) - Pending Review Specialty Diagnoses / Procedures Referred By Jalen coffman Referred To Contact Radiology Diagnoses Encounter for screening mammogram for malignant neoplasm of breast Procedures MG Mammo Digital Screening w Tutu Peoples MD [address] [place], [place] Phone: tel: fax: [address] Phone: tel: Referral ID Status Reason Start Date Expiration Date V isits Requested Visits Authorized [id number] Pending Review 01/10/2025 01/10/2026 1 1 Reason for Visit * Imaging (Routine) - Pending Review Specialty Diagnoses / Procedures Referred By Jalen coffman Referred To Contact Radiology Diagnoses Encounter for screening mammogram for malignant neoplasm of breast Procedures MG Mammo Digital Screening w Tutu Peoples MD [address] [place], [place] Phone: tel: fax: [address] Phone: tel: Referral ID Status Reason Start Date Expiration Date V isits Requested Visits Authorized [id number] Pending Review 01/10/2025 01/10/2026 1 1 Encounter Details Date Type Department Care Team (Latest Contact Info) Description 01/12/2025 1:44 PM EST - 01/12/2025 11:59 PM EST Hospital Encounter Radiology Department - [address] [address] Encounter for screening mammogram for malignant neoplasm of breast Discharge Disposition: Home or Self Care Social History Tobacco Use Types Packs/Day Years Used Date Smoking Tobacco: Former Cigarettes 0 Q uit: 06/07/2007 Smokeless Tobacco: Never Alcohol Use Standard Drinks/Week Comments No 0 (1 standard drink = 0.6 oz pur e alcohol) Comments No Sex and Gender Information Value Date Recorded Sex Assigned at Not on file Legal Sex Female 2:16 AM EST Gender Identity Not on file Sexual Orientation Not on file documented as of this encounter Medications at Time of Discharge amLODIPine-atorva statin (CADUET) 5-10 mg per tablet Take 1 tablet by mouth daily. BUPROPION HBR ORAL Take by mouth. cholecalciferol (VITAMIN D-3) 1,250 mcg (50,000 unit) capsule TAKE 1 CAPSULE BY MOUTH ONE TIME PER WEEK *NC BY INS* 12 capsule 1 03/25/2024 cyanocobalamin, vitamin B-12, 1,000 mcg tablet, sublingualIndicat ions:Deficiency of other specified B group vitamins PLACE 1 TABLET UNDER THE TONGUE DAILY FOR 90 DAYS. 90 tablet 2 11/16/2024 LORazepam (ATIVAN) 1 mg tablet Take 1 mg by mouth every 6 hours as needed. omeprazole (PRILOSEC) 20 mg tablet,delayed release (DR/EC) Take by mouth. oxcarbazepine (TRILEPTAL ORAL) Take by mouth. POTASSIUM CITRATE ORAL Take by mouth. 2 in the am and 2 pm propranolol HCl (PROPRANOLOL ORAL) Take 1 Tab by mouth daily. semaglutide (Wegovy) 2.4 mg/0.75 mL injection pen Inject 2.4 mg under the skin every 7 (seven) days. 3 mL 3 11/02/2024 05/01/2025 thiamine 100 mg tabletIndications :Thiamine deficiency, unspecified TAKE 1 TABLET BY MOUTH EVERY DAY. 90 tablet 3 03/28/2024 topiramate (TOPAMAX) 50 mg tablet TAKE 1 TABLET BY MOUTH TWICE A DAY 180 tablet 1 05/04/2024 documented as of this encounter Discharge Disposition Disposition Code Departure Means Destination Home or Self Care documented in this encounter Plan of Treatment Upcoming Encounters Date Type Department Care Team (Late st Contact Info) Description 02/07/2025 9:15 AM EST Office Visit Bariatric Surgery - [address] [place] [phone] Diamond Li MD [address] [place] [address] Pending Results Name Type Priority Associated Diagnoses Date /Time MG Mammo Digital Screening w Adrián bilat Imaging Routine Encounter for screening mammogram for malignant neoplasm of breast 01/12/2025 1:53 PM EST Scheduled Orders Name Type Priority Associated Diagnoses Orde r Schedule MG Mammo Digital Screening w Adrián bilat Imaging Routine Encounter for screening mammogram for malignant neoplasm of breast Once for 1 Occurrences starting 01/12/2025 until 01/12/2025 documented as of this encounter Visit Diagnoses Diagnosis Encounter for screening mammogram for malignant neoplasm of breast documented in this encounter Care Teams Cello Teacher Relationship Specialty Start Date End Date Tutu Moore MD [address] [place] [address] PCP - General 09/17/10 documented as of this encounter
--- OUTSIDE RECORDS SUMMARY | 2025-01-13 14:15 | XMS_ITS | Encounter Summary ---
Author Organization [employer] Address [address] [facility] 7t [place] [address] Care Team Providers Care Horticultural Specialty Grower Name Role Phone Tutu Moore MD Primary Care Provider [phone] Encounter Details Date Type Department Care Team ([facility] st Contact Info) Description 11/03/2023 Orders Only [facility] [address] [place] [address] Provider, MD [place] Social History Tobacco Use [...] documented as of this encounter Care Teams Horticultural Specialty Grower Relationship Specialty Start Date End Date Tutu Moore MD [address] [place] [address] PCP - General Internal Medicine 02/23/18 documented as of this encounter
--- OUTSIDE RECORDS SUMMARY | 2025-01-13 14:16 | XMS_ITS | Encounter Summary ---
Author Organization [employer] Address [address] [facility] 7 [place] [address] Care Team Providers Care Clockmaker Name Role Phone Tutu Moore MD Primary Care Provider [phone] Reason for Visit * Reason Onset Date Comments Call Back Request 07/06/2023 Encounter Details Date Type Department Care Team ([facility] st Contact Info) Description 07/06/2023 Telephone [facility] MEDICINE [address] [place] [address] Tutu Moore MD [address] [place] [address] Call Back Request Social History Tobacco Use [...] documented as of this encounter Care Teams Clockmaker Relationship Specialty Start Date End Date Tutu Moore MD [address] [place] [address] PCP - General Internal Medicine 02/23/18 documented as of this encounter
--- OUTSIDE RECORDS SUMMARY | 2025-01-13 14:16 | XMS_ITS | Encounter Summary ---
Author Organization [employer] Address [address] [place] [address] Care Team Providers Care Assistant Coach Name Role Phone Tutu Moore MD Primary Care Provider [phone] Reason for Visit * Reason Comments Med Change Request Encounter Details Date Type Department Care Team ([facility] Contact Info) Description 05/14/2022 Refill [facility] [address] [place], [place] [phone] Quin Rapp MD [address] [place] [address] Atopic dermatitis, unspecified type Social History Tobacco [...] type documented in this encounter Care Teams Assistant Coach Relationship Specialty Start Date End Date Tutu Moore MD [address] [place] [address] PCP - General Internal Medicine 1/1/19 documented as of this encounter
--- OUTSIDE RECORDS SUMMARY | 2025-01-13 14:16 | XMS_ITS | Encounter Summary ---
Author Organization [employer] Address [address] [facility] 7t [place] [address] Care Team Providers Care Pathological Technician Name Role Phone Tutu Moore MD Primary Care Provider [phone] Encounter Details Date Type Department Care Team ([facility] st Contact Info) Description 12/08/2022 Orders Only [facility] [address] [place], [place] [phone] Tutu Moore MD [address] [place] [address] Screening for tuberculosis (Primary Dx) Social History [...] PM EDT) T Spot TB Negative Negative [facility] Comment:A negative test resu lt [...] as aquantitative test. TS PANEL A 0 [facility] TS PANEL B 0 [facility] Negative Control Passed [facility] Positive Control Passed [facility] Comment:For additional infor diana, please refer tohttp://education.Ipsat Therapies/faq/KFE768(This link is being provided for informational/educational purposes only.)THIS TEST WAS PERFORMED AT:[employer] [id number] [place] [address]ORRYMECLEISA ZENG MD,PHD 12/16/2022 1:28 PM EDT 12/16/2022 2:25 PM EDT Tutu Moore MD LAB BLOOD ORDERABLES Final Result [facility] [address] [place] [address] [phone] documented in this encounter Visit Diagnoses Diagnosis Screening for tuberculosis- Primary Screening examination for pulmonary tuberculosis documented in this encounter Additional Health Concerns Assessment Noted Time PHQ-9 Depression Total Score: 0 06/07/19 23 1:57 PM EDT documented as of this encounter Care Teams Pathological Technician Relationship Specialty Start Date End Date Tutu Moore MD [address] [place] [address] PCP - General Internal Medicine 02/23/18 documented as of this encounter
--- OUTSIDE RECORDS SUMMARY | 2025-01-13 14:16 | XMS_ITS | Encounter Summary ---
Author Organization [employer] Address [address] [place] [address] Care Team Providers Care Hardware Engineering Manager Name Role Phone Tutu Moore MD Primary Care Provider [phone] Reason for Visit * Reason Comments Med Refill Encounter Details Date Type Department [facility] Description 11/01/2022 Refill [facility] [address] [place], [place] [phone] Tutu Moore MD [address] [place] [address] Social History Tobacco Use Types Packs/Day Years [...] documented as of this encounter Care Teams Hardware Engineering Manager Relationship Specialty Start Date End Date Tutu Moore MD [address] [place] [address] PCP - General Internal Medicine 02/23/18 documented as of this encounter
--- OUTSIDE RECORDS SUMMARY | 2025-01-13 14:16 | XMS_ITS | Data Portability ---
Author Organization [facility] [employer] Address [address] [place] [address] [place] [address] Care Team Providers Care Pharmacy Services Director Name Role Phone STEPHAN CHAVEZ Referring Provider Unavailabl e Unavailable Referring Provider [facility] Primary Care Provider Assessment Encounter Date Assessment [...] topiramate, through summer 2016; Headache morbidity resolution, ~[phone], for unknown reasons; Return of headaches causing [...] By Organization Details Last Modified Time 02/29/2024 13520 PREVIOUS DISCUSS IONS >>>>>>>>>>>>>BOTOX PROCEDURE 11/28/2016 300 [...] minutes mrossen Not available 02/29/2024 14:38:06 12/28/2024 [id number] PREVIOUS DISCUSS IONS >>>>>>>>>>>>>BOTOX PROCEDURE 11/28/2016 300 [...] Time DATA REVIEW completed Manuel John MD [address] [place] [address] [place], [phone], [facility] 12/28/2024 17:28:59 5 botulinum injection completed Manuel John MD [address] [place] [address] [place], [phone], [facility] 11/24/2024 14:35:45 5 botulinum injection completed Manuel John MD [address] [place] [address] [place], [phone], [facility] 06/29/2024 14:23:36 5 botulinum injection completed Manuel John MD [address] [place] [address] [place], [phone], [facility] 03/30/2024 14:55:31 5 DATA REVIEW completed Manuel John MD [address] [place] [address] [place], [phone], [facility] 02/29/2024 14:32:34 Imaging Results None recorded. [...] LastModified Time Tobacco Smoking Status Never Smoker [facility] 09/07/2023 09:38:49 What Is Your Level Of Caffeine Consumption? Occasional Information not available 09/07/2023 What Is The Highest Grade Or Level Of School You Have Completed Or The Highest Degree You Have Received? [id number] Information not available 09/07/2023 Which Of Your [...] ICD10 Code Diagnosis IMO Codes Diagnosis Note [id number] Manuel John MD [facility] [address] [place] [address] [place] [address] 09/07/2023 09:04:05 09/07/2023 10:39:10 Migraine without aura [id number] G43.009 [id number] Manuel John MD [facility] [address] [place] [address] [place] [address] 02/29/2024 13:54:07 02/29/2024 16:36:50 Migraine without aura [id number] G43.009 [id number] Manuel John MD [facility] [address] [place] [address] [place] [address] 03/30/2024 13:38:53 03/30/2024 15:53:29 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 74 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 G24.3 Facial spasm 43203753 G5 1.33 [id number] Manuel John MD [facility] [address] [place] [address] [place] [address] 06/29/2024 12:08:43 06/29/2024 15:08:16 Primary torsion dystonia 52628806 G24.1 Spasmodic torticollis 74 565455 G24.3 Facial spasm 11012307 G5 1.33 [id number] Manuel John MD [facility] [address] [place] [address] [place] [address] 11/24/2024 12:53:41 11/30/2024 12:49:14 Primary torsion dystonia 41944801 G24.1 Spasmodic torticollis 74 350681 G24.3 Facial spasm 80856822 G5 1.33 [id number] Manuel John MD [facility] [address] [place] [address] [place] [address] 12/28/2024 15:00:53 01/03/2025 16:17:57 Migraine without aura [id number] G43.009 Health Concerns Section Related Observation LastModified by Organization Detai ls LastModified Time None Recorded Concern Status LastModified by Organization Details LastModified Time None Recorded Advance Directives Directive None Recorded Payers Insurance Date Sequence Insurance Name Policy Number Policy Carrillo Covered Member ID Carrillo Member ID Guarantor Name 01/03/2025 1 [facility] [id number] 1 Pema Pena [id number] Pema Pena 09/07/2023 2 [place] [facility] Pema Pena [id number] Pema Pena 12/27/2024 2 [place] [facility] Pema Pena [id number] Pema Pena Notes Date Note Type Note [...] jobs. 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 She was working in going to [employer] through ~mid 2022. 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 She is on the computer much of [...] her headaches. 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 She likes the idea philosophically I d never put my mother in a long-term. She continues on Topamax which she restarted [...] Baclofen also cause tiredness. Manuel John MD [address] [place] [address] [place], [phone], [facility] 02/29/2024 14:38:35 03/30/2024 text/html Follow-up for Botox injections for muscle spasm triggering shoulder pain, neck pain and headache.-She is accompanied by her . >>>>>>>>>>>> BOTOX #1 (since November 28, 2016)We follow the amount and locations from chart note on Botox procedure November 28, 2016.Except: omitted SCM and lower trap edge -- no referral. Manuel John MD [address] [place] [address] [place], [phone], [facility] [employer] [facility] 03/30/2024 15:46:16 06/29/2024 text/html Follow-up for [...] edge -- no referral. Manuel John MD [address] [place] [address] [place], [phone], [facility] [employer] 06/29/2024 14:24:11 11/24/2024 text/html Follow-up for Botox [...] edge -- no referral. Manuel John MD [address] [place] [address] [place], [phone], [facility] [employer] [facility] 11/24/2024 14:37:58 12/28/2024 text/html Neurology follow-up for [...] This was not sufficient. She presented to [facility] December 13, 2024 where hyponatremia [...] jobs. 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 She was working in going to [employer] through ~mid 2022. 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 She is on the computer much of [...] her headaches. 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 She likes the idea philosophically I d never put my mother in a long-term. She continues on Topamax which she restarted [...] shoulder pain. Baclofen also cause tiredness. Manuel Jhon MD [address] [place] [address], [place], [phone], [facility] 12/28/2024 18:55:02 OBGyn Episode No OBEpisode recorded.
--- OUTSIDE RECORDS SUMMARY | 2025-01-13 14:16 | XMS_ITS | Clinical Summary ---
Author Organization [employer] Address 75 [facility] 7t [place] [address] Care Team Providers Care Hospice Physician Name Role Phone Tutu Moore MD Primary Care Provider [phone] Allergies No known active allergies Medications buPROPion [...] 05/11/19 23 Active clobetasol (Temovate) 0.05 % ointmentIndicati ons:Atopic dermatitis, unspecified type Apply topically 2 times daily. 90 g 05/15/19 23 Active Diclofenac Sodium 1 % gelIndications:C hronic pain of right knee APPLY 2 GRAMS [...] 05/14/19 24 Active solifenacin (VESIcare) 10 MG tabletIndication s:Stress incontinence TAKE 1 TABLET BY MOUTH EVERY DAY IN THE MORNING 90 tablet 3 02/25/19 25 Active NIFEdipine CC (Adalat CC) 30 MG 24 hr tabletIndication s:Hypertension, unspecified type TAKE 1 TABLET (30 MG) BY MOUTH BEFORE BREAKFAST. 90 tablet 3 03/30/19 25 Active propranolol (Inderal) 40 MG tablet TAKE 1 TABLET BY MOUTH TWICE DAILY. 180 tablet 1 08/23/19 25 Active omeprazole (PriLOSEC) [address] capsuleIndicatio ns:Gastroesophag eal reflux disease without esophagitis TAKE 1 CAPSULE [...] 12/13/19 25 Active sucralfate (Carafate) 1 g tabletIndication s:Epigastric pain Take 1 tablet (1 g) by mouth before breakfast, before lunch, before evening meal, and at bedtime. 120 tablet 11 12/20/19 25 026 Active ondansetron (Zofran) 4 MG tabletIndication s:Dizziness and giddiness TAKE 1 TABLET BY MOUTH EVERY 8 HOURS NEEDED FOR NAUSEA OR FOR VOMITING FOR UP TO 7 DAYS 18 tablet 1 12/30/19 25 Active ondansetron (Zofran) 4 MG tablet Take 1 tablet (4 mg) by mouth every 8 (eight) hours if needed for nausea or vomiting for up to 20 doses. 10 tablet 1 12/02/19 25 025 Discontinued meclizine (Antivert) 25 MG tabletIndication s:Vertigo Take 1 tablet (25 mg) by mouth if needed in the morning, at noon, and at bedtime for dizziness for up to 10 days. 30 tablet 12/06/19 25 025 Active Problems Problem Noted Date Diagnosed Date Paroxysmal supraventricular tachycardia 01/19/20 24 Essential hypertension 12/21/2017 Headache 12/30/2012 Cobalamin deficiency 12/30/2012 Insomnia 12/30/2012 Stress incontinence 12/30/2012 Vitamin D deficiency 12/30/2012 Depressive disorder 10/18/2012 Anxiety 10/18/2012 Encounters Date Type Department Care Team Description 01/02/2025 9:00 AM EST Office Visit [facility] [address] [place] [address] Tutu Moore MD Hyponatremia (Primary Dx); Chronic migraine with aura without status migrainosus, not intractable 01/02/2025 Results Follow-Up [facility] [address] [place] [address] Tutu Moore MD Basic Metabolic Panel 01/02/2025 Travel 12/30/2024 Telephone [facility] [address] [place] [address] Tutu Moore MD chart prep 12/29/2024 Refill [facility] [address] [place] [address] Tutu Desai MD Dizziness and giddiness 12/27/2024 Telephone [facility] [address] [place] [address] Tutu Moore MD 12/26/2024 9:00 AM EST Office Visit [facility] [address] [place] [address] Tutu Moore MD Hyponatremia (Primary Dx); Epigastric pain 12/26/2024 Orders Only [facility] [address] [place] [address] Tutu Moore MD 12/26/2024 Travel 12/23/2024 Orders Only [facility] [address] [place] [address] Tutu Moore MD Viral illness (Primary Dx); Hyponatremia 12/20/2024 Results Follow-Up [facility] [address] [place] [address] Delores García RN Basic Metabolic Panel 12/19/2024 10:15 AM EDT Office Visit [facility] [address] [place] [address] Tutu Moore MD Hyponatremia (Primary Dx); Epigastric pain; Essential hypertension 12/19/2024 Orders Only [facility] [address] [place] [address] Tutu Moore MD Hyponatremia (Primary Dx) 12/19/2024 Travel 12/16/2024 Telephone [facility] [address] [place] [address] Tutu Moore MD CHART PREP 12/15/2024 Telephone [facility] [address] [place] [address] Tutu Moore MD Call Back Request 12/13/[address] [address] Tutu Moore MD triage 12/12/2024 11:30 AM EDT Office Visit [address] [address] Catalina Nava MD Viral illness (Primary Dx); Chronic cluster headache, not intractable; Essential hypertension 12/12/2024 Travel 12/12/[address] [address] Tutu Moore MD Nurse Triage 12/05/2024 3:45 PM EDT Office Visit [facility] [address] [place] [address] Tutu Moore MD Vertigo (Primary Dx) 12/05/2024 Travel 12/01/2024 Telephone [facility] [address], [place] [phone] Tutu Moore MD Care Coordination 12/01/2024 Refill [facility] [address], [place] [phone] Tutu Moore MD 11/02/2024 3:40 PM EDT Office Visit [facility] [address] [place] [address] Eduard Simeon MD Vertigo (Primary Dx) 11/02/2024 Refill [facility] [address], [place] [phone] Tutu Moore MD Muscle strain 11/02/2024 Travel 11/02/2024 Telephone [facility] [address], [place] [phone] Tutu Moore MD Nurse Triage from Last [...] Disability Screening 12/19/2025 12/19/2024 Mammogram 12/28/2025 12/29/2023, 06/2023, 12/29/2023 Tobacco Screening 01/02/2026 01/02/2025 Zoster Vaccines [...] Associated Diagnosis Comments BASIC METABOLIC PANEL Routine 01/02/2025 9:54 AM EST Hyponatremia OSMOLALITY (U) Routine 12/26/2024 10:08 AM EST [...] Maintenance Results * (ABNORMAL) Basic Metabolic Panel (01/02/2025 9:54 AM EST) Only the most recent of3 resultswithin the time period is included. Sodium 132(L) 135 - 145 mmol/L [facility] Potassium 4.2 3.3 - 5.1 mmol/L [facility] Chloride 102 96 - 108 mmol/L [facility] Carbon Dioxide 24 22 - 29 mmol/L [facility] Anion Gap 10(L) 12 - 20 [facility] Urea Nitrogen (BUN) 11 9 - 16 mg/dL [facility] Creatinine, Serum 0.59 0.5 - 1.4 mg/dL [facility] Estimated Glomerular Filt Rate >60 [facility] Comment:Chronic Kidney Disea se: Estimated GFR < 60 mL/min/1.91b3Jkvwdi Kidney Disease: Estimated GFR < 15 mL/min/1.73m2 Glucose 86 60 - 115 mg/dL [facility] Calcium 9.0 8.4 - 10.2 mg/dL [facility] Blood Venous blood specimen / Unknown 01/02/2025 9:54 AM EST 01/02/2025 2:21 PM EST us Tutu Moore MD LAB BLOOD ORDERABLES Final Result [facility] [address] [place] [address] [phone] * Osmolality, Urine (12/26/2024 10:08 AM EST) OSMOLALITY URINE 452 373 - 1,093 mosm/kg [facility] 12/26/2024 10:0 8 AM EST 12/26/2024 1:59 PM EST us Tutu Moore MD LAB URINE ORDERABLES Final Result Performing Organization Address [facility] de Phone Number [facility] [address] [place] [phone] * Sodium Without creatinine, Random Urine (12/23/2024 9:00 AM EDT) Sodium Urine Random 69.0 mmol/L [facility] Urine Urine specimen obtained by clean catch procedure / Unknown 12/23/2024 9:00 AM EDT 12/23/2024 2:00 PM EDT us Tutu Moore MD LAB BLOOD ORDERABLES Final Result Performing Organization Address [facility] Phone Number [facility] [address] [place] [phone] * TSH W/Reflex to FT4 (12/23/2024 8:59 AM EDT) Pathologist [facility] TSH reflex Free T4 0.81 0.32 - 4.0 uIU/mL [facility] Blood Venous blood specimen / Unknown 12/23/2024 8:59 AM EDT 12/23/2024 2:00 PM EDT us Tutu Moore MD LAB BLOOD ORDERABLES Final Result Performing Organization Address [facility] de Phone Number [facility] [address] [place] [phone] * (ABNORMAL) Osmolality, Serum (12/23/2024 8:59 AM EDT) Osmolality (Serum) 270(L) 281 - 305 mosm/kg [facility] Blood Venous blood specimen / Unknown 12/23/2024 8:59 AM EDT 12/23/2024 2:00 PM EDT us Tutu Moore MD LAB BLOOD ORDERABLES Final Result Performing Organization Address [facility] Co ms Phone Number [facility] [address] [place] [phone] * Mr Brain w/ and w/o Contrast (12/19/2024) Anatomical Region Laterality Modality Brain Magnetic Resonan ce us Tutu Moore MD IMG MRI PROCEDURES Final Re sult * POCT Rapid Influenza B SOOD ID NOW (12/12/2024 2:23 PM EDT) Influenza B Negative Negative, Indeterminate [facility] QC Media Lot # [id number] [facility] Lot# Expiration Date [facility] Swab 12/12/2024 2:23 PM EDT Catalina Nava MD POINT OF CARE TEST ENTER/EDIT OR DERABLES Final Result Performing Organization Address [facility] Co de Phone Number [facility] [address] [place] [phone] * POCT Rapid Influenza A SOOD ID NOW (12/12/2024 2:23 PM EDT) Influenza A Negative Negative, Indeterminate [facility] QC Media Lot # [id number] [facility] Lot# Expiration Date [facility] Swab 12/12/2024 2:23 PM EDT us Catalina Nava MD POINT OF CARE TEST ENTER/EDIT OR DERABLES Final Result Performing Organization Address [facility]/ZIP Co de Phone Number [facility] [address] [place] [address] [phone] * POCT Rapid Covid-19 BinaxNOW (12/12/2024 12:22 PM EDT) Rapid COVID Ag Negative QC Media Lot # [id number] Lot# Expiration Date [id number] Swab 12/12/2024 12:2 2 PM EDT Catalina [...] 9:54 AM EDT) Triglycerides 113 <150 mg/dL [facility] Comment:Desirable Triglyceri de: less than 150 mg/dLBorderline High Triglyceride 150-199 mg/dLHigh Triglyceride: 200-499 mg/dLVery High Triglyceride: greater than or equal to 5OO mg/dL Cholesterol 149 <200 mg/dL [facility] Comment:Desirable Cholestero l: less than 200 mg/dLBorderline High Cholesterol: 200-239 mg/dLHigh Cholesterol: greater than 239 mg/dL LDL Cholesterol Calculated 63 <100 mg/dL [facility] Comment:Desirable LDL: less than 100 mg/dLNear Optimal/Above Optimal LDL: 110- 129 mg/dLBorderline High LDL: 130-159 mg/dLHigh LDL: 160-189 mg/dLVery High LDL: greater than or equal to 190 mg/dL HDL Cholesterol 64 >40 mg/dL [facility] Comment:Desirable HDL: great er than 40 mg/dL Note: This HDL assay may give artificially low results in patients with liver disease. Blood Venous blood specimen / Unknown 11/17/2022 9:54 AM EDT 11/17/2022 2:06 PM EDT us Tutu Moore MD LAB BLOOD ORDERABLES Final Result [facility] [address] [place] [phone] from Last 3 Months or Most Recently Relevant to Health Maintenance Insurance [facility] , [address] [place] [address] [place] [id number] ARBELLA Care Teams Hospice Physician Relationship Specialty Start Date End Date Tutu Moore MD [address] [place] [address] [place] [address] PCP - General Internal Medicine 02/23/18
--- OUTSIDE RECORDS SUMMARY | 2025-01-13 14:16 | XMS_ITS | Encounter Summary ---
Author Organization [employer] Address [address] [place] [address] [address] [place] [address] Care Team Providers Care Retail Special Event Associate Name Role Phone Tutu Moore MD Primary Care Provider [phone] Reason for Referral * Consultation (Urgent) - Authorized Specialty Diagnoses / Procedures Referred By Contgertrudis coffman Referred To Contact Nephrology Diagnoses Hyponatremia Tutu Moore MD [address] [place] [address] Phone: tel: fax: [facility] [address], [address] [place] [address] Phone: tel: fax: Referral ID Status Reason Start Date Expiration Date Visits Requested Visits Authorized [id number] Authorized Specialty Services Required 12/26/2024 12/26/2025 1 1 Encounter Details Date Type Department Care Team (Late st Contact Info) Description 12/23/2024 Orders Only [facility] [address] [place] [address] Tutu Moore MD [address] [place] [address] Viral illness (Primary Dx); Hyponatremia Social History [...] EST) Sodium 128(L) 135 - 145 mmol/L [facility] Potassium 4.1 3.3 - 5.1 mmol/L [facility] Chloride 99 96 - 108 mmol/L [facility] Carbon Dioxide 23 22 - 29 mmol/L [facility] Anion Gap 10(L) 12 - 20 [facility] Urea Nitrogen (BUN) 8(L) 9 - 16 mg/dL [facility] Creatinine, Serum 0.59 0.5 - 1.4 mg/dL [facility] Estimated Glomerular Filt Rate >60 [facility] Comment:Chronic Kidney Disea se: Estimated GFR < 60 mL/min/1.40z6Kpvlns Kidney Disease: Estimated GFR < 15 mL/min/1.73m2 Glucose 84 60 - 115 mg/dL [facility] Calcium 9.0 8.4 - 10.2 mg/dL [facility] Blood Venous blood specimen / Unknown 12/26/2024 10:05 AM EST 12/26/2024 2:06 PM EST us Tutu Moore MD LAB BLOOD ORDERABLES Final Result [facility] [address] [place] [phone] [phone] documented in this encounter Visit Diagnoses Diagnosis Viral illness- Primary Unspecified viral infection, in conditions classified elsewhere and of unspecified site Hyponatremia Hyposmolality and/or hyponatremia documented in this encounter Additional Health Concerns Assessment Noted Time PHQ-9 Depression Total Score: 14 025 11:09 AM EDT documented as of this encounter Care Teams Retail Special Event Associate Relationship Specialty Start Date End Date Tutu Moore MD [address] [place] [phone] PCP - General Internal Medicine 02/23/18 documented as of this encounter
--- OUTSIDE RECORDS SUMMARY | 2025-01-13 14:16 | XMS_ITS | Encounter Summary ---
Author Organization [email or web address] Address [address] [facility] 7t [place] [address] Care Team Providers Care Coal Cager Name Role Phone Tutu Moore MD Primary Care Provider [phone] Encounter Details Date Type Department Care Team ([facility] st Contact Info) Description 07/16/2023 Telephone [facility] [address] [place] [address] Tutu Moore MD [address] [place] [address] Social History Tobacco Use Types Packs/Day Years [...] documented as of this encounter Care Teams Coal Cager Relationship Specialty Start Date End Date Tutu Moore MD [address] [place] [address] PCP - General Internal Medicine 02/23/18 documented as of this encounter
--- OUTSIDE RECORDS SUMMARY | 2025-01-13 14:16 | XMS_ITS | Encounter Summary ---
Author Organization [employer] Address [address] [facility] 7 [place] [address] Care Team Providers Care Material Control Associate Name Role Phone Tutu Moore MD Primary Care Provider [phone] Reason for Visit * Reason Comments Med Refill Encounter Details Date Type Department Care Team ([facility] st Contact Info) Description 11/01/2022 Refill [facility] [address] [place] [address] Quin Rapp MD [address] [place] [address] Hypertension, unspecified type Social History Tobacco Use [...] documented as of this encounter Care Teams Material Control Associate Relationship Specialty Start Date End Date Tutu Moore MD [address] [place] [address] PCP - General Internal Medicine 02/23/18 documented as of this encounter
--- OUTSIDE RECORDS SUMMARY | 2025-01-13 14:16 | XMS_ITS | Encounter Summary ---
Author Organization [employer] Address [address] [facility] 7 [place] [address] Care Team Providers Care In Flight Refueling Manager Name Role Phone Tutu Moore MD Primary Care Provider [phone] Encounter Details Date Type Department Care Team ([facility] st Contact Info) Description 10/21/2023 Orders Only [facility] [address] [place], [place] [phone] Tutu Moore MD [address] [place] [address] Obesity (BMI 30-39.9) Social History Tobacco Use [...] documented as of this encounter Care Teams In Flight Refueling Manager Relationship Specialty Start Date End Date Tutu Moore MD [address] [place] [address] PCP - General Internal Medicine 02/23/18 documented as of this encounter
--- OUTSIDE RECORDS SUMMARY | 2025-01-13 14:16 | XMS_ITS | Clinical Summary ---
Author Organization [facility] Address [address] [place] [address] Phone Care Team Providers Care Mower Operator Name Role Phone Tutu Moore MD Primary Care Provider [phone] Allergies No known active allergies Medications POTASSIUM [...] Encounters Date Type Department Care Team Description 01/12/2025 1:44 PM EST - 01/12/2025 11:59 PM EST Hospital Encounter Radiology Department [address] [address] Encounter for screening mammogram for malignant neoplasm of breast Discharge Disposition: Home or Self Care 12/19/2024 3:23 PM EDT - 12/19/2024 11:59 PM EDT Hospital Encounter [facility] MRI [address] [place] [address] Dizziness and giddiness Discharge Disposition: Home or Self Care 11/01/2024 Telephone Bariatric Surgery - [place] [address] [facility] [address] [place] [address] Diamond Li MD from Last 3 Months Immunizations Immunization Administration Dates Next Due Hepatitis B (Sserqmo-O-Xhfdm , Recombivax HB-Adult) 19yo and older 06/04/2012,12/19/2011,11/10/2011 [...] Date Site/Laterality Comments GASTRIC BYPASS 09/2004 PROCEDURE: SD GASTRIC RSTCV W/BYP W/SM INT RCNSTJ LIMIT ABSRPJ OTHER SURGICAL HISTORY 2013 PROCEDURE: SD LAPS GASTRIC RESTRICTIVE PROCEDURE PLACE DEVICE; COMMENT: [...] Upcoming Encounters Date Type Department Care Team ([facility] st Contact Info) Description 02/07/2025 9:15 AM EST Office Visit Bariatric Surgery - [address] [place] [address] Diamond Li MD [address] [place] [phone] Health Maintenance Due Date Last Done Comments Colorectal Cancer Screening: Colonoscopy 1977 Hepatitis C Screening 01/26/2022 Medicare Annual Wellness Visit 01/26/2022 Social Influencers of Health Screening 01/26/2022 Depression Screening 02/24/2024 COVID-19 Vaccine ( season) 2024 12/24/2020, 04/16/2020, 03/25/2020 Influenza Vaccine (#1) 2024 , 12/18/2015, 11/28/2014, Additional history exists Breast Cancer Screening 12/28/2025 12/29/19, 12/24/2022, 09/07/2019, Additional history exists Hypertension/CHF/CAD Annual BMP Blood Test 01/02/2026 01/02/2025, 12/26/2024, 12/19/2024, Additional history exists Cholesterol Screening (Lipid Panel) [...] Signed Date: 12/23/2024 08:20 ET Workstation ID: [id number] Transcribed By: Self Edit Transcribed Date: 12/23/2024 [...] Signed Date: 12/23/2024 08:20 ET Workstation ID: [id number] Transcribed By: Self Edit Transcribed Date: 12/23/2024 [...] is recommended in 1 year. Mammo Location: [facility], [address] [place] [address], [phone], . -------- FINAL REPORT -------- Dictated By: Jason Vizcaino Dictated Date: 12/30/2023 16:02 ET Assigned Physician: Jason Vizcaino Reviewed and Electronically Signed By: Jason Vizcaino Signed Date: 12/30/2023 18:34 ET Workstation ID: [id number] Transcribed By: Self Edit Transcribed Date: 12/30/2023 [...] is recommended in 1 year. Mammo Location: [facility], [address] [place] [address], [phone], . -------- FINAL REPORT -------- Dictated By: Jason Vizcaino Dictated Date: 12/30/2023 16:02 ET Assigned Physician: Jason Vizcaino Reviewed and Electronically Signed By: Jason Vizcaino Signed Date: 12/30/2023 18:34 ET Workstation ID: [id number] Transcribed By: Self Edit Transcribed Date: 12/30/2023 16:16 ET Result [facility] Tutu Moore MD IMG BI PROCEDURES Final R esult * Annual BMP Blood Test (12/07/2023) Pathologist [facility] Annual BMP Blood Test abstracted Result [facility] Historical Provider HEALTH MAINTENANCE Final Result * Cervical Cancer Screening: HPV (06/05/2023) [facility] Cervical Cancer Screening: HPV abstracted, negative Result [facility] Historical Provider HEALTH MAINTENANCE Final Result * HIV Screening (06/09/2007) [facility] HIV Screening abstracted Result [facility] Provider HEALTH MAINTENANCE Final Result * Lipid panel (02/08/2001) [facility] LDL/HDL Ratio 2 1 - 4 Triglycerides 131 10 - 140 mg/dL Cholesterol 165 10 - 200 mg/dL HDL 76 32 - 96 mg/dL LDL Cholesterol 63 62 - 185 mg/dL Blood Venous blood specimen / Unknown Result [facility] Historical Provider LAB BLOOD ORDERABLES Dee l Result from Last 3 Months or Most Recently Relevant to Health Maintenance Insurance [facility] MEDICARE Care Teams Mower Operator Relationship Specialty Start Date End Date Tutu Moore MD [address] [place] [address] PCP - General 09/17/10
--- OUTSIDE RECORDS SUMMARY | 2025-01-13 14:16 | XMS_ITS | Encounter Summary ---
Author Organization [employer] Address [address] [place] [address] 7 [place] [address] Care Team Providers Care Food Safety Coordinator Name Role Phone Tutu Moore MD Primary Care Provider [phone] Encounter Details Date Type Department Care Team ([facility] st Contact Info) Description 11/21/2022 Orders Only [facility]S [address] [place], [place] [phone] Tutu Moore MD [address] [place] [address] Obesity (BMI 30-39.9) (Primary Dx) Social History [...] documented as of this encounter Care Teams Food Safety Coordinator Relationship Specialty Start Date End Date Tutu Moore MD [address] [place] [address] PCP - General Internal Medicine 02/23/18 documented as of this encounter
--- OUTSIDE RECORDS SUMMARY | 2025-01-13 14:16 | XMS_ITS | Encounter Summary ---
Author Organization [employer] Address 75 [facility] 7t [place] [address] Care Team Providers Care Road Passenger Firer Name Role Phone Tutu Moore MD Primary Care Provider [phone] Encounter Details Date Type Department Care Team ([facility] st Contact Info) Description 04/09/2023 Orders Only [facility] [address] [place], [place] [phone] Tutu Moore MD [address] [place] [address] Social History Tobacco Use Types Packs/Day Years [...] documented as of this encounter Care Teams Road Passenger Firer Relationship Specialty Start Date End Date Tutu Moore MD [address] [place] [address] PCP - General Internal Medicine 02/23/18 documented as of this encounter
--- OUTSIDE RECORDS SUMMARY | 2025-01-13 14:16 | XMS_ITS | Encounter Summary ---
Author Organization [employer] Address [address] [facility] 7 [place] [address] Care Team Providers Care Gasfitter Name Role Phone Tutu Moore MD Primary Care Provider [phone] Encounter Details Date Type Department Care Team ([facility] Contact Info) Description 01/02/2025 Results Follow-Up [facility] MED & PEDS [address] [place], [place] [phone] Tutu Moore MD [address] [place] [address] Basic Metabolic Panel Social History Tobacco Use [...] documented as of this encounter Care Teams Gasfitter Relationship Specialty Start Date End Date Tutu Moore MD [address] [place] [address] PCP - General Internal Medicine 02/23/18 documented as of this encounter
--- OUTSIDE RECORDS SUMMARY | 2025-01-13 14:16 | XMS_ITS | Continuity of Care Document ---
Author Organization [facility] Address [address] [place] [address] Care Team Providers Care Control Systems Eng Name Role Phone STEPHAN CHAVEZ Referring Provider Unavailabl e Unavailable Referring Provider [facility] Primary Care Provider [phone] Assessment Encounter Date Assessment Date Assessment LastModified [...] By Organization Details Last Modified Time 12/28/2024 [id number] PREVIOUS DISCUSS IONS >>>>>>>>>>>>>BOTOX PROCEDURE 11/28/2016 300 [...] Time DATA REVIEW completed Manuel John MD [address] [place], [place] [address], [address], [facility]ly [facility] Neurology [facility] 12/28/2024 17:28:59 botulinum injection completed Manuel John MD [address] [place] [address], [place], [address], [facility] 11/24/2024 14:35:45 5 botulinum injection completed Manuel John MD [address] [place] [address] [place], [address], [facility] Neurology [facility] 06/29/2024 14:23:36 5 botulinum injection completed Manuel John MD [address] [place] [address] [place], [address], [facility]ly [facility] innocutis [facility] 03/30/2024 14:55:31 5 DATA REVIEW completed Manuel John MD [address] [place] [address] [place], [address], [facility] 02/29/2024 14:32:34 Imaging Results None recorded. [...] LastModified Time Tobacco Smoking Status Never Smoker [facility] 09/07/2023 09:38:49 What Is Your Level Of Caffeine Consumption? Occasional Information not available 09/07/2023 What Is The Highest Grade Or Level Of School You Have Completed Or The Highest Degree You Have Received? [id number] Information not available 09/07/2023 Which Of Your [...] History Condition Response Vitamin D Deficiency Y Vitamin B12 deficiency Y High Blood Pressure or Hypertension Y Headaches Y Asthma Y Gynecological HistoryNo gynecological history recorded. Obstetrics History GPAL:G 0 P 0 0 0 0 Past Encounters Encounter ID Performer Location Encounter Start Date Encounter Closed Date Diagnosis/Indication Diagnosis SNOMED-CT Code Diagnosis ICD10 Code Diagnosis IMO Codes Diagnosis Note [id number] Manuel John MD [facility] [address] [place] [address] [place] [address] 12/28/2024 15:00:53 01/03/2025 16:17:57 Migraine without aura 05511675 G43.009 Health Concerns Section Related Observation LastModified by Organization Detai ls LastModified Time None Recorded Concern Status LastModified by Organization Details LastModified Time None Recorded Payers Encounter Date Sequence Insurance Name Policy Number Policy Carrillo Covered Member ID Carrillo Member ID Guarantor Name 12/28/2024 1 [id number] [facility] [place] [id number] 1 Pema Pena [id number] Pema Pena 12/28/2024 2 [place] [facility] Pema Pena [id number] Pema Pena Notes Date Note Type Note [...] This was not sufficient. She presented to [facility] December 13, 2024 where hyponatremia was [...] father and she needed to go to [place] where she stayed for 9 months. She supposes that the Botox worked ideally as it had previously but she does not remember. In any case, she does not remember headaches bothering her particularly in [place] maybe it was the adrenaline. However, she [...] jobs. 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 She was working in going to [employer] through ~mid 2022. Since then, she has obtained a job working from home, still as a social contact worker. She is on the computer much [...] her headaches. 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 She likes the idea philosophically I d never put my mother in a mcfp. She continues on Topamax which she restarted [...] Baclofen also cause tiredness. Manuel John MD [address] [place] [address] [place], [address], [facility] 12/28/2024 18:55:02 OBGyn Episode No OBEpisode recorded.
--- OUTSIDE RECORDS SUMMARY | 2025-01-13 14:16 | XMS_ITS | Encounter Summary ---
Author Organization [employer] Address [address] 7t [place] [address] Care Team Providers Care Granulizing Machine Operator Name Role Phone Tutu Moore MD Primary Care Provider [phone] Encounter Details Date Type Department Care Team (Late st Contact Info) Description 11/02/2023 Abstract [facility] MED & PEDS [address] [place], [place] [phone] [place], [place] Social History Tobacco Use Types Packs/Day [...] documented as of this encounter Care Teams Granulizing Machine Operator Relationship Specialty Start Date End Date Tutu Moore MD [address] [place] [address] PCP - General Internal Medicine 02/23/18 documented as of this encounter
--- OUTSIDE RECORDS SUMMARY | 2025-01-13 14:16 | XMS_ITS | Encounter Summary ---
Author Organization [employer] Address [address] [place] [address] Care Team Providers Care Manager Global Name Role Phone Tutu Moore MD Primary Care Provider [phone] Encounter Details Date Type Department Care Team ([facility] st Contact Info) Description 12/31/2023 Orders Only [facility] MED & PEDS [address] [place], [place] [phone] Provider, MD [place] Social History Tobacco Use [...] documented as of this encounter Care Teams Manager Global Relationship Specialty Start Date End Date Tutu Moore MD [address] [place] [address] PCP - General Internal Medicine 02/23/18 documented as of this encounter
--- OUTSIDE RECORDS SUMMARY | 2025-01-13 14:16 | XMS_ITS | Encounter Summary ---
Author Organization [employer] Address [address] [facility] 7 [place] [address] Care Team Providers Care Allied Health Professional Name Role Phone Tutu Moore MD Primary Care Provider [phone] Reason for Visit * Reason Comments Med Change Request Encounter Details Date Type Department Care Team ([facility] st Contact Info) Description 04/08/2023 Refill [facility] MEDICINE [address] [place] [address] Tutu Moore MD [address] [place] [address] Stress incontinence (Primary Dx); Hypertension, unspecified type [...] documented as of this encounter Care Teams Allied Health Professional Relationship Specialty Start Date End Date Tutu Moore MD [address] [place] [address] PCP - General Internal Medicine 02/23/18 documented as of this encounter
--- OUTSIDE RECORDS SUMMARY | 2025-01-13 14:16 | XMS_ITS | Encounter Summary ---
Author Organization [employer] Address [address] [facility] 7 [place] [address] Care Team Providers Care Property Field Inspector Name Role Phone Tutu Moore MD Primary Care Provider [phone] Reason for Visit * Reason Onset Date Comments OTHER 12/05/2022 Encounter Details Date Type Department Care Team ([facility] st Contact Info) Description 12/05/2022 Telephone [facility] MEDICINE [address] [place] [address] Tutu Moore MD [address] [place] [address] OTHER Social History Tobacco Use Types Packs/Day [...] documented as of this encounter Care Teams Property Field Inspector Relationship Specialty Start Date End Date Tutu Moore MD [address] [place] [address] PCP - General Internal Medicine 02/23/18 documented as of this encounter
--- OUTSIDE RECORDS SUMMARY | 2025-01-13 14:16 | XMS_ITS | Encounter Summary ---
Author Organization [employer] Address [address] [facility] 7t [place] [address] Care Team Providers Care Manager Of Purchasing Name Role Phone Tutu Moore MD Primary Care Provider [phone] Encounter Details Date Type Department Care Team ([facility] st Contact Info) Description 10/15/2023 Orders Only [facility] [address] [place] [address] Tutu Moore MD [address] [place] [address] Obesity (BMI 30-39.9) Social History Tobacco Use [...] as of this encounter Care Teams Manager Of Purchasing Relationship Specialty Start Date End Date Tutu Moore MD [address] [place] [address] PCP - General Internal Medicine 02/23/18 documented as of this encounter
--- OUTSIDE RECORDS SUMMARY | 2025-01-13 14:16 | XMS_ITS | Encounter Summary ---
Author Organization [employer] Address [address] [facility] 7t [place] [address] Care Team Providers Care Cement Production Plant Operator Name Role Phone Tutu Moore MD Primary Care Provider [phone] Encounter Details Date Type Department Care Team ([facility] st Contact Info) Description 09/01/2023 Orders Only [facility] MED & PEDS [address] [place], [place] [phone] Tutu Moore MD [address] [place] [address] Social History Tobacco Use Types Packs/Day Years [...] documented as of this encounter Care Teams Cement Production Plant Operator Relationship Specialty Start Date End Date Tutu Moore MD [address] [place] [address] PCP - General Internal Medicine 02/23/18 documented as of this encounter
--- OUTSIDE RECORDS SUMMARY | 2025-01-13 14:17 | XMS_ITS | Encounter Summary ---
Author Organization [employer] Address [address] [place] [address] Care Team Providers Care Funeral Car Chauffeur Name Role Phone Tutu Moore MD Primary Care Provider [phone] Reason for Visit * Reason Comments Med Refill Encounter Details Date Type Department Care Team ([facility] st Contact Info) Description 04/27/2022 Refill [facility] MEDICINE [address] [place], [place] [phone] Tutu Moore MD [address] [place] [address] Chronic pain of right knee (Primary Dx); [...] cause documented in this encounter Care Teams Funeral Car Chauffeur Relationship Specialty Start Date End Date Tutu Moore MD [address] [place] [address] PCP - General Internal Medicine 02/23/18 documented as of this encounter
--- OUTSIDE RECORDS SUMMARY | 2025-01-13 14:17 | XMS_ITS | Continuity of Care Document ---
Author Organization [facility] [employer] [facility] Address [address] [facility] [address] [place] [address] Care Team Providers Care Health Care Attorney Name Role Phone STEPHAN CHAVEZ Referring Provider Unavailabl e Unavailable Referring Provider [facility] Primary Care Provider [phone] Assessment No assessment recorded. Plan of Treatment [...] 5 DATA REVIEW completed Manuel John MD [address] [place], [place] [address], [address], [facility] Neurology [facility] 12/28/2024 17:28:59 5 botulinum injection completed Manuel John MD [address] [place], [place] [address], [address], [facility] Neurology [facility] 11/24/2024 14:35:45 5 botulinum injection completed Manuel John MD [address] [place], [place] [address], [address], [facility] Neurology [facility] 06/29/2024 14:23:36 5 botulinum injection completed Manuel John MD [address] [place] [place] [address] [place], [address], [facility] Neurology [employer] 03/30/2024 14:55:31 DATA REVIEW completed Manuel John MD [address] [place] [place] [address] [place], [address], [facility] Neurology [facility] 02/29/2024 14:32:34 Imaging Results None recorded. [...] Smoking Status Never Smoker [place] [facility] 09/07/2023 09:38:49 What Is Your Level Of Caffeine Consumption? Occasional Information not available 09/07/2023 What Is The Highest Grade Or Level Of School You Have Completed Or The Highest Degree You Have Received? 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 Manuel John MD [address] [place] [address] [place], [address], [facility] Neurology [facility] 11/24/2024 14:37:58 OBGyn Episode No OBEpisode recorded.
--- OUTSIDE RECORDS SUMMARY | 2025-01-13 14:17 | XMS_ITS | Encounter Summary ---
Author Organization [employer] Address [address] [facility] 7 [place] [address] Care Team Providers Care Visual Merchandising Assistant Name Role Phone Tutu Moore MD Primary Care Provider [phone] Reason for Visit * Reason Onset Date Comments Nurse Triage 11/02/2024 Encounter Details Date Type Department Care Team ([facility] st Contact Info) Description 11/02/[address] [facility] MEDICINE [address] [place] [address] Tutu Moore MD [address] [place] [address] Nurse Triage Social History Tobacco Use Types [...] the past 12 months, has t he [employer], gas, oil or water company threatened to [...] Pt is advised no available apts in [facility] today or the next few days. Divisional Merchandising Manager can forward this information to [facility] team nurses for possible apt next week. Pt is advised may be seen by provider in [facility] today open till 8pm. Pt is given [facility] address [address] [facility] [place]. Pt will have transport there after work. Pt is needing an excuse to stay home from work. Pt agrees with disposition. Insurance isverified as active. Protocol Used: Dizziness (Adult) Protocol-Based [...] documented as of this encounter Care Teams Visual Merchandising Assistant Relationship Specialty Start Date End Date Tutu Moore MD [address] [place] [address] PCP - General Internal Medicine 02/23/18 documented as of this encounter
[2025-01-13 19:05] LABS: Anion Gap 10 (12-20); Blood Urea Nitrogen 10 mg/dL (9-16); Calcium 8.7 mg/dL (8.4-10.2); Carbon Dioxide 25 mmol/L (22-29); Chloride 105 mmol/L (96-108); Estimated Glomerular Filt Rate > 60; Potassium 3.9 mmol/L (3.3-5.1); Sodium 136 mmol/L (135-145)
[2025-01-21 19:28] LABS: Cortisol, Free 0.22 mcg/dL
== END 2025-01-13 13:48 | disposition home or self-care (01) ==
LOC: HO.CHCLDS 13:47
PROVIDERS: Visit Provider Internal Medicine Hypertension Specialist
DX: E87.1 Hypo-osmolality and hyponatremia (principal)
CPT/HCPCS: 36415; 80048; 82530; 84443

== ENCOUNTER 2025-02-08 09:37 | Outpatient (AMB) | payer OTHER, MEDICARE, MEDICAID, SELFPAY ==
--- NOTE | 2025-02-08 09:50 | HO.NEPHOV ---
Vital Signs 02/08/25 09:51 Height 5 ft 5 in Weight 187 lb BMI 31.1 BP 92/64 Blood Pressure Location Lt brachial Position Sitting Pulse 86 Pulse Source Pulse Oximeter Pulse Oximetry (%) 99 Oxygen Delivery Method Room Air Intake Visit Reasons: 4 wks f/u w/ labs Ux Interaction Designer Required: No Accompanied by: Spouse Allergies No Known Allergies (No Known Allergies*) Allergy (Verified 02/08/25 09:53) Medication List - Last Reconciled 02/08/25 by oRry Larson MD acetaminophen ER (Tylenol 8 Hour) 650 mg PO Q8H bupropion HCl XL 300 mg PO QAM clonazepam 1 mg PO DAILY PRN clonidine HCl 0.1 mg PO BID ibuprofen 800 mg PO TID mecobalamin (vitamin B12) 1,000 mcg sublingual DAILY nifedipine ER 30 mg PO QAM omeprazole 20 mg PO BID PRN ondansetron 4 mg PO Q8H PRN oxcarbazepine 300 mg PO BID propranolol 20 mg PO BID quetiapine 100 mg PO BEDTIME solifenacin 10 mg PO QAM sucralfate 1 g PO QID temazepam 30 mg PO BEDTIME HPI Comments Details: The patient is a 49-year-old female presenting with hyponatremia. The low sodium levels were first noticed on June 02, and the patient has experienced dizziness, confusion, and difficulty reading since then. The sodium level improved from 128 to 132 mEq/L after medication adjustments, but the patient continues to experience nausea and diarrhea. The patient reports a history of low blood pressure, which was recorded at 110/60 mmHg during the visit. She has experienced tachycardia with a heart rate of 147 bpm at rest, particularly worsening at night. The patient has a history of kidney stones, which required stent placement approximately a year and a half ago. She was treated with antibiotics for a high fever and infection related to the stones. The patient is currently taking clonidine and propranolol for anxiety, which may contribute to her low blood pressure. She also reports premenopausal symptoms, including hot flashes, for which she was prescribed clonidine and Effexor. 02/08/25 Off CLonidine Still has dry mouth and thirsty Trileptal has been decreased Recent Na 136 Physical Exam Vital Signs: Last Vital Signs Pulse 86 02/08/25 09:51 BP 92/64 02/08/25 09:51 Pulse Ox 99 02/08/25 09:51 Oxygen Delivery Method Room Air 02/08/25 09:51 BMI result Body Mass Index 31.1 Comfortable Neck supple no JVD. Lungs entry equal no rales. Heart S1-S2 heard no gallop or rub. Abdomen soft nontender. Neuro alert awake oriented. No asterixis. Extremities no edema. Results Reviewed Nephrology Results: Hgb, (12.0-16.0) 12.7 g/dl 11/17/22 WBC, (4.8-10.8) 10.2 X10*3/uL 11/17/22 Plt Count, (160-400) 171 X10*3/uL 11/17/22 Sodium, (135-145) 136 mmol/L 01/13/25 Potassium, (3.3-5.1) 3.9 mmol/L 01/13/25 Chloride, (96-108) 105 mmol/L 01/13/25 Carbon Dioxide, (22-29) 25 mmol/L 01/13/25 BUN, (9-16) 10 mg/dL 01/13/25 Creatinine, (0.5-1.4) 0.58 mg/dL 01/13/25 Calcium, (8.4-10.2) 8.7 mg/dL 01/13/25 Assessment & Plan Assessment & Plan (1) Hyponatremia: Code(s): E87.1 - Hypo-osmolality and hyponatremia Category: Medical (2) Headache: Code(s): R51.9 - Headache, unspecified Category: Medical Plan 1. Hyponatremia Due to Non osmotic ADH release. Medications could be contributing as well - Continue monitoring sodium levels and adjust medications as needed. Recent pNa is 136 cortisol and thyroid function - are normal - Encourage electrolyte-rich fluids like Pedialyte instead of water. 2. Low Blood Pressure DC Nifedipine 3. h/o Tachycardia Probably has reflex tachycardia due to Nifedipine DC Nifedipine 4. h/o Kidney Stones - Follow up on kidney function and consider imaging if symptoms recur. 5. Persistent Headaches Orders: Orders Basic Metabolic Panel Today E87.1 - Hypo-osmolality and hyponatremia Referrals Neurology Referral R51.9 - Headache, unspecified Coding Level of Care Code Est Pt Level 4 (46457) Diagnoses Hyponatremia E87.1 Headache R51.9
[2025-02-08 09:51] VITALS: BP 92/64; PULSE 86; O2SAT 99; BMI 31.1
--- OUTSIDE RECORDS SUMMARY | 2025-02-08 11:07 | XMS_ITS | Encounter Summary ---
Author Organization [employer] Address [address] [facility] 7t [place] [address] Care Team Providers Care Quality Associate Name Role Phone Tutu Moore MD Primary Care Provider [phone] Encounter Details Date Type Department Care Team ([facility] st Contact Info) Description 11/03/2023 Orders Only [facility] [address] [place] [address] Provider, MD [place] Social History Tobacco Use [...] documented as of this encounter Care Teams Quality Associate Relationship Specialty Start Date End Date Tutu Moore MD [address] [place] [address] PCP - General Internal Medicine 02/23/18 documented as of this encounter
--- OUTSIDE RECORDS SUMMARY | 2025-02-08 11:07 | XMS_ITS | Clinical Summary ---
Author Organization [address] [facility] Address [address] [place] [address] Phone Care Team Providers Care Electrician Control Equipment Name Role Phone Tutu Moore MD Primary Care Provider [phone] Allergies No known active allergies Medications POTASSIUM [...] WEEK *NC BY INS* 12 capsule 1 5 Active thiamine 100 mg tabletIndication s:Thiamine deficiency, unspecified TAKE 1 TABLET BY MOUTH EVERY DAY. 90 tablet 3 5 Active topiramate (TOPAMAX) 50 mg tablet TAKE 1 TABLET BY MOUTH TWICE A DAY 180 tablet 1 5 Active cyanocobalamin, vitamin B-12, 1,000 mcg tablet, sublingualIndica tions:Deficiency of other specified B group vitamins PLACE 1 TABLET UNDER THE TONGUE DAILY FOR 90 DAYS. 90 tablet 2 5 Active semaglutide (Wegovy) 2.4 mg/0.75 mL injection penIndications:S everely overweight Inject 2.4 mg under the skin every 7 (seven) days. 3 mL 3 5 07/23/19 26 Active semaglutide (Wegovy) 2.4 mg/0.75 mL injection pen Inject 2.4 mg under the skin every 7 (seven) days. 3 mL 3 5 01/24/20 25 Discontinu ed(Reorder ) Active Problems Problem Noted Date Diagnosed Date Dysphagia 01/25/2025 H/O laparoscopic adjustable gastric banding 04/2024 Sleep apnea in adult 01/25/2024 Tachycardia 01/25/2024 [...] Encounters Date Type Department Care Team Description 01/23/2025 9:45 AM EST Office Visit Bariatric Surgery - [place] [address] [facility] [address] [place] [phone] Diamond Li MD Esophageal dysphagia (Primary Dx); Other complications of gastric band procedure; Severely overweight 01/12/2025 1:44 PM EST - 01/12/2025 11:59 PM EST Hospital Encounter Radiology Department [address] [address] Encounter for screening mammogram for malignant neoplasm of breast Discharge Disposition: Home or Self Care 12/19/2024 3:23 PM EDT - 12/19/2024 11:59 PM EDT Hospital Encounter [facility] MRI [address] [place] [address] Dizziness and giddiness Discharge Disposition: Home or Self Care from Last 3 Months Immunizations Immunization Administration Dates Next Due Hepatitis B (Dwzvdbd-K-Wccnw , Recombivax HB-Adult) 19yo and older 06/04/2012,12/19/2011,11/10/2011 [...] Date Site/Laterality Comments GASTRIC BYPASS 09/2004 PROCEDURE: MN GASTRIC RSTCV W/BYP W/SM INT RCNSTJ LIMIT ABSRPJ OTHER SURGICAL HISTORY 2013 PROCEDURE: MN LAPS GASTRIC RESTRICTIVE PROCEDURE PLACE DEVICE; COMMENT: [...] Sign Reading Time Taken Comments Blood Pressure 107/71 01/23/2025 9:48 AM EST Pulse 118 01/23/2025 9:48 AM EST Temperature 36.4 C (97.6 F) 01/23/2025 9:48 AM EST Respiratory Rate - - Oxygen Saturation - - Inhaled Oxygen Concentration - - Weight 83 kg (183 lb) 01/23/2025 9:48 AM EST Height 167.6 cm (5' 6 ) 01/23/2025 9:48 AM EST Body Mass Index 29.54 01/23/2025 9:48 AM EST Plan of Treatment Upcoming Encounters Date Type Department Care Team (Late st Contact Info) Description 02/20/2025 9:00 AM EST Appointment [facility] Endoscopy [address] [place] [phone] Suhas Martínez MD [address] [place] [address] 05/04/2025 8:30 AM EDT Office Visit Bariatric Surgery - [place] [address] [place] [address] Diamond Li MD [facility] [place] [address] Health Maintenance Due Date Last Done Comments Colorectal Cancer Screening: Colonoscopy 1975 Drug Screen 1977 Non-Opioid Controlled Substance Agreement 1977 Hepatitis C Screening 01/26/2022 Medicare Annual Wellness Visit 01/26/2022 Social Influencers of Health Screening 01/26/2022 Depression Screening 02/24/2024 COVID-19 Vaccine ( season) 2024 12/24/2020, 04/16/2020, 03/25/2020 Influenza Vaccine (#1) 2024 , 12/18/2015, 11/28/2014, Additional history exists Hypertension/CHF/CAD Annual BMP Blood Test 01/02/2026 01/02/2025, 12/26/2024, 12/19/2024, Additional history exists Breast Cancer Screening 01/12/2027 01/13/20, 12/29/2023, 12/24/2022, Additional history exists Cholesterol Screening (Lipid Panel) [...] on patient's age to complete this topic Goals Goal Patient Goal Type Associated Problems Recent Progress Patient-Stated? Author Autogenera sheri Goal Care Plan Autogenerated Problem No Yokasta Nolasco Procedures Procedure Name Priority Date/Time Associated Diagnosis Comments MG MAMMO DIGITAL SCREENING W ADRIÁN BILAT Routine 01/12/2025 1:53 PM EST Encounter for screening mammogram for malignant neoplasm of breast MR BRAIN WO AND W CONTRAST Routine 12/19/2024 4:23 PM EDT Dizziness and giddiness ANNUAL BMP BLOOD TEST Routine 12/07/2023 HPV Routine 06/05/2023 HIV SCREENING Routine 06/09/2007 LIPID PANEL Routine 02/08/2001 from Last 3 Months or Most Recently Relevant to Health Maintenance Results * MG Mammo Digital Screening w Adrián bilat (01/12/2025 1:53 PM EST) Anatomical Region Laterality Modality Breast Bilateral Mammography 01/16/2025 9:28 AM EST Impressions 01/16/2025 9:31 AM EST 1. No mammographic evidence of malignancy 2. Scattered fibroglandular tissue BI-RADS CATEGORY: 2 - BENIGN RECOMMENDATION: Screening bilateral mammogram is recommended in 1 year. Mammo Location: [facility], [address] [place], [place], [address], . -------- FINAL REPORT -------- Dictated By: Jackie Garcia Dictated Date: 01/16/2025 09:28 ET Assigned Physician: Jackie Garcia Reviewed and Electronically Signed By: Jackie Garcia Signed Date: 01/16/2025 09:31 ET Workstation ID: [id number] Transcribed By: Self Edit Transcribed Date: 01/16/2025 09:28 ET Narrative 01/16/2025 9:31 AM EST A BILATERAL DIGITAL 3D SCREENING MAMMOGRAPHY HISTORY: Routine screening. No family history of breast cancer. COMPARISON: Multiple priors dating back to 12/24/2022 Technique: Bilateral full field digital mammography (3D) was performed using standard CC and MLO projections CAD was used to evaluate this mammogram. FINDINGS: Right: No suspicious masses, groups of microcalcification or areas of architectural distortion identified. Stable typically benign parenchymal asymmetries. Left: No suspicious masses, groups of microcalcification or areas of architectural distortion identified. Stable typically benign parenchymal asymmetries. BREAST DENSITY: B - There are scattered areas of fibroglandular density. Procedure Note Jackie Garcia MD - 01/16/2025 A BILATERAL DIGITAL 3D SCREENING MAMMOGRAPHY HISTORY: Routine screening. No family history of breast cancer. COMPARISON: Multiple priors dating back to 12/24/2022 Technique: Bilateral full field digital mammography (3D) was performedusing standard CC and MLO projections CAD was used to evaluate this mammogram. FINDINGS: Right: No suspicious masses, groups of microcalcification or areas ofarchitectural distortion identified. Stable typically benign parenchymalasymmetries. Left: No suspicious masses, groups of microcalcification or areas ofarchitectural distortion identified. Stable typically benign parenchymalasymmetries. BREAST DENSITY: B - There are scattered areas of fibroglandular density. IMPRESSION: 1. No mammographic evidence of malignancy 2. Scattered fibroglandular tissue BI-RADS CATEGORY: 2 - BENIGN RECOMMENDATION: Screening bilateral mammogram is recommended in 1 year. Mammo Location: [facility], [address] [place] [address], [address], . -------- FINAL REPORT -------- Dictated By: Jackie Garcia Dictated Date: 01/16/2025 09:28 ET Assigned Physician: Jackie Garcia Reviewed and Electronically Signed By: Jackie Garcia Signed Date: 01/16/2025 09:31 ET Workstation ID: [id number] Transcribed By: Self Edit Transcribed Date: 01/16/2025 09:28 ET us Tutu Moore MD IMG BI PROCEDURES Final R esult * MR Brain wo and w Contrast [...] Signed Date: 12/23/2024 08:20 ET Workstation ID: [id number] Transcribed By: Self Edit Transcribed Date: 12/23/2024 [...] Signed Date: 12/23/2024 08:20 ET Workstation ID: [id number] Transcribed By: Self Edit Transcribed Date: 12/23/2024 08:00 ET Result [facility] Tutu Moore MD [facility] [place] PROCEDURES Final Result * Annual BMP Blood Test (12/07/2023) [facility] Annual BMP Blood Test abstracted [facility] Provider HEALTH MAINTENANCE Final Result * Cervical Cancer Screening: HPV (06/05/2023) [facility] Cervical Cancer Screening: HPV abstracted, negative [facility] Provider HEALTH MAINTENANCE Final Result * HIV Screening (06/09/2007) [facility] HIV Screening abstracted [facility] Provider HEALTH MAINTENANCE Final Result * Lipid panel (02/08/2001) [facility] LDL/HDL Ratio 2 1 - 4 Triglycerides 131 10 - 140 mg/dL Cholesterol 165 10 - 200 mg/dL HDL 76 32 - 96 mg/dL LDL Cholesterol 63 62 - 185 mg/dL Blood Venous blood specimen / Unknown us Historical Provider LAB BLOOD ORDERABLES Dee l Result from Last 3 Months or Most Recently Relevant to Health Maintenance Additional Health Concerns Active Problems Noted Date Diagnosed Date Autogenerated Problem 01/23/2025 Insurance [facility] MEDICARE Care Teams Electrician Control Equipment Relationship Specialty Start Date End Date Tutu Moore MD [address] [place] [address] PCP - General 09/17/10
--- OUTSIDE RECORDS SUMMARY | 2025-02-08 11:07 | XMS_ITS | Encounter Summary ---
Author Organization [employer] Address [address] [facility] 7 [place] [address] Care Team Providers Care Ventilation Equipment Tender Name Role Phone Tutu Moore MD Primary Care Provider [phone] Reason for Visit * Reason Onset Date Comments Call Back Request 07/06/2023 Encounter Details Date Type Department Care Team ([facility] st Contact Info) Description 07/06/2023 Telephone [facility] MEDICINE [address] [place] [address] Tutu Moore MD [address] [place] [address] Call Back Request Social History Tobacco Use [...] documented as of this encounter Care Teams Ventilation Equipment Tender Relationship Specialty Start Date End Date Tutu Moore MD [address] [place] [address] PCP - General Internal Medicine 02/23/18 documented as of this encounter
--- OUTSIDE RECORDS SUMMARY | 2025-02-08 11:07 | XMS_ITS | Encounter Summary ---
Author Organization [employer] Address [address] [facility] [address] 7t [place] [address] Care Team Providers Care Client Services Manager Name Role Phone Tutu Moore MD Primary Care Provider [phone] Encounter Details Date Type Department Care Team ([facility] st Contact Info) Description 12/31/[address] [facility] MED & PEDS [address] [place], [place] [phone] Provider, MD [place] Social History Tobacco Use [...] documented as of this encounter Care Teams Client Services Manager Relationship Specialty Start Date End Date Tutu Moore MD [address] [place] [address] PCP - General Internal Medicine 02/23/18 documented as of this encounter
--- OUTSIDE RECORDS SUMMARY | 2025-02-08 11:07 | XMS_ITS | Encounter Summary ---
Author Organization [employer] Address [address] [facility] [address] 7[address] [place] [address] Care Team Providers Care Electrical Engineering Manager Name Role Phone Tuut Moore MD Primary Care Provider [phone] Encounter Details Date Type Department Care Team ([facility] st Contact Info) Description 01/16/2025 Orders Only [facility] CHC MED & PEDS [address] [place], [place] [phone] Provider, MD [place] Social History Tobacco Use [...] is your housing situation today? I have lucydora torres 12/08/[address] you [...] Name Priority Date/Time Associated Diagnosis Comments HM MAMMOGRAPHY Routine 01/12/2025 documented in this encounter Results * Hm Mammography (01/12/2025) Anatomical Region Laterality Modality Other us Historical Provider HEALTH MAINTENANCE Final Result documented in this encounter Visit Diagnoses Not on filedocumented in this encounter Additional Health Concerns Assessment Noted Time PHQ-9 Depression Total Score: 14 025 11:09 AM EDT documented as of this encounter Care Teams Electrical Engineering Manager Relationship Specialty Start Date End Date Tutu Moore MD [address] [place] [address] PCP - General Internal Medicine 02/23/18 documented as of this encounter
--- OUTSIDE RECORDS SUMMARY | 2025-02-08 11:07 | XMS_ITS | Encounter Summary ---
Author Organization [employer] Address [address] [facility] 7t [place] [address] Care Team Providers Care Aircraft Instrument Tester Name Role Phone Tutu Moore MD Primary Care Provider [phone] Encounter Details Date Type Department Care Team ([facility] st Contact Info) Description 09/01/2023 Orders Only [facility] CHC MED & PEDS [address] [place], [place] [phone] Tutu Moore MD [address] [place] [address] Social History Tobacco Use Types Packs/Day Years [...] documented as of this encounter Care Teams Aircraft Instrument Tester Relationship Specialty Start Date End Date Tutu Moore MD [address] [place] [address] PCP - General Internal Medicine 02/23/18 documented as of this encounter
--- OUTSIDE RECORDS SUMMARY | 2025-02-08 11:07 | XMS_ITS | Encounter Summary ---
Author Organization [employer] Address [address] [facility] 7t [place] [address] Care Team Providers Care Organic Search Lead Name Role Phone Tutu Moore MD Primary Care Provider [phone] Encounter Details Date Type Department Care Team ([facility] st Contact Info) Description 12/08/2022 Orders Only [facility] CHC MED & PEDS [address] [place], [place] [phone] Tutu Moore MD [address] [place] [address] Screening for tuberculosis (Primary Dx) Social History [...] PM EDT) T Spot TB Negative Negative [facility] Comment:A negative test resu lt does [...] as aquantitative test. TS PANEL A 0 [facility] TS PANEL B 0 [facility] Negative Control Passed [facility] Positive Control Passed [facility] Comment:For additional infor diana, please refer tohttp://education.Multichannel/faq/XFG607(This link is being provided for informational/educational purposes only.)THIS TEST WAS PERFORMED AT:[facility] [id number] [place] [address]LNMRIBBLEISA ZENG MD,PHD 12/16/2022 1:28 PM EDT 12/16/2022 2:25 PM EDT Tutu Moore MD LAB BLOOD ORDERABLES Final Result [facility] [address] [place] [address] [phone] documented in this encounter Visit Diagnoses Diagnosis Screening for tuberculosis- Primary Screening examination for pulmonary tuberculosis documented in this encounter Additional Health Concerns Assessment Noted Time PHQ-9 Depression Total Score: 0 06/07/19 23 1:57 PM EDT documented as of this encounter Care Teams Organic Search Lead Relationship Specialty Start Date End Date Tutu Moore MD [address] [place] [address] PCP - General Internal Medicine 02/23/18 documented as of this encounter
--- OUTSIDE RECORDS SUMMARY | 2025-02-08 11:07 | XMS_ITS | Encounter Summary ---
Author Organization [employer] Address [address] [facility] 7t [place] [address] Care Team Providers Care Soloist Dancer Name Role Phone Tutu Moore MD Primary Care Provider [phone] Encounter Details Date Type Department Care Team ([facility] st Contact Info) Description 07/16/2023 Telephone [facility] MEDICINE [address] [place] [address] Tutu Moore MD [address] [place] [address] Social History Tobacco Use Types Packs/Day Years [...] documented as of this encounter Care Teams Soloist Dancer Relationship Specialty Start Date End Date Tutu Moore MD [address] [place] [address] PCP - General Internal Medicine 02/23/18 documented as of this encounter
--- OUTSIDE RECORDS SUMMARY | 2025-02-08 11:07 | XMS_ITS | Encounter Summary ---
Author Organization [employer] Address [address] [facility] 7 [place] [address] Care Team Providers Care Taper/Finisher Name Role Phone Tutu Moore MD Primary Care Provider [phone] Encounter Details Date Type Department Care Team ([facility] st Contact Info) Description 10/21/2023 Orders Only [facility] CH[facility] MED & PEDS [address] [place], [place] [phone] Tutu Moore MD [address] [place] [address] Obesity (BMI 30-39.9) Social History Tobacco Use [...] documented as of this encounter Care Teams Taper/Finisher Relationship Specialty Start Date End Date Tutu Moore MD [address] [place] [address] PCP - General Internal Medicine 02/23/18 documented as of this encounter
--- OUTSIDE RECORDS SUMMARY | 2025-02-08 11:07 | XMS_ITS | Encounter Summary ---
Author Organization [employer] Address 75 [facility] 7t [place] [address] Care Team Providers Care Ladle Watcher Name Role Phone Tutu Moore MD Primary Care Provider [phone] Encounter Details Date Type Department Care Team ([facility] st Contact Info) Description 10/15/2023 Orders Only [facility] [address] [place] [address] Tutu Moore MD [address] [place] [address] Obesity (BMI 30-39.9) Social History Tobacco Use [...] documented as of this encounter Care Teams Ladle Watcher Relationship Specialty Start Date End Date Tutu Moore MD [address] [place] [address] PCP - General Internal Medicine 02/23/18 documented as of this encounter
--- OUTSIDE RECORDS SUMMARY | 2025-02-08 11:07 | XMS_ITS | Encounter Summary ---
Author Organization [employer] Address 75 [facility] 7 [place] [address] Care Team Providers Care Financial Compliance Manager Name Role Phone Tutu Moore MD Primary Care Provider [phone] Reason for Visit * Reason Onset Date Comments OTHER 12/05/2022 Encounter Details Date Type Department Care Team ([facility] st Contact Info) Description 12/05/2022 Telephone [facility] MEDICINE [address] [place] [address] Tutu Moore MD [address] [place] [address] OTHER Social History Tobacco Use Types Packs/Day [...] documented as of this encounter Care Teams Financial Compliance Manager Relationship Specialty Start Date End Date Tutu Moore MD [address] [place] [address] PCP - General Internal Medicine 02/23/18 documented as of this encounter
--- OUTSIDE RECORDS SUMMARY | 2025-02-08 11:07 | XMS_ITS | Encounter Summary ---
Author Organization [employer] Address [address] [facility] [address] 7t [place] [address] Care Team Providers Care Customer Support Agent Name Role Phone Tutu Moore MD Primary Care Provider [phone] Encounter Details Date Type Department Care Team (Late st Contact Info) Description 11/02/2023 Abstract [facility] MED & PEDS [address] [place], [place] [phone] Lenin [place], [place] Social History Tobacco Use Types Packs/Day [...] documented as of this encounter Care Teams Customer Support Agent Relationship Specialty Start Date End Date Tutu Moore MD [address] [place] [address] PCP - General Internal Medicine 02/23/18 documented as of this encounter
--- OUTSIDE RECORDS SUMMARY | 2025-02-08 11:07 | XMS_ITS | Continuity of Care Document ---
Author Organization [facility] Address [address] [facility] [place] [address] Care Team Providers Care Membership Advisor Name Role Phone STEPHAN CHAVEZ Referring Provider Unavailabl e Unavailable Referring Provider [facility] Primary Care Provider [phone] Assessment Encounter Date Assessment Date Assessment LastModified [...] By Organization Details Last Modified Time 12/28/2024 [id number] PREVIOUS DISCUSS IONS >>>>>>>>>>>>>BOTOX PROCEDURE 11/28/2016 300 [...] Time DATA REVIEW completed Manuel John MD [address] [place], [place] [address], [address], [facility] 12/28/2024 17:28:59 botulinum injection completed Manuel John MD [address] [place] [address], [place], [address], [facility] 11/24/2024 14:35:45 5 botulinum injection completed Manuel John MD [address] [place] [address] [place], [address], [facility] 06/29/2024 14:23:36 5 botulinum injection completed Manuel John MD [address] [place] [address] [place], [address], [facility] [employer] [facility] 03/30/2024 14:55:31 5 DATA REVIEW completed Manuel John MD [address] [place] [address] [place], [address], [facility] 02/29/2024 14:32:34 Imaging Results None recorded. Procedure [...] LastModified Time Tobacco Smoking Status Never Smoker [facility] 09/07/2023 09:38:49 What Is Your Level Of Caffeine Consumption? Occasional Information not available 09/07/2023 What Is The Highest Grade Or Level Of School You Have Completed Or The Highest Degree You Have Received? [id number] Information not available 09/07/2023 Which Of Your [...] ICD10 Code Diagnosis IMO Codes Diagnosis Note [id number] Manuel John MD [facility] [address] [place] [address] [place] [address] 12/28/2024 15:00:53 01/03/2025 16:17:57 Migraine without aura 15940011 G43.009 Health Concerns Section Related Observation LastModified by Organization Detai ls LastModified Time None Recorded Concern Status LastModified by Organization Details LastModified Time None Recorded Payers Encounter Date Sequence Insurance Name Policy Number Policy Carrillo Covered Member ID Carrillo Member ID Guarantor Name 12/28/2024 1 [email or web address] [facility] Banno [id number] Pema Pena [id number] Pema Pena 12/28/2024 2 [place] [facility] Pema Pena [id number] Pema Pena Notes Date Note Type Note [...] This was not sufficient. She presented to [facility] ER December 13, 2024 where hyponatremia [...] father and she needed to go to [place] where she stayed for 9 months. She supposes that the Botox worked ideally as it had previously but she does not remember. In any case, she does not remember headaches bothering her particularly in [place] maybe it was the adrenaline. However, she [...] switched jobs. 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 She was working in going to [employer] through ~mid 2022. Since then, she has obtained a job working from home, still as a manager social services. She is on the computer much of [...] her headaches. 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 She likes the idea philosophically I d never put my mother in a correction. She continues on Topamax which she restarted [...] Baclofen also cause tiredness. Manuel John MD [address] [place] [address] [place], [address], [facility] 12/28/2024 18:55:02 OBGyn Episode No OBEpisode recorded.
--- OUTSIDE RECORDS SUMMARY | 2025-02-08 11:08 | XMS_ITS | Encounter Summary ---
Author Organization [employer] Address 75 [facility] 7 [place] [address] Care Team Providers Care Metalizing Machine Operator Automatic Name Role Phone Tutu Moore MD Primary Care Provider [phone] Reason for Visit * Reason Comments Med Change Request Encounter Details Date Type Department Care Team ([facility] st Contact Info) Description 04/08/2023 Refill [facility] [address] [place] [address] Tutu Moore MD 505 [place] [address] Stress incontinence (Primary Dx); Hypertension, unspecified type [...] documented as of this encounter Care Teams Metalizing Machine Operator Automatic Relationship Specialty Start Date End Date Tutu Moore MD [address] [place] [address] PCP - General Internal Medicine 02/23/18 documented as of this encounter
--- OUTSIDE RECORDS SUMMARY | 2025-02-08 11:08 | XMS_ITS | Encounter Summary ---
Author Organization [employer] Address [address] [place] [address] Care Team Providers Care Tube Coverer Name Role Phone Tutu Moore MD Primary Care Provider [phone] Reason for Visit * Reason Comments Med Change Request Encounter Details Date Type Department Care Team ([facility] Contact Info) Description 05/14/2022 Refill [facility] [address] [place], [place] [phone] Quin Rapp MD 505 [place] [address] Atopic dermatitis, unspecified type Social History Tobacco [...] type documented in this encounter Care Teams Tube Coverer Relationship Specialty Start Date End Date Tutu Moore MD 505 [place], [place] [phone] PCP - General Internal Medicine 1/1/19 documented as of this encounter
--- OUTSIDE RECORDS SUMMARY | 2025-02-08 11:08 | XMS_ITS | Encounter Summary ---
Author Organization [employer] Address [address] [place] [address] [address] [place] [address] Care Team Providers Care Alternative Education Teacher Name Role Phone Tutu Moore MD Primary Care Provider [phone] Reason for Referral * Consultation (Urgent) - Closed Specialty Diagnoses / Procedures Referred By Contgertrudis t Referred To Contact Nephrology Diagnoses Hyponatremia Tutu Moore MD [address] [place] [address] Phone: tel: fax: [facility] [address], [address] [place] [address] Phone: tel: fax: Referral ID Status Reason Start Date Expiration Date V isits Requested Visits Authorized [id number] Closed Specialty Services Required 12/26/2024 12/26/2025 1 1 Encounter Details Date Type Department Care Team (Late st Contact Info) Description 12/23/2024 Orders Only [facility]S [address] [place], [place] [phone] Tutu Moore MD [address] [place], [place] [phone] Viral illness (Primary Dx); Hyponatremia Social History [...] EST) Sodium 128(L) 135 - 145 mmol/L [facility] Potassium 4.1 3.3 - 5.1 mmol/L [facility] Chloride 99 96 - 108 mmol/L [facility] Carbon Dioxide 23 22 - 29 mmol/L [facility] Anion Gap 10(L) 12 - 20 [facility] Urea Nitrogen (BUN) 8(L) 9 - 16 mg/dL [facility] Creatinine, Serum 0.59 0.5 - 1.4 mg/dL [facility] Estimated Glomerular Filt Rate >60 [facility] Comment:Chronic Kidney Disea se: Estimated GFR < 60 mL/min/1.50v1Mupzvn Kidney Disease: Estimated GFR < 15 mL/min/1.73m2 Glucose 84 60 - 115 mg/dL [facility] Calcium 9.0 8.4 - 10.2 mg/dL [facility] Blood Venous blood specimen / Unknown 12/26/2024 10:05 AM EST 12/26/2024 2:06 PM EST us Tutu Moore MD LAB BLOOD ORDERABLES Final Result [facility] [address] [place] [address] [phone] documented in this encounter Visit Diagnoses Diagnosis Viral illness- Primary Unspecified viral infection, in conditions classified elsewhere and of unspecified site Hyponatremia Hyposmolality and/or hyponatremia documented in this encounter Additional Health Concerns Assessment Noted Time PHQ-9 Depression Total Score: 14 025 11:09 AM EDT documented as of this encounter Care Teams Alternative Education Teacher Relationship Specialty Start Date End Date Tutu Moore MD [address] [place] [address] PCP - General Internal Medicine 02/23/18 documented as of this encounter
--- OUTSIDE RECORDS SUMMARY | 2025-02-08 11:08 | XMS_ITS | Encounter Summary ---
Author Organization [employer] Address [address] [place] [address] Care Team Providers Care Business Development Sales Executive Name Role Phone Tutu Moore MD Primary Care Provider [phone] Reason for Visit * Reason Comments Med Refill Encounter Details Date Type Department Care Team ([facility] st Contact Info) Description 11/01/2022 Refill [facility] PEDS [address] [place], [place] [phone] Tutu Moore MD [address] [place] [address] Social History Tobacco Use Types Packs/Day Years [...] as of this encounter Care Teams Business Development Sales Executive Relationship Specialty Start Date End Date Tutu Moore MD [address] [place] [address] PCP - General Internal Medicine 02/23/18 documented as of this encounter
--- OUTSIDE RECORDS SUMMARY | 2025-02-08 11:08 | XMS_ITS | Encounter Summary ---
Author Organization [employer] Address 75 [facility] 7t [place] [address] Care Team Providers Care Pool Nurse Name Role Phone Tutu Moore MD Primary Care Provider [phone] Encounter Details Date Type Department Care Team ([facility] st Contact Info) Description 04/09/2023 Orders Only [facility] MED & PEDS [address] [place], [place] [phone] Tutu Moore MD 505 [place] [address] Social History Tobacco Use Types Packs/Day Years [...] documented as of this encounter Care Teams Pool Nurse Relationship Specialty Start Date End Date Tutu Moore MD [address] [place] [address] PCP - General Internal Medicine 02/23/18 documented as of this encounter
--- OUTSIDE RECORDS SUMMARY | 2025-02-08 11:08 | XMS_ITS | Data Portability ---
Author Organization [facility]ly [facility] [employer] Address [address] [place] [address] [place] [address] Care Team Providers Care Director Biomedical Engineering Name Role Phone STEPHAN CHAVEZ Referring Provider Unavailabl e Unavailable Referring Provider [facility] Primary Care Provider [phone] Assessment Encounter Date Assessment Date Assessment LastModified [...] topiramate, through summer 2016; Headache morbidity resolution, ~5926-3766, for unknown reasons; Return of headaches causing [...] By Organization Details Last Modified Time 02/29/2024 [id number] PREVIOUS DISCUSS IONS >>>>>>>>>>>>>BOTOX PROCEDURE 11/28/2016 300 [...] minutes [email or web address] Not available 02/29/2024 14:38:06 12/28/2024 [id number] PREVIOUS DISCUSS IONS >>>>>>>>>>>>>BOTOX PROCEDURE 11/28/2016 300 [...] Time DATA REVIEW completed Manuel John MD [address] [place] [address] A[place] Ruiz, [phone], [facility] 12/28/2024 17:28:59 5 botulinum injection completed Manuel John MD [address] [place] [address] A[place] Ruiz, [phone], [facility] Neurology [facility] 11/24/2024 14:35:45 5 botulinum injection completed Manuel John MD [address] [place] [address] ANA Ruiz, [address], [facility] Neurology [facility] 06/29/2024 14:23:36 5 botulinum injection completed Manuel John MD [address] [place] [address] ANA Ruiz, [address], [facility] Neurology [facility] 03/30/2024 14:55:31 5 DATA REVIEW completed Manuel John MD [address] [place] [address] ANA Ruiz, [address], [facility] Neurology [facility] 02/29/2024 14:32:34 Imaging Results None recorded. [...] LastModified Time Tobacco Smoking Status Never Smoker [facility] Neurology [facility] 09/07/2023 09:38:49 What Is Your Level Of Caffeine Consumption? Occasional Information not available 09/07/2023 What Is The Highest Grade Or Level Of School You Have Completed Or The Highest Degree You Have Received? [id number] Information not available 09/07/2023 Which Of Your [...] Not available 10:05:44 Medical History Condition Response Headaches Y Vitamin B12 deficiency Y Asthma Y Vitamin D Deficiency Y High Blood Pressure or Hypertension Y Gynecological HistoryNo gynecological history recorded. Obstetrics History GPAL:G 0 P 0 0 0 0 Past Encounters Encounter ID Performer Location Encounter Start Date Encounter Closed Date Diagnosis/Indication Diagnosis SNOMED-CT Code Diagnosis ICD10 Code Diagnosis IMO Codes Diagnosis Note [id number] Manuel John MD [facility] [address] [place] [address] [place] [address] 09/07/2023 09:04:05 09/07/2023 10:39:10 Migraine without aura 98913689 G43.009 [id number] Manuel John MD [facility] [address] [place] [address] [place] [address] 02/29/2024 13:54:07 02/29/2024 16:36:50 Migraine without aura 33603569 G43.009 [id number] Manuel John MD [facility] [address] [place] [address] [place] [address] 03/30/2024 13:38:53 03/30/2024 15:53:29 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 74 767328 G24.3 Facial spasm 19515488 G5 1.33 [id number] Manuel John MD [facility] [address] [place] [address] [place] [address] 06/29/2024 12:08:43 06/29/2024 15:08:16 Primary torsion dystonia 80272850 G24.1 Spasmodic torticollis 74 774279 G24.3 Facial spasm 12130575 G5 1.33 [id number] Manuel John MD [facility] [address] [place] [address] [place] [address] 11/24/2024 12:53:41 11/30/2024 12:49:14 Primary torsion dystonia 83333894 G24.1 Spasmodic torticollis 74 849339 G24.3 Facial spasm 68370282 G5 1.33 [id number] Manuel John MD [facility] [address] [place] [address] [place] [address] 12/28/2024 15:00:53 01/03/2025 16:17:57 Migraine without aura 25250730 G43.009 Health Concerns Section Related Observation LastModified by Organization Detai ls LastModified Time None Recorded Concern Status LastModified by Organization Details LastModified Time None Recorded Advance Directives Directive None Recorded Payers Insurance Date Sequence Insurance Name Policy Number Policy Carrillo Covered Member ID Carrillo Member ID Guarantor Name 01/03/2025 1 [facility] [id number] 1 Pema Pena [id number] Pema Pena 09/07/2023 2 [place] [facility] Pema Pena [id number] Pema Pena 01/24/2025 2 [place] [facility] Pema Pena [id number] Pema Pena Notes Date Note Type Note [...] jobs. 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 She is on the computer much of [...] her headaches. 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 She likes the idea philosophically I d never put my mother in a assisted. She continues on Topamax which she restarted [...] Baclofen also cause tiredness. Manuel John MD [address] [place] [address] [place], [address], [facility] Neurology [facility] 02/29/2024 14:38:35 03/30/2024 text/html Follow-up for Botox injections for muscle spasm triggering shoulder pain, neck pain and headache.-She is accompanied by her . >>>>>>>>>>>> BOTOX #1 (since November 28, 2016)We follow the amount and locations from chart note on Botox procedure November 28, 2016.Except: omitted SCM and lower trap edge -- no referral. Manuel John MD [address] [place] [address] [place], [address], [facility] [employer] [facility] 03/30/2024 15:46:16 06/29/2024 text/html Follow-up for [...] edge -- no referral. Manuel John MD [address] [place] [address] [place], [address], [facility] Neurology [email or web address] 06/29/2024 14:24:11 11/24/2024 text/html Follow-up for Botox [...] edge -- no referral. Manuel John MD [address] [place] [address] [place], [address], [facility] [employer] 11/24/2024 14:37:58 12/28/2024 text/html Neurology follow-up for [...] jobs. 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 She is on the computer much of [...] her headaches. 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 She likes the idea philosophically I d never put my mother in a assisted. She continues on Topamax which she restarted [...] Baclofen also cause tiredness. Manuel John MD [address] [place] [address], [place], [address], [facility] 12/28/2024 18:55:02 OBGyn Episode No OBEpisode recorded.
--- OUTSIDE RECORDS SUMMARY | 2025-02-08 11:08 | XMS_ITS | Encounter Summary ---
Author Organization [employer] Address 75 [facility] 7 [place] [address] Care Team Providers Care Press Tender Smoke Signal Name Role Phone Tutu Moore MD Primary Care Provider [phone] Encounter Details Date Type Department Care Team ([facility] Contact Info) Description 01/02/2025 Results Follow-Up [facility] MED & PEDS [address] [place], [place] [phone] Tutu Moore MD 505 [place] [address] Basic Metabolic Panel Social History Tobacco Use [...] documented as of this encounter Care Teams Press Tender Smoke Signal Relationship Specialty Start Date End Date Tutu Moore MD 505 [place] [address] PCP - General Internal Medicine 02/23/18 documented as of this encounter
--- OUTSIDE RECORDS SUMMARY | 2025-02-08 11:08 | XMS_ITS | Encounter Summary ---
Author Organization [employer] Address 75 [facility] 7 [place] [address] Care Team Providers Care Ruling Machine Set Up Operator Name Role Phone Tutu Moore MD Primary Care Provider [phone] Reason for Visit * Reason Comments Med Refill Encounter Details Date Type Department Care Team ([facility] st Contact Info) Description 11/01/2022 Refill [facility] MEDICINE [address] [place] [address] Quin Rapp MD 505 [place] [address] Hypertension, unspecified type Social History Tobacco Use [...] documented as of this encounter Care Teams Ruling Machine Set Up Operator Relationship Specialty Start Date End Date Tutu Moore MD 505 [place] [address] PCP - General Internal Medicine 02/23/18 documented as of this encounter
--- OUTSIDE RECORDS SUMMARY | 2025-02-08 11:08 | XMS_ITS | Encounter Summary ---
Author Organization [employer] Address [address] [place] [address] 7 [place] [address] Care Team Providers Care Coffee Roaster Helper Name Role Phone Tutu Moore MD Primary Care Provider [phone] Encounter Details Date Type Department Care Team ([facility] st Contact Info) Description 11/21/2022 Orders Only [facility] MED & PEDS 505 [place], [place] [phone] Tutu Moore MD [address] [place] [address] Obesity (BMI 30-39.9) (Primary Dx) Social History [...] documented as of this encounter Care Teams Coffee Roaster Helper Relationship Specialty Start Date End Date Tutu Moore MD [address] [place] [address] PCP - General Internal Medicine 02/23/18 documented as of this encounter
--- OUTSIDE RECORDS SUMMARY | 2025-02-08 11:09 | XMS_ITS | Continuity of Care Document ---
Author Organization [facility]ly [facility] [employer] [facility] Address [address] [facility] [address] [place] RUIZ [address] Care Team Providers Care Electric Power Line Examiner Name Role Phone STEPHAN CHAVEZ Referring Provider Unavailabl e Unavailable Referring Provider [facility] Primary Care Provider [phone] Assessment No assessment recorded. Plan of Treatment Reminders Order Date Submit Date Provider Last Modified By Organization Details Last Modified Time Details Appointments BOTOX 026 01:00PM Maunel John MD PhD Not available Not available [...] 5 DATA REVIEW completed Manuel John MD [address] [place], [place] [address], [address], [facility] Neurology [facility] 12/28/2024 17:28:59 5 botulinum injection completed Manuel John MD [address] [place], [place] [address], [address], [facility] Neurology [facility] 11/24/2024 14:35:45 5 botulinum injection completed Manuel John MD [address] [place], [place] [address], [address], [facility] Neurology [facility] 06/29/2024 14:23:36 5 botulinum injection completed Manuel John MD [address] [place] [address] [place], [address], [facility] Neurology [employer] 03/30/2024 14:55:31 DATA REVIEW completed Manuel John MD [address] [place] [address] [place], [address], [facility] Neurology [facility] 02/29/2024 14:32:34 Imaging Results None recorded. [...] Smoking Status Never Smoker [place] [facility] [facility] 09/07/2023 09:38:49 What Is Your Level Of Caffeine Consumption? Occasional Information not available 09/07/2023 What Is The Highest Grade Or Level Of School You Have Completed Or The Highest Degree You Have Received? [id number] Information not available 09/07/2023 Which Of Your [...] ICD10 Code Diagnosis IMO Codes Diagnosis Note [id number] Manuel John MD [facility] [address] [place] [address] [place] [address] 11/24/2024 12:53:41 11/30/2024 12:49:14 Primary torsion dystonia 42847351 G24.1 Spasmodic torticollis 74 761222 G24.3 Facial spasm 86696531 G5 1.33 Health Concerns Section Related Observation LastModified by Organization Detai ls LastModified Time None Recorded Concern Status LastModified by Organization Details LastModified Time None Recorded Payers Encounter Date Sequence Insurance Name Policy Number Policy Carrillo Covered Member ID Carrillo Member ID Guarantor Name 11/24/2024 1 [facility] [id number] 1 Pema Hightowertiz [id number] Pema Pena 11/24/2024 2 [place] [facility] Pema Pena [id number] Pema Pena Notes Date Note Type Note [...] edge -- no referral. Manuel John MD [address] [place] [address] [place], [address], [facility] Neurology [facility] 11/24/2024 14:37:58 OBGyn Episode No OBEpisode recorded.
--- OUTSIDE RECORDS SUMMARY | 2025-02-08 11:09 | XMS_ITS | Clinical Summary ---
Author Organization [employer] Address [address] [facility] 7[address] [place] [address] Care Team Providers Care Nurse Consultant Name Role Phone Tutu Moore MD Primary Care Provider [phone] Allergies No known active allergies Medications buPROPion [...] 7 (seven) days. 11/03/19 25 026 Active sucralfate (Carafate) 1 g tabletIndication s:Epigastric [...] DAYS 18 tablet 1 12/30/19 25 Active ibuprofen 800 MG tablet TAKE 1 TABLET BY MOUTH EVERY 8 HOURS IF NEEDED FOR MILD PAIN, FEVER, MODERATE PAIN OR HEADACHES. 45 tablet 1 02/03/20 25 Active ibuprofen 800 MG tablet Take 1 tablet (800 mg) by mouth every 8 (eight) hours if needed for mild pain, fever, moderate pain or headaches. 45 tablet 1 12/13/19 25 025 Discontinued Active Problems Problem Noted Date Diagnosed Date Paroxysmal supraventricular tachycardia 01/19/20 Essential hypertension 12/21/2017 Headache 12/30/2012 Cobalamin deficiency 12/30/2012 Insomnia 12/30/2012 Stress incontinence 12/30/2012 Vitamin D deficiency 12/30/2012 Depressive disorder 10/18/2012 Anxiety 10/18/2012 Encounters Date Type Department Care Team Description 02/02/2025 Refill [facility] [address] [place] [phone] Catalina Nava MD 01/17/2025 10:15 AM EST Office Visit [address] [address] Keena Stuart FNP Acute diarrhea (Primary Dx) 01/17/2025 Travel 01/16/[address] [address] Tutu Moore MD Nurse Triage 01/16/2025 Orders Only [facility] [address] [place] [address] Dakotah Gaffney MD 01/02/2025 9:00 AM EST Office Visit [facility] [address] [place] [address] Tutu Moore MD Hyponatremia (Primary Dx); Chronic migraine with aura without status migrainosus, not intractable 01/02/2025 Results Follow-Up [facility] [address] [place] [address] Tutu Moore MD Basic Metabolic Panel 01/02/2025 Travel 12/30/2024 Telephone [facility] [address] [place] [address] Tutu Moore MD chart prep 12/29/2024 Refill [facility] [address] [place] [address] Tutu Moore MD Dizziness and giddiness 12/27/2024 Telephone [facility] [address] [place] [address] Tutu Desai MD 12/26/2024 9:00 AM EST Office Visit [facility] [address] [place] [address] Tutu Moore MD Hyponatremia (Primary Dx); Epigastric pain 12/26/2024 Orders Only [facility] [address] [place] [address] Tutu Moore MD 12/26/2024 Travel 12/23/2024 Orders Only [facility] [address] [place] [address] Tutu Moore MD Viral illness (Primary Dx); Hyponatremia 12/20/2024 Results Follow-Up [facility] [address] [place] [phone] Delores García RN Basic Metabolic Panel 12/19/2024 10:15 AM EDT Office Visit [facility] [address] [place] [address] Tutu Moore MD Hyponatremia (Primary Dx); Epigastric pain; Essential hypertension 12/19/2024 Orders Only [facility] [address] [place] [address] Tutu Desai MD Hyponatremia (Primary Dx) 12/19/2024 Travel 12/16/2024 Telephone [facility] [address] [place] [phone] Tutu Desai MD CHART PREP 12/15/2024 Telephone [facility] [address] [place] [phone] Tutu Moore MD Call Back Request 12/13/2024 Telephone [facility] [address] [place] [phone] Tutu Moore MD triage 12/12/2024 11:30 AM EDT Office Visit [address] [address] Catalina Nava MD Viral illness (Primary Dx); Chronic cluster headache, not intractable; Essential hypertension 12/12/2024 Travel 12/12/2024 Telephone [facility] [address] [place], [place] [phone] Tutu Moore MD Nurse Triage 12/05/2024 3:45 PM EDT Office Visit [facility] [address] [place] [address] Tutu Moore MD Vertigo (Primary Dx) 12/05/2024 Travel 12/01/2024 Telephone [facility] [address] [place] [address] Tutu Moore MD Care Coordination 12/01/2024 Refill [facility] [address] [place], [place] [phone] Tutu Moore MD from Last 3 Months Immunizations Immunization [...] Sign Reading Time Taken Comments Blood Pressure 128/80 01/17/2025 10:30 AM EST Pulse 93 01/17/2025 10:30 AM EST Temperature 36.7 C (98 F) 01/17/2025 10:30 AM EST Respiratory Rate 21 01/17/2025 10:30 AM EST Oxygen Saturation 98% 01/17/2025 10:30 AM EST Inhaled Oxygen Concentration - - Weight 84.6 kg (186 lb 9.6 oz) 01/17/2025 10:30 AM EST Height 165.1 cm (5' 5 ) 01/17/2025 10:30 AM EST Body Mass Index 31.05 01/17/2025 10:30 AM EST Plan of Treatment Health Maintenance [...] 06/19/2025 12/19/2024, 025 Disability Screening 12/19/2025 12/19/2024 Tobacco Screening 01/02/2026 01/02/2025 Mammogram 01/12/2027 01/12/2025, 12/25, 01/12/2025, Additional history exists Zoster Vaccines (1 of 2) 10/12/2027 Lipid [...] Associated Diagnosis Comments HM MAMMOGRAPHY Routine 01/12/2025 BASIC METABOLIC PANEL Routine 01/02/2025 9:54 AM [...] PM EDT Chronic cluster headache, not intractable PAP SMEAR Routine 06/12/2023 IFOBT Routine 06/05/2023 9:49 AM EDT LIPID PANEL, STANDARD Routine 11/17/2022 9:54 AM EDT Essential hypertension from Last 3 Months or Most Recently Relevant to Health Maintenance Results * Mammography (01/12/2025) Anatomical Region Laterality Modality Other Historical Provider HEALTH MAINTENANCE Final Result * (ABNORMAL) Basic Metabolic Panel (01/02/2025 9:54 AM EST) Only the most recent of3 resultswithin the time period is included. Sodium 132(L) 135 - 145 mmol/L [facility] Potassium 4.2 3.3 - 5.1 mmol/L [facility] Chloride 102 96 - 108 mmol/L [facility] Carbon Dioxide 24 22 - 29 mmol/L [facility] Anion Gap 10(L) 12 - 20 [facility] Urea Nitrogen (BUN) 11 9 - 16 mg/dL [facility] Creatinine, Serum 0.59 0.5 - 1.4 mg/dL [facility] Estimated Glomerular Filt Rate >60 [facility] Comment:Chronic Kidney Disea se: Estimated GFR < 60 mL/min/1.36v6Eucwlw Kidney Disease: Estimated GFR < 15 mL/min/1.73m2 Glucose 86 60 - 115 mg/dL [facility] Calcium 9.0 8.4 - 10.2 mg/dL [facility] Blood Venous blood specimen / Unknown 01/02/2025 9:54 AM EST 01/02/2025 2:21 PM EST Tutu Moore MD LAB BLOOD ORDERABLES Final Result [facility] [address] [place] [phone] * Osmolality, Urine (12/26/2024 10:08 AM EST) OSMOLALITY URINE 452 373 - 1,093 mosm/kg [facility] 12/26/2024 10:0 8 AM EST 12/26/2024 1:59 PM EST Tutu Moore MD LAB URINE ORDERABLES Final Result Performing Organization Address [facility] de Phone Number [facility] [address] [place] [phone] * Sodium Without creatinine, Random Urine (12/23/2024 9:00 AM EDT) [facility] Sodium Urine Random 69.0 mmol/L [facility] Urine Urine specimen obtained by clean catch procedure / Unknown 12/23/2024 9:00 AM EDT 12/23/2024 2:00 PM EDT us Tutu Moore MD LAB BLOOD ORDERABLES Final Result Performing Organization Address [facility] de Phone Number [facility] [address] [place] [phone] * TSH W/Reflex to FT4 (12/23/2024 8:59 AM EDT) [facility] TSH reflex Free T4 0.81 0.32 - 4.0 uIU/mL [facility] Blood Venous blood specimen / Unknown 12/23/2024 8:59 AM EDT 12/23/2024 2:00 PM EDT Tutu Moore MD LAB BLOOD ORDERABLES Final Result Performing Organization Address [facility] de Phone Number [facility] [address] [place] [phone] * (ABNORMAL) Osmolality, Serum (12/23/2024 8:59 AM EDT) Pathologist [facility] Osmolality (Serum) 270(L) 281 - 305 mosm/kg [facility] Blood Venous blood specimen / Unknown 12/23/2024 8:59 AM EDT 12/23/2024 2:00 PM EDT us Tutu Moore MD LAB BLOOD ORDERABLES Final Result Performing Organization Address [facility] Co de Phone Number [facility] [address] [place] [phone] * Mr Brain w/ and w/o Contrast (12/19/2024) Anatomical Region Laterality Modality Brain Magnetic Resonan ce us Tutu Moore MD IMG MRI PROCEDURES Final Re sult * POCT Rapid Influenza B SOOD ID NOW (12/12/2024 2:23 PM EDT) Influenza B Negative Negative, Indeterminate [facility] QC Media Lot # [id number] [facility] Lot# Expiration Date [facility] Swab 12/12/2024 2:23 PM EDT Catalina Nava MD POINT OF CARE TEST ENTER/EDIT OR DERABLES Final Result Performing Organization Address [facility] Co de Phone Number [facility] [address] [place] [phone] * POCT Rapid Influenza A SOOD ID NOW (12/12/2024 2:23 PM EDT) Influenza A Negative Negative, Indeterminate [facility] QC Media Lot # [id number] [facility] Lot# Expiration Date [facility] Swab 12/12/2024 2:23 PM EDT us Catalina Nava MD POINT OF CARE TEST ENTER/EDIT OR DERABLES Final Result Performing Organization Address [facility] Co de Phone Number [facility] [address] [place] [address] [phone] * POCT Rapid Covid-19 BinaxNOW (12/12/2024 12:22 PM EDT) Pathologist [facility] Rapid COVID Ag Negative QC Media Lot # [id number] Lot# Expiration Date [id number] Swab 12/12/2024 12:2 2 PM EDT Catalina Nava MD POINT OF CARE TEST ENTER/EDIT OR DERABLES Final Result * Pap Smear (06/12/2023) Pathologist [facility] Pap Smear 1. NILM 1. NILM Swab 06/12/2023 Historical Provider LAB CYTOLOGY ORDERABLES F inal Result * gFOBT (06/05/2023 9:49 AM EDT) Historical Provider POINT OF CARE TEST ENTER/ EDIT ORDERABLES Final Result * Lipid Panel, Standard (11/17/2022 9:54 AM EDT) Pathologist [facility] Triglycerides 113 <150 mg/dL [facility] Comment:Desirable Triglyceri de: less than 150 mg/dLBorderline High Triglyceride 150-199 mg/dLHigh Triglyceride: 200-499 mg/dLVery High Triglyceride: greater than or equal to 5OO mg/dL Cholesterol 149 <200 mg/dL [facility] Comment:Desirable Cholestero l: less than 200 mg/dLBorderline High Cholesterol: 200-239 mg/dLHigh Cholesterol: greater than 239 mg/dL LDL Cholesterol Calculated 63 <100 mg/dL [facility] Comment:Desirable LDL: less than 100 mg/dLNear Optimal/Above Optimal LDL: 110- 129 mg/dLBorderline High LDL: 130-159 mg/dLHigh LDL: 160-189 mg/dLVery High LDL: greater than or equal to 190 mg/dL HDL Cholesterol 64 >40 mg/dL [facility] Comment:Desirable HDL: great er than 40 mg/dL Note: This HDL assay may give artificially low results in patients with liver disease. Blood Venous blood specimen / Unknown 11/17/2022 9:54 AM EDT 11/17/2022 2:06 PM EDT Tutu Moore MD LAB BLOOD ORDERABLES Final Result [facility] [address] [place] [phone] from Last 3 Months or Most Recently Relevant to Health Maintenance [place] [address] [place] [address] Member Subscriber Plan / Payer (Ef fective 2024-Present) Name:Ajit Pena Relation to Subscriber:Self Name:Ajit Pena Payer ID:Not on file Group ID:Not on file Type:Medicaid Address: [facility] [id number] [place] [id number] [address] , [address] [address] MEDICARE [place] Care Teams Nurse Consultant Relationship Specialty Start Date End Date Tutu Moore MD [address] [place] [phone] PCP - General Internal Medicine 02/23/18
--- OUTSIDE RECORDS SUMMARY | 2025-02-08 11:09 | XMS_ITS | Encounter Summary ---
Author Organization [employer] Address [address] [facility] 7 [place] [address] Care Team Providers Care Netbackup Engineer Name Role Phone Tutu Moore MD Primary Care Provider [phone] Reason for Visit * Reason Onset Date Comments Nurse Triage 11/02/2024 Encounter Details Date Type Department Care Team ([facility] st Contact Info) Description 11/02/2024 Telephone [facility] [address] [place] [address] Tutu Moore MD [address] [place] [phone] Nurse Triage Social History Tobacco Use Types [...] the past 12 months, has t he [employer], gas, oil or water company threatened to [...] Pt is advised no available apts in [facility] today or the next few days. Track Liner Operator can forward this information to [facility] team nurses for possible apt next week. Pt is advised may be seen by provider in [facility] today open till 8pm. Pt is given [facility] address [address] [facility] [place]. Pt will have transport there after work. [...] documented as of this encounter Care Teams Netbackup Engineer Relationship Specialty Start Date End Date Tutu Moore MD [address] [place] [address] PCP - General Internal Medicine 02/23/18 documented as of this encounter
--- OUTSIDE RECORDS SUMMARY | 2025-02-08 11:09 | XMS_ITS | Encounter Summary ---
Author Organization [employer] Address [address] [place] [address] Care Team Providers Care Iron Installer Name Role Phone Tutu Moore MD Primary Care Provider [phone] Reason for Visit * Reason Comments Med Refill Encounter Details Date Type Department Care Team ([facility] st Contact Info) Description 04/27/2022 Refill [facility] [address] [place], [place] [phone] Tutu Moore MD [address] [place] [address] Chronic pain of right knee (Primary Dx); [...] cause documented in this encounter Care Teams Iron Installer Relationship Specialty Start Date End Date Tutu Moore MD [address] [place] [address] PCP - General Internal Medicine 02/23/18 documented as of this encounter
== END 2025-02-08 10:08 | disposition home or self-care (01) ==
LOC: HO.HKAS 09:38
PROVIDERS: PCP Internal Medicine; Visit Provider Internal Medicine Hypertension Specialist
DX: E87.1 Hypo-osmolality and hyponatremia (principal); R51.9 Headache, unspecified
CPT/HCPCS: 99214

== ENCOUNTER 2025-02-08 09:37 | Outpatient (REF) | payer OTHER, MEDICARE, MEDICAID, SELFPAY ==
[2025-02-08 15:01] LABS: Anion Gap 9 (12-20); Blood Urea Nitrogen 9 mg/dL (9-16); Calcium 8.7 mg/dL (8.4-10.2); Carbon Dioxide 25 mmol/L (22-29); Chloride 102 mmol/L (96-108); Estimated Glomerular Filt Rate > 60; Potassium 4.4 mmol/L (3.3-5.1); Sodium 132 mmol/L (135-145)
== END 2025-02-08 09:38 | disposition home or self-care (01) ==
LOC: HO.HKASLDS 09:37
PROVIDERS: PCP Internal Medicine; Visit Provider Internal Medicine Hypertension Specialist
DX: E87.1 Hypo-osmolality and hyponatremia (principal); R51.9 Headache, unspecified; I95.9 Hypotension, unspecified; Z87.442 Personal history of urinary calculi
CPT/HCPCS: 36415; 80048